=== PATIENT | male | born 1935 | race Caucasian/White ===

== ENCOUNTER 2020-03-28 13:09 | Inpatient (IN) | payer MEDICARE, SELFPAY ==
[2020-03-28] VITALS (14 sets, daily range): BP systolic 98–184; BP diastolic 59–98; PULSE 72–117; RESP 17–94; TEMP 36.3–36.9; O2SAT 93–100; BMI 35.6
--- NOTE | ~2020-03-28 | XR_ITS ---
XR chest 2V DATE: 03/31/2020 10:06 INDICATION: Shortness of breath. Pneumonia. Pleural effusion. Congestive heart failure. Weakness. TECHNIQUE: AP and lateral views COMPARISON: 03/28/2020 CT chest abdomen pelvis 03/28/2020 portable AP chest FINDINGS: Again noted are bilateral pleural effusions, small on the left, particularly large on the r ight. There are bibasilar infiltrates and/or atelectasis. There is aortic arch calcification. Degenerative changes of the thoracic and lumbar spine. IMPRESSION: Bilateral pleural effusions, right larger than left and bilateral lower lung infiltrate a nd/or atelectasis, increased on the left since 03/28/2020 Reviewed, dictated and finalized at location A. IMPRESSION: Bilateral pleural effusions, right larger than left and bilateral l ower lung infiltrate and/or atelectasis, increased on the left since 03/28/2020
--- NOTE | ~2020-03-28 | CT_ITS ---
EXAMINATION: CT chest abdomen pelvis w con DATE: 03/28/2020 15:43 INDICATION: Shortness of breath TECHNIQUE: Computed tomography (CT) of the chest, abdomen, and pelvis was performed with 100 cc Omnip aque 350 intravenous contrast. Automated exposure control and iterative reconstruction technique were employed. Exam dose: 1916.94 mGy-cm total exam DLP. COMPARISON: 03/28/2020 portable AP chest 09/01/2012 CT thorax FINDINGS: CHEST CT: There is a large right pleural effusion and moderate left pleural effusion. There is compressive midd le and lower lobe atelectasis on the right due to the right large pleural effusion. There is mild dep endent compressive left lower lobe atelectasis secondary to the pleural effusion. Heart size is normal. There is no pericardial effusion. There are prominent coronary artery calcifica tions. There is prominent aortic as well as great vessel calcifications. Prominent mitral annulus marian cification. Aortic valve calcifications. No thoracic aortic aneurysm or dissection is evident. There is mild subcarinal lymph node prominence as well as nonspecific mild right hilar and lesser lef t hilar lymph node prominence, possibly reactive. Moderate emphysematous changes. There is mild dependent left upper lobe atelectasis. Mild bilateral gynecomastia. ABDOMEN/PELVIS CT: The liver is unremarkable. Small stones are suggested in the dependent aspect of the gallbladder. No gallbladder wall thickening, distention or pericholecystic fluid or inflammation. No bile duct or linares creatic duct dilatation. No pancreatic mass lesion or calcification is evident. Normal splenic size o ccasional hepatic and splenic granulomas, consistent with old granulomatous disease. No significant abnormality of the adrenal glands is evident. There is atrophy and prominent scarring of the right kidney. Approximately 5.5 x 10 mm nonobstructive calculus of the right kidney. A several millimeter mid right renal calculus is noted. Probable 9 mm lower pole left renal cyst. No ureteral calculus or hydronephrosis is noted on either s tatianna. Mild prostate enlargement. Prostate calcifications. The appendix is not localized. No evidence of appendicitis. There are multiple colonic diverticula of left and to a lesser extent right colon; no evidence of diverticulitis. No bowel obstruction or fr ee air. There are extensive calcifications of the abdominal aorta and iliac and femoral arteries. Diffuse idiopathic skeletal hyperostosis of the thoracic and lumbar spine. There is bilateral hip osteoarthritis. IMPRESSION: Bilateral pleural effusions, larger on the right, with associated middle and right great er than left lower lobe atelectasis Moderate emphysematous changes. Extensive atherosclerosis including coronary arteries, thoracic and abdominal aortic, great vessels, iliac and femoral arteries Scarring and atrophy of the right kidney; nonobstructive right nephrolithiasis Diverticulosis of the colon; no CT evidence of diverticulitis Reviewed, dictated and finalized at Location [facility]. Reviewed, dictated and finalized at location B. IMPRESSION: Bilateral pleural effusions, larger on the right, with associated middle and right greater than left lower lobe atelectasis Moderate emphysematous changes. Extensive atherosclerosis including coronary arteries, thoracic and abdominal a ortic, great vessels, iliac and femoral arteries Scarring and atrophy of the right kidney; nonobstructive right nephrolithiasis Diverticulosis of the colon; no CT evidence of diverticulitis
--- NOTE | ~2020-03-28 | XR_ITS ---
XR chest 1V portable DATE: 03/28/2020 14:06 INDICATION: Shortness of breath, respiratory distress TECHNIQUE: Portable AP chest on 03/28/2020 at 1402 hours COMPARISON: 01/28/2015 AP portable chest FINDINGS: There is opacification of the lower half of the right hemithorax which may be due to any co mbination of elevated diaphragm, right lower lung atelectasis, consolidation and/or right pleural eff usion. There is patchy infiltrate in the perihilar areas and left lower lung. Differential diagnosis include s pulmonary edema, pneumonia, aspiration. Small left pleural effusion. Heart size is enlarged. Thoracic aortic calcification. There is pulmonary vascular congestion or redi stribution. There is interstitial pulmonary prominence including Héctor B-lines, suggesting pulmonary interstitial edema. Diffuse osteopenia. Diffuse idiopathic skeletal hyperostosis of the thoracic spine. IMPRESSION: Opacification right lower half of the hemithorax, which may be due to any combination of elevated diaphragm, pleural effusion and lower right lung atelectasis and/or consolidation Cardiomegaly, congestive changes including evidence of pulmonary interstitial edema. Small left pleur al effusion Patchy perihilar infiltrates and left lower lung infiltrate Reviewed, dictated and finalized at location B. IMPRESSION: Opacification right lower half of the hemithorax, which may be due to any combination of elevated diaphragm, pleural effusion and lower right lung atelectasis and/or consolidation Cardiomegaly, congestive changes including evidence of pulmonary interstitial e rafat. Small left pleural effusion Patchy perihilar infiltrates and left lower lung infiltrate
--- NOTE | 2020-03-28 13:16 | ECG_ITS ---
Measurements Intervals [place] Rate: 122 P: 24 VT: 132 QRS: 14 QRSD: 112 T: 42 QT: 325 QTc: 464 Interpretive Statements SINUS TACHYCARDIA INTRAVENTRICULAR CONDUCTION DELAY DELAYED PRECORDIAL R/S TRANSITION BASELINE ARTIFACT- I, II, III, AVR, AVL, AVF, V3-V6 ABNORMALECG Electronically Signed On 03-28-2020 16:19:07 CDT by Sarwat Tolentino D.O.
--- NOTE | 2020-03-28 13:18 | ED.SOB ---
HPI - SOB/Dyspnea General Chief Complaint: Shortness of Breath/Dyspnea Stated Complaint: resp. distress Time Seen by Provider: 03/28/20 13:16 History of Present Illness HPI Narrative: Patient presents via EMS for shortness of breath. He comes from home and his says that he does not like to call for the ambulance until he really really needs it. The EMS staff says that he was arana and shallow breathing and looked very bad. They said he had improved dramatically by the time they got here. He is large and heavy and they had to drag him out which caused numerous skin tears on his arms. MD elicited complaint: shortness of breath Pertinent past history: COPD Onset (ago): unknown Timing: constant Related Data Allergies Allergy/AdvReac Type Severity Reaction Status Date / Time No Known Allergies Allergy Unverified 01/28/15 17:02 Review of Systems Review of Systems: Narrative: Unable to obtain a review of systems since the patient cannot speak. [facility] Past Medical History Medical History (Updated 03/28/20 @ 17:08 by Annabelle Hunter MD) COPD (chronic obstructive pulmonary disease) Morbid obesity Family History Family History (Updated 12/06/14 @ 09:19 by DOCTOR UNKNOWN) Mother Family history of malignant neoplasm Other Diabetes mellitus Hypertension Social History Social History Smoking status: Former smoker Smoking end date: 09/06/04 Alcohol intake: never Gender identity (if verbalized by the patient): Male Exam Narrative: Exam Narrative: GENERAL: Diaphoretic, pale, overweight elderly man, in significant distress. HEAD: Normocephalic, atraumatic. EYES: PERRLA and EOMI. ENT: Nares clear, no rhinorrhea or epistaxis. Mucous membranes moist. NECK: Supple. CHEST: Clear to auscultation. Poor air movement. HEART: Regular rate and rhythm. No murmur heard. Normal peripheral pulses. ABDOMEN: Soft, nontender, nondistended, normal active bowel sounds. EXTREMITIES: Normal range of motion. No edema. SKIN: Warm, dry, no rash. NEURO: No focal deficits. Alert. PSYCH: Flat affect. Course Consultations Consultation #1: Called Concepcion and she agrees to admit to IMU for . Date: 03/28/20 Time: 17:47 Vital Signs Vital signs: Vital Signs Temperature 97.3 F L 03/28/20 13:13 Pulse Rate 117 H 07/23/20 13:13 Respiratory Rate 94 H 03/28/20 13:13 Blood Pressure 184/98 H 03/28/20 13:13 Pulse Oximetry 94 03/28/20 13:13 Temperature 97.3 F L 03/28/20 13:13 Pulse Rate 89 03/28/20 16:01 Respiratory Rate 18 03/28/20 15:23 Blood Pressure 143/73 H 03/28/20 16:01 Pulse Oximetry 97 03/28/20 16:01 MDM - SOB/Dyspnea Medical Records Attestation: I reviewed the patient's medical records. Lab Data Attestation: I reviewed the patient's lab results. Result diagrams: 03/28/20 13:35 03/28/20 13:34 Labs: Lab Results 03/28/20 03/28/20 03/28/20 Range/Units 13:34 13:35 13:51 WBC 10.5 H (4.5-10.0) K/mm3 RBC 5.03 (4.6-6.20) M/mm3 Hgb 13.4 L (14.0-18.0) g/dL Hct 46.2 (42.0-52.0) % MCV 91.8 (80-100) fl MCH 26.6 (26-34) pg MCHC 29.0 L (32-36) g/dl RDW 15.3 H (11.5-14.5) % Plt Count 296 (150-375) k/mm3 MPV 10.9 H (7.4-10.4) fl Immature Gran % (Auto) 0.5 (0-0.5) % Neut % (Auto) 55.8 (45.5-73.1) % Lymph % (Auto) 33.7 (18.3-44.2) % [place] % (Auto) 7.1 (2.6-8.5) % Eos % (Auto) 2.2 (0-4.4) % Baso % (Auto) 0.7 (0.2-1.2) % Lymph # (Auto) 3.54 H (0.9-3.2) K/mm3 [place] # (Auto) 0.8 H (0.1-0.6) K/mm3 Eos # (Auto) 0.2 (0-0.3) K/mm3 Baso # (Auto) 0.1 (0.0-0.1) K/mm3 Abs Immat Gran (auto) 0.05 H (0.00-0.031) K/mm3 Absolute Neuts (auto) 5.9 (1.3-6.7) K/mm3 Absolute Nucleated RBC 0.0 (0.0-0.012) K/mm3 Nucleated RBC % 0.0 (0.0-0.2) % Platelet Estimate Adequate (Adequate) Anisocytosis 1+ (NORMAL) Ovalocytes 1+ (NORMAL) Stomatocytes
[2020-03-28 13:42] LABS: Basophils Absolute Auto 0.1 K/mm3 (0.0-0.1); Basophils Percent Auto 0.7 % (0.2-1.2); Eosinophils Absolute Auto 0.2 K/mm3 (0-0.3); Eosinophils Percent Auto 2.2 % (0-4.4); Hematocrit 46.2 % (42.0-52.0); Hemoglobin 13.4 g/dL (14.0-18.0); Immature Granulocyte Absolute 0.05 K/mm3 (0.00-0.031); Immature Granulocyte Percent A 0.5 % (0-0.5); Lymphocytes Absolute Auto 3.54 K/mm3 (0.9-3.2); Lymphocytes Percent Auto 33.7 % (18.3-44.2); Mean Corpuscular Hemoglobin 26.6 pg (26-34); Mean Corpuscular Volume 91.8 fl (80-100); Mean Platelet Volume 10.9 fl (7.4-10.4); Monocytes Absolute Auto 0.8 K/mm3 (0.1-0.6); Monocytes Percent Auto 7.1 % (2.6-8.5); Neutrophils Absolute Auto 5.9 K/mm3 (1.3-6.7); Neutrophils Percent Auto 55.8 % (45.5-73.1); Platelet Count Result 296 k/mm3 (150-375); Red Blood Count 5.03 M/mm3 (4.6-6.20); Red Cell Distribution Width 15.3 % (11.5-14.5); White Blood Count 10.5 K/mm3 (4.5-10.0)
[2020-03-28 13:54] LABS: Platelet Estimate Adequate (Adequate)
[2020-03-28 13:55] LABS: Alveolar/Arterial O2 Gradient 181.1 mmHg; Fractional Inspired Oxygen 45 %; HCO3 ABG 26.1 mEq/l (22.0-26.0); Oxygen Content ABG 18.6 %vol (16.0-22.0); Oxygen Saturation ABG 96.9 % (95.0-100.0); Oxyhemoglobin 95.3 % THb (90.0-100.0); PCO2 ABG 43.4 mmHg (35.0-45.0); PO2 ABG 90.4 mmHg (80.0-100.0); PO2 FiO2 Ratio Arterial Blood 2.01 %; Total Hemoglobin 13.8 g/dL (12.0-18.0); pH ABG 7.397 (7.350-7.450)
[2020-03-28 13:55] LABS: Alanine Aminotransferase 27 U/L (4-50); Albumin Level 4.1 g/dL (3.5-5.1); Alkaline Phosphatase 138 U/L (38-126); Anion Gap 11.9 mmol/L (7-16); Aspartate Amino Transferase 50 U/L (17-59); Bilirubin,Total 0.6 mg/dL (0.2-1.3); Blood Urea Nitrogen 19 mg/dL (9-20); Calcium 9.4 mg/dL (8.4-10.2); Carbon Dioxide 32 mmol/L (22-30); Chloride 98 mmol/L (98-107); Estimated CRCL calculation 95 ml/min; Estimated Glomerular Filt Rate > 60; Glucose 222 mg/dL (75-110); Potassium 3.9 mmol/L (3.4-5.0); Sodium 138 mmol/L (137-145)
[2020-03-28 13:57] LABS: Anisocytosis 1+ (NORMAL); Ovalocytes 1+ (NORMAL); Stomatocytes 1+ (NORMAL)
[2020-03-28 13:59] LABS: Device BIPAP; Modified Allen's Test Pass; Site Drawn LEFT RADIAL
[2020-03-28 14:07] LABS: Expiratory Pressure 8 cmH2O; Inspiratory Pressure 18 cmH2O
[2020-03-28 14:07] LABS: NT Pro B Type Natriuretic Pept 929 PG/ML (5-100); Troponin I 0.017 ng/mL (0.000-0.034)
[2020-03-28] MEDS: IPRATROPIUM BR 0.02% INH SOLN 0.5 MG/2.5 ML VIAL INHALATION (14:08)
[2020-03-28] MEDS: ALBUTEROL SULFATE NEB 2.5 MG/0.5 ML INH 5 MG INHALATION (14:08)
[2020-03-28] MEDS: FUROSEMIDE INJ 40 MG/4 ML VIAL IV PUSH (15:04)
[2020-03-28 15:27] LABS: Lactic Acid 2.3 mmol/L (0.7-2.1)
[2020-03-28 18:22] LABS: Lactic Acid Reflex 1.1 mmol/L (0.7-2.1)
--- NOTE | 2020-03-28 20:29 | PC.NURSE ---
Patient is to be boarded in ED-call placed to central supply for condom cath for patient skin integrity due to continued urine incontinence
--- NOTE | 2020-03-28 21:25 | PM.IMHP ---
H&P: HPI History of Present Illness Chief complaint: shortness of breath Narrative: Date and time of patient contact: 03/28/2020 at 10:10 p.m. Jm Wheeler is a 84 year old male with a past medical history of diastolic congestive heart failure, atrial fibrillation, valvular stenosis, and COPD who presented to the ER via EMS due to respiratory distress. the patient reports that he has been more short of breath for the last several weeks. Reports that his shortness of breath became so bad that he told his to call EMS. Just before EMS arriving at his house the patient collapsed onto the couch in his eyes rolled back in his head. He has noticed increased lower extremity swelling, scrotal edema and abdominal distension. He reports that his family member had to go buy him a larger size of depends a few weeks ago due to his abdominal distension. He denies any recent changes in his cardiac medications. He takes Lasix 40 mg daily. He is on chronic home O2 of 2.5 L. he reports that when he takes his oxygen off the ambulate to the bathroom he develops chest pain that starts in the left upper chest travels across his precordium in up into his right chest. It is relieved with rest and placing his oxygen back on. He has been having this pain on and off for the last 6-8 weeks. He has chronic orthopnea and is slept in a reclining sofa for the last several years. Despite sleeping in his upright position he has had more orthopnea. He has chronic urinary frequency and frequent urinary dribbling. he denies any dysuria or hematuria. He has multiple areas of bruising on his hands in arms. He denies any recent falls and states that he bruises easily. He is on Xarelto at home. He reports increased dyspnea with conversation. He states that he forgets to breathe when he starts talking. he reports having normal bowel movements without hematochezia or melena. He does have macular degeneration but states that his vision has been stable. He reports that he gets injections in alternating eyes every 4 weeks. The patient was on 5 L nasal cannula at the time of my evaluation maintaining oxygen saturations between 90 and 92%. Source of information: Past medical records and patient report. Patient is a good historian. Review of Systems Review of Systems: Narrative: 12 systems were reviewed with pertinent positives and negatives per HPI. Except as documented in the HPI, all other systems were reviewed and are negative. [facility] Past Medical History Medical History (Updated 03/28/20 @ 23:21 by Shasha Garrett DO) Atrial fibrillation with history of MYLA cardioversion June 2012 BPH (benign prostatic hyperplasia) C. difficile colitis January 2015 Chronic respiratory failure with hypoxia, on home O2 therapy 2.5 L nasal cannula COPD (chronic obstructive pulmonary disease) PFTs April 2019: Moderate obstructive deficits, severe small airway disease, mild air trapping, moderate diffusion impairment CVA (cerebral vascular accident) Dementia Depression with anxiety GERD (gastroesophageal reflux disease) Grade I diastolic dysfunction echocardiogram May 2015: Moderate concentric left ventricular hypertrophy, grade 1 diastolic dysfunction, increased left heart filling pressures, ejection fraction 70%, moderate mitral stenosis with mean gradient of 5, valve area of 1.3, moderate aortic stenosis with valve area of 1.1 cm, trace aortic valve regurgitation, RVSP of 34, mild tricuspid regurgitation Hyperlipidemia Kidney stones Macular degeneration Morbid obesity Obstructive sleep apnea does not use CPAP Surgical History Surgical History (Updated 03/28/20 @ 20:35 by Shasha Garrett DO) History of left knee replacement 2007 History of prostate surgery Family History Family History Mother Diabetes mellitus CHF (congestive heart failure) Acute myocardial infarction COPD (
--- NOTE | 2020-03-28 22:08 | ADMIMU ---
This patient, Jm Wheeler, was admitted to IMU status, and placed in Intensive Care Unit-4 on 03/28/2020 at 2155. Patient/family oriented to hospital policies and general routines including ID bracelet, bed and alarms, visiting hours, pain management, procedures, bathroom and other care routines, personal items, smoking policy, room service/diet, and visiting hours. Valuables list has been completed. Information on how to activate the Rapid Response Team has been discussed. Patient/Family are encouraged to report perceived risks to care and to ask questions if they do not understand what they are told or what they should do.
[2020-03-28 23:48] LABS: Troponin I 0.157 ng/mL (0.000-0.034)
[2020-03-28 23:51] LABS: Add Urine Microscopic? YES; Appearance Urine Clear (Clear); Bilirubin Urine Negative (Negative); Blood Urine 1+ (Negative); Color Urine Yellow (Yellow); Glucose Urine UA Negative (Negative); Ketones Urine Negative (Negative); Leukocyte Esterase Ur Negative LEU/UL (Negative); Nitrate Urine Negative (Negative); Protein Urine Negative (Negative); RBC Urine 21-50 /hpf (0-2); Squamous Epithelial Cell Urine Rare /hpf (Few); Urobilinogen Urine Negative mg/dL (<2.0)
[2020-03-28 23:52] LABS: Specific Grav Ur 1.044 (1.001-1.035)
[2020-03-29] VITALS (24 sets, daily range): BP systolic 94–124; BP diastolic 43–66; PULSE 64–92; RESP 16–39; TEMP 36.3–36.9; O2SAT 91–98
--- NOTE | 2020-03-29 | ECHO_ITS ---
Patient Info Name: Jm Wheeler Age: 84 years : 1935 Gender: Male Ht: 71 in Wt: 255 lbs BSA: 2.45 m2 HR: 67 bpm BP: 115 / 61 mmHg Technical Quality: Good Exam Date: 03/29/2020 10:13 AM Exam Location: [facility] Patient Status: Inpatient Admit Date: 03/28/2020 Staff Ordering Physician: Shasha Garrett DO Home Office Representative: Mohsen Davies RDCS, RT Attending Provider: Johnathon Martinez MD Referring Physician: Gerry HORNER; Exam Type: CA echo doppler color flow Study Info Indications I50.9 - Heart failure, unspecified Complete two-dimensional, color flow and Doppler transthoracic echocardiogram is performed. Summary 1. Left ventricular chamber dimension is mildly enlarged. 2. Left ventricular systolic function is normal, estimated at 60-65%. 3. There is moderately increased left ventricular wall thickness. 4. The left ventricular diastolic function is grade I diastolic dysfunction. 5. E/e' 29 is significantly elevated. 6. Left atrial chamber dimension is moderately enlarged. 7. There is severe aortic valve sclerosis. 8. There is critical aortic valve stenosis with a peak velocity of 445 cm/s, mean gradient of 48 mmHg, and aortic valve area of 0.6 cm2. 9. The mitral valve is not well visualized and there is severely calcified annulus. 10. There is mild mitral valve regurgitation. 11. There is mild tricuspid valve regurgitation. 12. Mild pulmonary hypertension, estimated pulmonary arterial systolic pressure is 45 mmHg. Left Ventricle E/e' 29 is significantly elevated. Left ventricular chamber dimension is mildly enlarged. Left ventricular systolic function is normal, estimated at 60-65%. There is moderately increased left ventricular wall thickness. The left ventricular diastolic function is grade I diastolic dysfunction. Right Ventricle Right ventricular chamber dimension is normal. Right ventricular systolic function is normal. Left Atria Left atrial chamber dimension is moderately enlarged. Right Atria Right atrial chamber dimension is normal. Aortic Valve There is critical aortic valve stenosis with a peak velocity of 445 cm/s, mean gradient of 48 mmHg, and aortic valve area of 0.6 cm2. The aortic valve is not well visualized. There is severe aortic valve sclerosis. There is no aortic valve regurgitation. Pulmonic Valve There is no pulmonic regurgitation. Mitral Valve The mitral valve is not well visualized and there is severely calcified annulus. There is no mitral valve stenosis. There is mild mitral valve regurgitation. Tricuspid Valve There is mild tricuspid valve regurgitation. Mild pulmonary hypertension, estimated pulmonary arterial systolic pressure is 45 mmHg. Pericardium/Pleural There is no pericardial effusion. Inferior Vena Cava Normal inferior vena cava with >50% collapse upon inspiration consistent with normal right atrial pressure, 5 mmHg. Aorta The aortic root size at the sinus of Valsalva is normal. Left Ventricular Outflow Tract Name Value Normal LVOT 2D LVOT Diameter 2.0 cm LVOT Doppler LVOT Peak Gradient 3 mmHg
[2020-03-29 00:44] LABS: SARS-CoV-2 RNA PCR Negative
[2020-03-29] MEDS: LIDOCAINE 5% PATCH 1 PATCH TRANSDERM ×2 (01:11→21:26)
[2020-03-29] MEDS: traZODone HCL 50 MG TABLET 200 MG PO ×2 (02:26→21:22)
[2020-03-29 05:40] LABS: Hematocrit 39.3 % (42.0-52.0); Mean Corpuscular HGB Conc 30.5 g/dl (32-36); Mean Corpuscular Hemoglobin 27.2 pg (26-34); Mean Corpuscular Volume 89.1 fl (80-100); Platelet Count Result 260 k/mm3 (150-375); Red Blood Count 4.41 M/mm3 (4.6-6.20); Red Cell Distribution Width 15.1 % (11.5-14.5); White Blood Count 6.3 K/mm3 (4.5-10.0)
[2020-03-29 05:54] LABS: Anion Gap 12.9 mmol/L (7-16); Blood Urea Nitrogen 20 mg/dL (9-20); Calcium 9.3 mg/dL (8.4-10.2); Carbon Dioxide 33 mmol/L (22-30); Chloride 96 mmol/L (98-107); Estimated CRCL calculation 79 ml/min; Estimated Glomerular Filt Rate > 60; Glucose 121 mg/dL (75-110); Potassium 3.9 mmol/L (3.4-5.0); Sodium 138 mmol/L (137-145)
[2020-03-29 06:09] LABS: Hemoglobin A1C 5.8 % (<5.7)
[2020-03-29 06:11] LABS: Troponin I 0.126 ng/mL (0.000-0.034)
[2020-03-29] MEDS: ALBUTEROL SULFATE (*SP) AEROSOL 1 PUFF 2 PUFF INHALATION ×4 (08:06→20:27)
[2020-03-29] MEDS: POTASSIUM CHLORIDE 20 MEQ TABLET.ER PO (09:10)
[2020-03-29] MEDS: PRAVASTATIN SODIUM 20 MG TABLET 80 MG PO (09:11)
[2020-03-29] MEDS: FUROSEMIDE INJ 40 MG/4 ML VIAL IV PUSH ×2 (09:11→17:34)
[2020-03-29] MEDS: FLECAINIDE ACETATE 100 MG TABLET PO ×2 (09:11→17:56)
[2020-03-29] MEDS: FINASTERIDE 5 MG TABLET PO (09:11)
--- NOTE | 2020-03-29 14:01 | PC.NURSE ---
This patient, Jm Wheeler, was received from [ICU 4 ] on 03/29/20 at 1402 to room 200. Report received by Ryanne Mar RN. Personal belongings list checked and signed. Patient/family oriented to unit policies and routines
--- NOTE | 2020-03-29 14:08 | PC.NURSE ---
Patient transferred to room 200 at 1400. Medications and Bipap moved with patient. Patient had no personal belongings in room. Patient moved via floor bed with telemetry box in place. Sean given report.
--- NOTE | 2020-03-29 15:44 | PM.IMPN ---
Progress Note: A&P Assessment and Plan (1) Acute exacerbation of CHF (congestive heart failure): Qualifiers: Heart failure type: unspecified Qualified Code(s): I50.9 - Heart failure, unspecified Code(s): I50.9 - Heart failure, unspecified Status: Acute Assessment and Plan: Most recent Echo showing diastolic dysfunction with EF 70% and moderate in May 2015. BNP [address] showing bilateral pleural effusions R>L with associated right middle and bilateal lower lobe atelectasis. Currently on Lasix IV and UOP okay. Repeat Echo pending. COVID negative. Continue to monitor. (2) Acute and chronic respiratory failure with hypoxia: Code(s): J96.21 - Acute and chronic respiratory failure with hypoxia Status: Acute Assessment and Plan: Patient is respiratory distress prompting EMS call. ABG essentially normal on BiPAP. Patient started on BiPAP and did well. He wore this overnight and Able to come off BiPAP this morning. Patient currently on 3 L nasal cannula. Family states the patient uses 2 L at home. Wean oxygen as tolerated. Encourage BiPAP at night. Patient has sleep apnea but is noncompliant with treatment. His could be contributing to his respiratory failure. (3) COPD (chronic obstructive pulmonary disease): Qualifiers: COPD type: COPD with acute exacerbation Qualified Code(s): J44.1 - Chronic obstructive pulmonary disease with (acute) exacerbation Code(s): J44.9 - Chronic obstructive pulmonary disease, unspecified Status: Acute Assessment and Plan: Patient presents with complaints of shortness of breath. Patient was started on BiPAP with improvement. Not on steroids. Continue Albuterol MDI and Spiriva. Wean O2 as toelrated. (4) Pleural effusion: Code(s): J90 - Pleural effusion, not elsewhere classified Status: Acute Assessment and Plan: Imaging showing bilateral pleural effusions right greater than left. May need thoracentesis once more stable. Continue diuresis. (5) Paroxysmal atrial fibrillation: Code(s): I48.0 - Paroxysmal atrial fibrillation Status: Acute Assessment and Plan: Telemetry reviewed. No evidence of recurrent paroxysmal AFib. Continue flecainide. Continue Xarelto. (6) Dementia: Code(s): F03.90 - Unspecified dementia without behavioral disturbance Status: Acute Assessment and Plan: Patient alert and orient x4. He may have mild dementia. Will continue Aricept. (7) Obstructive sleep apnea: Code(s): G47.33 - Obstructive sleep apnea (adult) (pediatric) Status: Acute Assessment and Plan: As above. Encourage compliance. (8) Elevated troponin: Code(s): R79.89 - Other specified abnormal findings of blood chemistry Status: Acute Assessment and Plan: Troponin normal on admission but climbed to 0.16 before trending back downward. EKG showing delayed transition with sinus tachycardia. Most likely related to above. Follow-up on echo report. Subjective Date/time seen: 03/29/20 15:44 Interval history: 84yo male with COPD and chronic resp failure here for increasing SOB. Patient states he feels great . He denies feeling short of breath. No chest pain. He is alert and oriented x4 but states patient downplays symptoms usually. Patient does not have a chronic Méndez at home. He wears 2 L nasal cannula at home. He denies any nausea or vomiting. Eating well. Patient off the BiPAP this morning. in the room and does asist with hx. She does state patient sleeps in recliner at home. Exam Narrative: Exam Narrative: AF 98/43 71 18 95% ra Gen - NARD Chest - Decreased BS in right mid and lower lung field and left lower lung. Nml RR. No conversational dyspnea CV - RRR S1/S2; Tele showing no significant dysrhythmias Abd - soft, NT/ND, +bs - Méndez secured draining clear yellow
[2020-03-29] MEDS: RIVAROXABAN 20 MG TABLET PO (17:56)
[2020-03-29] MEDS: DONEPEZIL HCL 10 MG TABLET PO (21:23)
[2020-03-30] VITALS (19 sets, daily range): BP systolic 99–138; BP diastolic 41–52; PULSE 69–85; RESP 18–22; TEMP 35.9–36.7; O2SAT 91–96
[2020-03-30 04:34] LABS: Basophils Percent Auto 0.3 % (0.2-1.2); Eosinophils Absolute Auto 0.1 K/mm3 (0-0.3); Eosinophils Percent Auto 1.3 % (0-4.4); Hemoglobin 11.7 g/dL (14.0-18.0); Immature Granulocyte Absolute 0.02 K/mm3 (0.00-0.031); Immature Granulocyte Percent A 0.2 % (0-0.5); Lymphocytes Absolute Auto 1.42 K/mm3 (0.9-3.2); Lymphocytes Percent Auto 15.2 % (18.3-44.2); Mean Corpuscular Volume 90.1 fl (80-100); Mean Platelet Volume 11.1 fl (7.4-10.4); Monocytes Absolute Auto 0.8 K/mm3 (0.1-0.6); Monocytes Percent Auto 8.8 % (2.6-8.5); Neutrophils Absolute Auto 6.9 K/mm3 (1.3-6.7); Neutrophils Percent Auto 74.2 % (45.5-73.1); Platelet Count Result 269 k/mm3 (150-375); Red Blood Count 4.33 M/mm3 (4.6-6.20); Red Cell Distribution Width 15.5 % (11.5-14.5); White Blood Count 9.3 K/mm3 (4.5-10.0)
[2020-03-30 04:48] LABS: Alanine Aminotransferase 23 U/L (4-50); Albumin Level 3.7 g/dL (3.5-5.1); Alkaline Phosphatase 91 U/L (38-126); Anion Gap 10.9 mmol/L (7-16); Aspartate Amino Transferase 28 U/L (17-59); Bilirubin,Total 0.5 mg/dL (0.2-1.3); Blood Urea Nitrogen 31 mg/dL (9-20); Calcium 8.9 mg/dL (8.4-10.2); Carbon Dioxide 34 mmol/L (22-30); Chloride 96 mmol/L (98-107); Estimated CRCL calculation 78 ml/min; Estimated Glomerular Filt Rate > 60; Glucose 111 mg/dL (75-110); Magnesium 2.3 mg/dL (1.6-2.3); Potassium 3.9 mmol/L (3.4-5.0); Sodium 137 mmol/L (137-145)
[2020-03-30] MEDS: ALBUTEROL SULFATE (*SP) AEROSOL 1 PUFF 2 PUFF INHALATION ×4 (08:05→20:38)
[2020-03-30] MEDS: POTASSIUM CHLORIDE 20 MEQ TABLET.ER PO (08:17)
[2020-03-30] MEDS: FLECAINIDE ACETATE 100 MG TABLET PO ×2 (08:18→17:06)
[2020-03-30] MEDS: PRAVASTATIN SODIUM 20 MG TABLET 80 MG PO (08:18)
[2020-03-30] MEDS: FUROSEMIDE INJ 40 MG/4 ML VIAL IV PUSH (08:18)
[2020-03-30] MEDS: FINASTERIDE 5 MG TABLET PO (08:19)
--- NOTE | 2020-03-30 12:33 | PM.CNCAR ---
Assessment and Plan Assessment and plan (1) Severe aortic stenosis: Code(s): I35.0 - Nonrheumatic aortic (valve) stenosis Status: Acute Assessment and Plan: severe/ critical aortic stenosis peak velocity 4.5 m/sec and mean gradient 48 mm Hg with HUGO calculated 0.6cm2. 2015 2D echocardiogram aortic valve area 1.1 cm2. Discussed options most directly TAVR as patient would be relatively poor candidate for SAVR given comorbidities. patient is very interested. This will need to be set up as an outpatient. He will follow up in our office post discharge 1-2 weeks and will discuss with Dr. Hicks referral to TAVR team at . counseled risks, benefits, and alternatives in this regard as well as the dangers nature of his aortic stenosis severity and the importance of avoiding significant intravascular volume depletion /hypotension. We also discussed the severe comorbidity and mortality risk associated with untreated aortic stenosis. patient verbalized understanding. All questions answered to his satisfaction. Cautious diuresis. continue statin given history of CVA. (2) Acute and chronic respiratory failure with hypoxia: Code(s): J96.21 - Acute and chronic respiratory failure with hypoxia Status: Acute Assessment and Plan: continue with antibiotics, bronchodilator therapy and oxygen supplementation. Noninvasive positive-pressure ventilation at night. Defer to primary service. (3) Acute exacerbation of CHF (congestive heart failure): Qualifiers: Heart failure type: unspecified Qualified Code(s): I50.9 - Heart failure, unspecified Code(s): I50.9 - Heart failure, unspecified Status: Acute Assessment and Plan: Cautious diuresis. Accurate input and output, daily weight. Avoid hypotension particularly in light of very severe/ critical aortic stenosis. Patient is hemodynamically stable at this time and much improved. Would reduce Lasix to 40 mg daily at this point. (4) Pleural effusion: Code(s): J90 - Pleural effusion, not elsewhere classified Status: Acute Assessment and Plan: Defer to primary service. Thoracentesis is being contemplated. (5) COPD (chronic obstructive pulmonary disease): Qualifiers: COPD type: COPD with acute exacerbation Qualified Code(s): J44.1 - Chronic obstructive pulmonary disease with (acute) exacerbation Code(s): J44.9 - Chronic obstructive pulmonary disease, unspecified Status: Acute Assessment and Plan: Bronchodilator therapy, and IV antibiotics. (6) Paroxysmal atrial fibrillation: Code(s): I48.0 - Paroxysmal atrial fibrillation Status: Acute Assessment and Plan: Maintaining sinus rhythm. Renal function stable as are electrolytes. May continue flecainide for the time being as this appears to be working well for him. However, ideally, an ischemic evaluation would be advised at some point to help ensure safety as underlying heart disease /CAD unacceptably increases risk for adverse events including . Does not appear patient was on concomitant AV ariadne blocking agents with flecainide which generally would be recommended. Monitor renal function electrolytes closely. (7) Chronic anticoagulation: Code(s): Z79.01 - FPC (current) use of anticoagulants Status: Acute Assessment and Plan: continue anticoagulation with Xarelto for the time being. Monitor for bleeding. H&H stable. History of Present Illness History of Present Illness Consult date/time: date of service:03/30/20 12:33 This is a cardiology consultation at the request of Dr. Martinez for our opinion regarding shortness of breath and critical aortic stenosis. Requesting physician: Johnathon Martinez MD Consult reason: aortic stenosis and shortness of breath Reason For Visit: COPD, CHF, Pneumonia, Pleural Effusion Narrative: Patient is a very pleasant 84-year-old male wi
--- NOTE | 2020-03-30 14:12 | PM.IMPN ---
Progress Note: A&P Assessment and Plan (1) Acute and chronic respiratory failure with hypoxia: Code(s): J96.21 - Acute and chronic respiratory failure with hypoxia Status: Acute Assessment and Plan: Patient developed respiratory distress at home prompting EMS call. ABG essentially normal on BiPAP. Patient started on BiPAP and did well. He wore BiPAP overnight but now refusing to wear this. Suspect acute respiratory failure multifactorial with CHF/COPD/untreated SAMMY/severe . Patient currently on 2 L nasal cannula which is his baseline. Encourage BiPAP at night. (2) Acute exacerbation of CHF (congestive heart failure): Qualifiers: Heart failure type: unspecified Qualified Code(s): I50.9 - Heart failure, unspecified Code(s): I50.9 - Heart failure, unspecified Status: Acute Assessment and Plan: BNP [address] showing bilateral pleural effusions R>L with associated right middle and bilateral lower lobe atelectasis. Currently on Lasix IV and UOP better today. Echo showing EF 60-65% with grade I DD and severe (HUGO 0.6cm2). COVID negative. Cardiology consult. Will back off on diuretics. Continue to monitor. (3) Bacteremia: Code(s): R78.81 - Bacteremia Status: Acute Assessment and Plan: BCx collected on admisison growing gram positive cocci in clusters in both aerobic bottles. WBC essentially normal and no fevers. Consider source from the skin or from his heart valve. UA noted and doubt Urinary source. Consider also PNA as well. Will start Rocephin and vancomycin. Follow up final blood culture results. Plan on repeating blood cultures in 1-2 days to see if this clears. Patient may need MYLA. This was discussed with Cardiology. (4) Severe aortic stenosis: Code(s): I35.0 - Nonrheumatic aortic (valve) stenosis Status: Acute Assessment and Plan: Patient with severe aortic stenosis. Cardiology consult. Will back off on diuretics. (5) COPD (chronic obstructive pulmonary disease): Qualifiers: COPD type: COPD with acute exacerbation Qualified Code(s): J44.1 - Chronic obstructive pulmonary disease with (acute) exacerbation Code(s): J44.9 - Chronic obstructive pulmonary disease, unspecified Status: Acute Assessment and Plan: Patient was started on BiPAP with improvement. Not on steroids but no significant wheezing appreciated. Continue Albuterol MDI and Spiriva. Patient at baseline oxygen requirement. (6) Pleural effusion: Code(s): J90 - Pleural effusion, not elsewhere classified Status: Acute Assessment and Plan: Imaging showing bilateral pleural effusions right greater than left. May need thoracentesis once more stable. (7) Elevated troponin: Code(s): R79.89 - Other specified abnormal findings of blood chemistry Status: Acute Assessment and Plan: Troponin normal on admission but climbed to 0.16 before trending back downward. EKG showing delayed transition with sinus tachycardia. Elevated Trop most likely related to above. Echo showing no wall motion abnormalities. (8) Paroxysmal atrial fibrillation: Code(s): I48.0 - Paroxysmal atrial fibrillation Status: Acute Assessment and Plan: Telemetry reviewed. No evidence of recurrent paroxysmal AFib. Continue flecainide. Continue Xarelto. (9) Dementia: Code(s): F03.90 - Unspecified dementia without behavioral disturbance Status: Acute Assessment and Plan: Patient alert and orient x4. He may have mild dementia. Will continue Aricept. (10) Obstructive sleep apnea: Code(s): G47.33 - Obstructive sleep apnea (adult) (pediatric) Status: Acute Assessment and Plan: As above. Encourage compliance. Subjective Date/time seen: 03/30/20 14:12 Interval history: 84yo male with COPD and chronic resp failure here for linda
[2020-03-30] MEDS: RIVAROXABAN 20 MG TABLET PO (17:07)
[2020-03-30] MEDS: DONEPEZIL HCL 10 MG TABLET PO (21:48)
[2020-03-30] MEDS: LIDOCAINE 5% PATCH 1 PATCH TRANSDERM (21:48)
[2020-03-30] MEDS: traZODone HCL 50 MG TABLET 200 MG PO (21:48)
[2020-03-31] VITALS (20 sets, daily range): BP systolic 105–125; BP diastolic 40–72; PULSE 60–79; RESP 18–25; TEMP 35.7–37.1; O2SAT 91–98
[2020-03-31 04:37] LABS: Albumin Level 3.3 g/dL (3.5-5.1); Anion Gap 8.8 mmol/L (7-16); Blood Urea Nitrogen 27 mg/dL (9-20); Calcium 8.6 mg/dL (8.4-10.2); Carbon Dioxide 35 mmol/L (22-30); Chloride 93 mmol/L (98-107); Estimated CRCL calculation 90 ml/min; Estimated Glomerular Filt Rate > 60; Glucose 143 mg/dL (75-110); Magnesium 2.2 mg/dL (1.6-2.3); Potassium 3.8 mmol/L (3.4-5.0); Sodium 133 mmol/L (137-145)
[2020-03-31] MEDS: ALBUTEROL SULFATE (*SP) AEROSOL 1 PUFF 2 PUFF INHALATION ×3 (08:11→17:11)
[2020-03-31] MEDS: POTASSIUM CHLORIDE 20 MEQ TABLET.ER PO (08:34)
[2020-03-31] MEDS: FUROSEMIDE 40 MG TABLET PO (08:35)
[2020-03-31] MEDS: FLECAINIDE ACETATE 100 MG TABLET PO ×2 (08:35→16:16)
[2020-03-31] MEDS: PRAVASTATIN SODIUM 20 MG TABLET 80 MG PO (08:36)
[2020-03-31] MEDS: FINASTERIDE 5 MG TABLET PO (08:36)
--- NOTE | 2020-03-31 13:23 | PM.PNCARD ---
Progress Note: A&P Assessment and Plan (1) Severe aortic stenosis: Code(s): I35.0 - Nonrheumatic aortic (valve) stenosis Status: Acute Assessment and Plan: severe/ critical aortic stenosis peak velocity 4.5 m/sec and mean gradient 48 mm Hg with HUGO calculated 0.6cm2. 2015 2D echocardiogram aortic valve area 1.1 cm2. Outpatient TAVR workup. Cautious diuresis. Change to oral Lasix 40 mg daily. continue statin given history of CVA. (2) Acute and chronic respiratory failure with hypoxia: Code(s): J96.21 - Acute and chronic respiratory failure with hypoxia Status: Acute Assessment and Plan: continue with antibiotics, bronchodilator therapy and oxygen supplementation. Noninvasive positive-pressure ventilation at night. Defer to primary service. (3) Acute exacerbation of CHF (congestive heart failure): Qualifiers: Heart failure type: unspecified Qualified Code(s): I50.9 - Heart failure, unspecified Code(s): I50.9 - Heart failure, unspecified Status: Acute Assessment and Plan: Cautious diuresis. Change to oral Lasix 40 mg p.o. daily. Accurate input and output, daily weight. Avoid hypotension particularly in light of very severe/ critical aortic stenosis. Patient is hemodynamically stable at this time and much improved. troponin elevation secondary to acute respiratory failure, CHF with underlying critical aortic stenosis. Not acute coronary syndrome and/or plaque rupture. Cannot exclude underlying CAD, however, ischemic workup in association with TAVR consideration as outpatient. (4) Pleural effusion: Code(s): J90 - Pleural effusion, not elsewhere classified Status: Acute Assessment and Plan: Defer to primary service. Thoracentesis is being contemplated. (5) COPD (chronic obstructive pulmonary disease): Qualifiers: COPD type: COPD with acute exacerbation Qualified Code(s): J44.1 - Chronic obstructive pulmonary disease with (acute) exacerbation Code(s): J44.9 - Chronic obstructive pulmonary disease, unspecified Status: Acute Assessment and Plan: Bronchodilator therapy, and IV antibiotics. (6) Paroxysmal atrial fibrillation: Code(s): I48.0 - Paroxysmal atrial fibrillation Status: Acute Assessment and Plan: Maintaining sinus rhythm. Renal function stable as are electrolytes. May continue flecainide for the time being as this appears to be working well for him. Monitor renal function electrolytes closely. (7) Chronic anticoagulation: Code(s): Z79.01 - shelter (current) use of anticoagulants Status: Acute Assessment and Plan: continue anticoagulation with Xarelto for the time being. Monitor for bleeding. H&H stable. Subjective Date/time seen: date of service:03/31/20 13:23 Interval history: Follow-up for shortness of breath, aortic stenosis patient feels much better this morning. Denies significant shortness of breath. No chest pain. No new issues overnight. No palpitations. Edema improving as well. Denies dizziness. Review of Systems Review of Systems: All systems reviewed & are unremarkable except as noted in HPI and below Constitutional: Constitutional: Reports as per HPI, Reports no additional constitutional complaints, Denies difficulty sleeping and Reports weakness Eyes: Eyes: Reports as per HPI and Reports no additional eye complaints ENT: Reports system reviewed and no additional complaints, except as documented and Reports as per HPI Cardiovascular: Cardiovascular: Reports as per HPI, Reports no additional cardiovascular complaints, Denies diaphoresis, Reports pedal edema, Reports leg edema, Denies lightheadedness, Denies palpitations, Reports dyspnea and Reports dyspnea on exertion Respiratory: Respiratory: Reports as per HPI, Reports no additional respiratory complaints, Reports cough, Reports dyspnea on exertion and Repo
[2020-03-31] MEDS: RIVAROXABAN 20 MG TABLET PO (16:17)
--- NOTE | 2020-03-31 16:56 | PM.IMPN ---
Progress Note: A&P Assessment and Plan (1) Acute and chronic respiratory failure with hypoxia: Code(s): J96.21 - Acute and chronic respiratory failure with hypoxia Status: Acute Assessment and Plan: Patient developed respiratory distress at home prompting EMS call. ABG essentially normal on BiPAP. Patient started on BiPAP and did well. He wore BiPAP overnight but now refusing to wear this. Suspect acute respiratory failure multifactorial with CHF/COPD/untreated SAMMY/severe . Patient currently on 2 L nasal cannula which is his baseline. Encourage BiPAP at night. (2) Acute exacerbation of CHF (congestive heart failure): Qualifiers: Heart failure type: unspecified Qualified Code(s): I50.9 - Heart failure, unspecified Code(s): I50.9 - Heart failure, unspecified Status: Acute Assessment and Plan: BNP [address] showing bilateral pleural effusions R>L with associated right middle and bilateral lower lobe atelectasis. Currently on Lasix IV and UOP better today. Echo showing EF 60-65% with grade I DD and severe (HUGO 0.6cm2). COVID negative. Cardiology consult. Will back off on diuretics. Continue to monitor. (3) Bacteremia: Code(s): R78.81 - Bacteremia Status: Acute Assessment and Plan: BCx collected on admisison growing gram positive cocci in clusters in both aerobic bottles. WBC essentially normal and no fevers. Consider source from the skin or from his heart valve. UA noted and doubt urinary source. Consider also PNA as well. Rocephin and vancomycin started. BCx have returned Coag Negative Staph in 2of2 bottles. Follow up on sensitivities. Repeat blood cultures. Patient may need MYLA. ID consult. Stop Rocephin (4) Severe aortic stenosis: Code(s): I35.0 - Nonrheumatic aortic (valve) stenosis Status: Acute Assessment and Plan: Patient with severe aortic stenosis. Plan for possible TAVR. Cardiology following and appreciate their input. (5) COPD (chronic obstructive pulmonary disease): Qualifiers: COPD type: COPD with acute exacerbation Qualified Code(s): J44.1 - Chronic obstructive pulmonary disease with (acute) exacerbation Code(s): J44.9 - Chronic obstructive pulmonary disease, unspecified Status: Acute Assessment and Plan: Patient was started on BiPAP with improvement. Not on steroids but no significant wheezing appreciated. Continue Albuterol MDI and Spiriva. Patient at baseline oxygen requirement. (6) Pleural effusion: Code(s): J90 - Pleural effusion, not elsewhere classified Status: Acute Assessment and Plan: Imaging showing bilateral pleural effusions right greater than left. Hold on thoracentesis this admisison since on Xarelto and having ongoing bacteremia. (7) Elevated troponin: Code(s): R79.89 - Other specified abnormal findings of blood chemistry Status: Acute Assessment and Plan: Troponin normal on admission but climbed to 0.16 before trending back downward. EKG showing delayed transition with sinus tachycardia. Elevated Trop most likely related to above. Echo showing no wall motion abnormalities. (8) Paroxysmal atrial fibrillation: Code(s): I48.0 - Paroxysmal atrial fibrillation Status: Acute Assessment and Plan: Telemetry reviewed. No evidence of recurrent paroxysmal AFib. Continue flecainide. Continue Xarelto. (9) Dementia: Code(s): F03.90 - Unspecified dementia without behavioral disturbance Status: Acute Assessment and Plan: Patient alert and orient x4. He may have mild dementia. Will continue Aricept. (10) Obstructive sleep apnea: Code(s): G47.33 - Obstructive sleep apnea (adult) (pediatric) Status: Acute Assessment and Plan: As above. Encourage compliance. Subjective Date/time seen: 03/31/20 16:56 Interval history: 84yo
[2020-03-31] MEDS: LIDOCAINE 5% PATCH 1 PATCH TRANSDERM (21:26)
[2020-03-31] MEDS: DONEPEZIL HCL 10 MG TABLET PO (21:26)
[2020-03-31] MEDS: traZODone HCL 50 MG TABLET 200 MG PO (21:26)
--- NOTE | 2020-03-31 21:52 | PC.NURSE ---
This patient, Jm Wheeler, was transferred to [facility] on 03/31/20 at 2200. Personal belongings sent with patient. Belongings list checked and signed with receiving [ ]. Report given to NIYA MAY [ ]. Appropriate documentation sent with patient. NOTIFIED OF TRANSFER .
[2020-04-01] VITALS (12 sets, daily range): BP systolic 104–134; BP diastolic 50–80; PULSE 69–90; RESP 16–20; TEMP 36.6–37.2; O2SAT 89–97
[2020-04-01 06:32] LABS: Basophils Percent Auto 0.5 % (0.2-1.2); Eosinophils Absolute Auto 0.3 K/mm3 (0-0.3); Eosinophils Percent Auto 4.5 % (0-4.4); Hematocrit 38.4 % (42.0-52.0); Hemoglobin 11.1 g/dL (14.0-18.0); Immature Granulocyte Absolute 0.03 K/mm3 (0.00-0.031); Immature Granulocyte Percent A 0.5 % (0-0.5); Lymphocytes Absolute Auto 0.89 K/mm3 (0.9-3.2); Lymphocytes Percent Auto 14.9 % (18.3-44.2); Mean Corpuscular HGB Conc 28.9 g/dl (32-36); Mean Corpuscular Hemoglobin 26.5 pg (26-34); Mean Corpuscular Volume 91.6 fl (80-100); Mean Platelet Volume 10.7 fl (7.4-10.4); Monocytes Absolute Auto 0.5 K/mm3 (0.1-0.6); Monocytes Percent Auto 8.5 % (2.6-8.5); Neutrophils Absolute Auto 4.3 K/mm3 (1.3-6.7); Neutrophils Percent Auto 71.1 % (45.5-73.1); Platelet Count Result 225 k/mm3 (150-375); Red Blood Count 4.19 M/mm3 (4.6-6.20); Red Cell Distribution Width 14.9 % (11.5-14.5)
[2020-04-01 06:54] LABS: Albumin Level 3.5 g/dL (3.5-5.1); Anion Gap 9.1 mmol/L (7-16); Blood Urea Nitrogen 17 mg/dL (9-20); CRP 0.9 mg/dL (<1.0); Calcium 8.9 mg/dL (8.4-10.2); Carbon Dioxide 35 mmol/L (22-30); Chloride 95 mmol/L (98-107); Estimated CRCL calculation 79 ml/min; Estimated Glomerular Filt Rate > 60; Glucose 122 mg/dL (75-110); Magnesium 2.2 mg/dL (1.6-2.3); Potassium 4.1 mmol/L (3.4-5.0); Sodium 135 mmol/L (137-145)
--- NOTE | 2020-04-01 08:08 | WPDINFPN2 ---
Progress Note: A&P Assessment and Plan (1) Bacteremia: Code(s): R78.81 - Bacteremia Status: Acute Assessment and Plan: 1. CNSS bacteremia, very likely contaminant 2. Severe 3. L TKA 4. CHF 5. COPD REC Further BCs pending. No further Vanc at present. If new + BCs, however, would benefit from TTE or MYLA (Dr. Raphael's choice) to investigate for endocarditis Subjective Date/time seen: 04/01/20 08:08 Objective Data Vital Signs Vital Signs: Vital Signs - 24 hr 03/31/20 08:12 03/31/20 08:35 03/31/20 10:00 Temperature Pulse Rate 66 75 Respiratory Rate Blood Pressure Pulse Oximetry 93 03/31/20 12:00 03/31/20 13:20 03/31/20 14:00 Temperature 36.8 C Pulse Rate 62 73 74 Respiratory Rate 24 H Blood Pressure 109/47 L Pulse Oximetry 94 03/31/20 16:00 03/31/20 16:16 03/31/20 18:00 Temperature 37.1 C Pulse Rate 76 75 75 Respiratory Rate 20 Blood Pressure 115/44 L Pulse Oximetry 93 03/31/20 20:00 03/31/20 21:50 03/31/20 22:03 Temperature 37.1 C 37.1 C Pulse Rate 76 70 72 Respiratory Rate 18 20 Blood Pressure 116/49 L 124/60 Pulse Oximetry 94 94 04/01/20 00:00 04/01/20 04:00 04/01/20 06:00 Temperature 37.2 C Pulse Rate 75 69 69 Respiratory Rate 20 Blood Pressure 126/50 L Pulse Oximetry 91 Intake/Output Intake/Output: Intake & Output 03/29/20 03/30/20 03/31/20 04/01/20 23:59 23:59 23:59 23:59 Intake Total 600 2670 2666 50 Output Total 960 3000 2100 600 Balance -360 -330 566 -550 Meds/Results Medications: Active Medications Generic Name Dose Route Start Last Admin Trade Name Freq PRN Reason Stop Dose Admin Acetaminophen/Codeine Phosphate 1 tab 03/29/20 00:58 Tylenol #3 PO Q6H PRN Pain Rated 7-10 Albuterol 2 puff 03/29/20 08:00 03/31/20 20:00 Proventil Hfa INHALATION Not Given QIDRT YINKA Donepezil HCl 10 mg 03/29/20 21:00 03/31/20 21:26 Aricept PO 10 mg HS [facility] Administration Finasteride 5 mg 03/29/20 09:00 03/31/20 08:36 Proscar PO 5 mg DAILY YINKA Administration Flecainide Acetate 100 mg 03/29/20 09:00 03/31/20 16:16 Tambocor PO 100 mg BID YINKA Administration Furosemide 40 mg 03/31/20 09:00 03/31/20 08:35 Lasix Tablet PO 40 mg DAILY YINKA Administration Lidocaine 1 patch 03/29/20 00:05 03/31/20 21:26 Lidoderm TRANSDERM 1 patch HS [facility] Administration Oxybutynin Chloride 5 mg 03/29/20 09:00 03/31/20 08:36 Ditropan Xl PO 5 mg QAM YINKA Administration Potassium Chloride 20 meq 03/29/20 08:00 03/31/20 08:34 Kcl Tablet PO 20 meq DAILY@0800 YINKA Administration Pravastatin Sodium 80 mg 03/29/20 09:00 03/31/20 08:36 Pravastatin Sodium PO 80 mg DAILY YINKA Administration Rivaroxaban 20 mg 03/29/20 17:00 03/31/20 16:17 Xarelto PO 20 mg DAILY@1700 [facility] Administration Tiotropium [place] 1 cap 03/29/20 09:00 03/31/20 08:11 Spiriva INHALATION 1 cap QAM YINKA Administration Trazodone HCl 200 mg 03/29/20 21:00 03/31/20 21:26 Desyrel PO 200 mg HS YINKA Administration Radiology Results: ITS Impressions Chest/Abdomen/Pelvis CT 03/28/20 15:49 IMPRESSION: Bilateral pleural effusions, larger on the right, with associated middle and right greater than left lower lobe atelectasis Moderate emphysematous changes. Extensive atherosclerosis including coronary arteries, thoracic and abdominal aortic, great vessels, iliac and femoral arteries Scarring and atrophy of the right kidney; nonobstructive right nephrolithiasis Diverticulosis of the colon; no CT evidence of diverticulitis Chest X-Ray 03/31/20 11:20 IMPRESSION: Bilateral pleural effusions, right larger than left and bilateral lower lung infiltrate and/or atelectasis, increased on the left since 03/28/2020 Labs Labs: Laboratory Results - last 24 hr 04/01/20 06:05 Sodium 135 L Potassium 4.1 Chloride
[2020-04-01] MEDS: FINASTERIDE 5 MG TABLET PO (08:25)
[2020-04-01] MEDS: FUROSEMIDE 40 MG TABLET PO (08:26)
[2020-04-01] MEDS: POTASSIUM CHLORIDE 20 MEQ TABLET.ER PO (08:27)
[2020-04-01] MEDS: FLECAINIDE ACETATE 100 MG TABLET PO ×2 (08:27→16:22)
[2020-04-01] MEDS: PRAVASTATIN SODIUM 20 MG TABLET 80 MG PO (08:28)
[2020-04-01] MEDS: ALBUTEROL SULFATE (*SP) AEROSOL 1 PUFF 2 PUFF INHALATION ×4 (09:02→19:33)
--- NOTE | 2020-04-01 11:19 | PM.PNCARD ---
Progress Note: A&P Additional Plan 84-year-old man with a history of atrial fibrillation maintaining sinus rhythm on flecainide. Patient presents with dyspnea which is multifactorial but undoubtedly in part related to his critical aortic valve stenosis. This was discussed in detail with the patient by Dr. Raphael over the weekend. He understands the need for further evaluation with right and left heart catheterization followed by consultation with valve team physicians. The patient would like all of this workup including the catheterization to occur at [facility] which we will be happy to arrange following this discharge. Colby Howe MD [facility] Subjective Date/time seen: 04/01/20 11:19 Interval history: Follow-up for shortness of breath, aortic stenosis The patient is relatively comfortable this morning does not appear to be dyspneic at all and states that his breathing is getting better day by day. Detailed discussion with the patient about his aortic valve disease and the plans to evaluate him as a candidate for aortic valve replacement. It is his preference to have the rest of this valvular heart disease workup done at [facility] since that is where he will have to go to see the says physicians in the valve team Review of Systems Constitutional: Constitutional: Reports fatigue Eyes: Eyes: Reports no additional eye complaints ENT: Reports system reviewed and no additional complaints, except as documented Cardiovascular: Cardiovascular: Reports as per HPI Respiratory: Respiratory: Reports as per HPI Gastrointestinal: Gastrointestinal: Reports no additional gastrointestinal complaints Musculoskeletal: Musculoskeletal: Reports no additional musculoskeletal complaints Integumentary/Breasts: Skin/Breast: Reports system reviewed and no additional complaints, except as docu Neurologic: Reports system reviewed and no additional complaints, except as documented Psychiatric: Psychiatric: Reports no additional psychiatric complaints Exam Const: General: comfortable and no acute distress HENMT: Mouth: Yes moist mucous membranes Eyes: Sclera: sclerae normal Pupils: Equal, round and reactive pupils present Neck: Neck: no JVD Thyroid: thyroid normal Other: transmitted systolic murmur bilaterally. Resp: Effort & Inspection: normal respiratory effort Cardio: Rate: regular rate Rhythm: regular rhythm Other: Grade 3/6 crescendo decrescendo murmur late peaking audible at the base radiating to the carotids. GI: Auscultation: normal bowel sounds Skin: General skin exam: normal color Neuro: Cognition (Neuro): normal cognition Extrem: General: normal to inspection Objective Data Vital Signs Vital Signs: Vital Signs - 24 hr 03/31/20 12:00 03/31/20 13:20 03/31/20 14:00 Temperature 36.8 C Pulse Rate 62 73 74 Respiratory Rate 24 H Blood Pressure 109/47 L Pulse Oximetry 94 03/31/20 16:00 03/31/20 16:16 03/31/20 18:00 Temperature 37.1 C Pulse Rate 76 75 75 Respiratory Rate 20 Blood Pressure 115/44 L Pulse Oximetry 93 03/31/20 20:00 03/31/20 21:50 03/31/20 22:03 Temperature 37.1 C 37.1 C Pulse Rate 76 70 72 Respiratory Rate 18 20 Blood Pressure 116/49 L 124/60 Pulse Oximetry 94 94 04/01/20 00:00 04/01/20 04:00 04/01/20 06:00 Temperature 37.2 C Pulse Rate 75 69 69 Respiratory Rate 20 Blood Pressure 126/50 L Pulse Oximetry 91 04/01/20 08:23 04/01/20 08:27 Temperature Pulse Rate 75 75 Respiratory Rate 16 Blood Pressure 104/56 L Pulse Oximetry 91 Intake/Output Intake/Output: Intake & Output 03/29/20 03/30/20 03/31/20 04/01/20 23:59 23:59 23:59 23:59 Intake Total 600 0400 2666 290 Output Total 960 3833 2977 600 [id number] -434 -347 566 -310 Meds/Results Medications: Active Medications Generic Name Dose Route Start Last Admin Trade Name Freq PRN Reason Stop Dose Admin Acetaminophen/Codeine Phosphate 1 tab
--- NOTE | 2020-04-01 13:23 | CONS_ITS ---
DATE OF CONSULTATION: 04/01/2020 REASON FOR CONSULTATION: Bacteremia. HISTORY OF PRESENT ILLNESS: Mr. Wheeler is an 84-year-old male with COPD and chronic heart failure. He is on home O2 between 2 and 2.5 L. He is on no recent antibiotics for any purpose. He has had no pre-existing fever, chills, or sweats. He has had a left total knee arthroplasty performed some 10 years ago, which has been functioning well and no postoperative infections that he can recall. He never required long-term antibiotics for bloodstream infection and no systemic immunosuppressants. He was admitted through the emergency room on March 28 with several weeks of shortness of breath without cough, sputum production, or chest pain. His also noted lower extremity swelling and distention. He has had a superficial skin injury over the left upper extremity. Otherwise, no ulcerations, no skin trauma, and no operations in the last 3 months. HABITS: Ex-smoker 8 years ago. No alcohol. PRESENT MEDICATIONS: Previously on ceftriaxone and vancomycin, now both discontinued as of yesterday. Other medications are reviewed. No immunosuppressants. ALLERGIES: NONE KNOWN. PAST MEDICAL HISTORY: In addition to the above, prostate surgery, SAMMY, morbid obesity, macular degeneration, kidney stones, hyperlipidemia, diastolic dysfunction, severe 0.6 cm, GERD, depression, anxiety, previous stroke, dementia, prior C diff in November 2014, BPH, and AF. REVIEW OF SYSTEMS: Urinary incontinence, chest pain, orthopnea, easy bruisability. A 14-point review otherwise negative. FAMILY HISTORY: Not pertinent to his present illness. SOCIAL HISTORY: Customarily sees Dr. Oliveira. He lives locally. . 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 PHYSICAL EXAMINATION: GENERAL: This is a chronically ill-appearing male, his actual age, mild respiratory distress on 2 L. VITAL SIGNS: Since arrival, he has been afebrile. 126/50, 69, 20, 91%. SKIN: No generalized rash. Multiple ecchymoses. NODES: There is no cervical adenopathy. EENT: The conjunctivae are pale. No petechiae. Pupils equal, round, minimally reactive. He has poor dentition. NECK: No stridor, thyromegaly, meningismus, mass. LUNGS: Clear to auscultation with diminished breath sounds. Clear to percussion. CARDIAC: Soft S1, S2. No murmurs or gallops. ABDOMEN: Nontender. Soft. No organomegaly. No masses. Protuberant and obese. EXTREMITIES: 2+ distal leg edema. LABORATORY DATA: Blood cultures March 28, 10/08 sets, coagulase-negative staph. Blood cultures repeated last evening, no growth after a very short incubation. White count consistently normal. Hemoglobin 11.1, which is down slightly. Platelets are 225. His blood gases, 7.40, 43, 90, 26 on BiPAP. He has mild hyponatremia and hypochloremia. CO2 is elevated at 35. His CRP is 0.9, albumin 3.5. His urinalysis is not suggestive of infection. RADIOLOGY: Chest x-ray from admission, left lower lobe airspace disease. Cardiomegaly, interstitial edema. Repeat chest x-ray: Slightly worse lung infiltrates and atelectasis. ASSESSMENT: 1. Abnormal chest x-ray due to heart failure and atelectasis. No pneumonia. 2. Staphylococcus bacteremia. I strongly suspect contaminated in nature, despite both sets being positive. 3. Aortic valve stenosis, severe. 4. Left total knee arthroplasty, not infected on exam nor by symptoms. RECOMMENDATIONS: 1. No further antibiotics. 2. Follow up on repeat blood cultures. 3. If these are also positive, thoracic or esophageal echocardiogram would be in order. Thank you very much for asking me see him. JUAN GARCIA M.D. BUMPER OPERATOR D
--- NOTE | 2020-04-01 15:28 | PM.IMPN ---
Progress Note: A&P Assessment and Plan (1) Acute and chronic respiratory failure with hypoxia: Code(s): J96.21 - Acute and chronic respiratory failure with hypoxia Status: Acute Assessment and Plan: Patient developed respiratory distress at home prompting EMS call. ABG essentially normal on BiPAP. Patient started on BiPAP and did well. He wore BiPAP overnight but now refusing to wear this. Suspect acute respiratory failure multifactorial with CHF/COPD/untreated SAMMY/severe . Patient currently on 2 L nasal cannula which is his baseline. Encourage BiPAP at night. TRC consult. COntinue PT/OT. (2) Acute exacerbation of CHF (congestive heart failure): Qualifiers: Heart failure type: unspecified Qualified Code(s): I50.9 - Heart failure, unspecified Code(s): I50.9 - Heart failure, unspecified Status: Acute Assessment and Plan: BNP [address] showing bilateral pleural effusions R>L with associated right middle and bilateral lower lobe atelectasis. Treated with Lasix IV but has transitioned back to oral. Echo showing EF 60-65% with grade I DD and severe (HUGO 0.6cm2). COVID negative. Cardiology following. (3) Bacteremia: Code(s): R78.81 - Bacteremia Status: Acute Assessment and Plan: BCx collected on admission growing gram positive cocci in clusters in both aerobic bottles. WBC essentially normal and no fevers. Consider source from the skin or from his heart valve. UA noted and doubt urinary source. Consider also PNA as well. Rocephin and vancomycin started. BCx have returned Coag Negative Staph in 2of2 bottles. Rocephn stopped 03/31 and blood cultures repeated. ID consulted and Vanco stopped today. Repeat BCx pending. Patient may need MYLA if repeat BCx positive. Appreciate ID input. (4) Severe aortic stenosis: Code(s): I35.0 - Nonrheumatic aortic (valve) stenosis Status: Acute Assessment and Plan: Patient with severe aortic stenosis. Plan for possible TAVR. Cardiology following and appreciate their input. (5) COPD (chronic obstructive pulmonary disease): Qualifiers: COPD type: COPD with acute exacerbation Qualified Code(s): J44.1 - Chronic obstructive pulmonary disease with (acute) exacerbation Code(s): J44.9 - Chronic obstructive pulmonary disease, unspecified Status: Acute Assessment and Plan: Patient was started on BiPAP with improvement. Not on steroids but no significant wheezing appreciated. Continue Albuterol MDI and Spiriva. Patient at baseline oxygen requirement. (6) Pleural effusion: Code(s): J90 - Pleural effusion, not elsewhere classified Status: Acute Assessment and Plan: Imaging showing bilateral pleural effusions right greater than left. Hold on thoracentesis this admission since on Xarelto and having bacteremia. (7) Elevated troponin: Code(s): R79.89 - Other specified abnormal findings of blood chemistry Status: Acute Assessment and Plan: Troponin normal on admission but climbed to 0.16 before trending back downward. EKG showing delayed transition with sinus tachycardia. Elevated Trop most likely related to above. Echo showing no wall motion abnormalities. (8) Paroxysmal atrial fibrillation: Code(s): I48.0 - Paroxysmal atrial fibrillation Status: Acute Assessment and Plan: Telemetry reviewed. No evidence of recurrent paroxysmal AFib. Continue flecainide. Continue Xarelto. Stop tele. (9) Dementia: Code(s): F03.90 - Unspecified dementia without behavioral disturbance Status: Acute Assessment and Plan: Patient alert and orient x4. He may have mild dementia. Will continue Aricept. (10) Obstructive sleep apnea: Code(s): G47.33 - Obstructive sleep apnea (adult) (pediatric) Status: Acute Assessment and Plan: As above. Encourage compl
[2020-04-01] MEDS: RIVAROXABAN 20 MG TABLET PO (16:22)
[2020-04-01] MEDS: traZODone HCL 50 MG TABLET 200 MG PO (21:52)
[2020-04-01] MEDS: DONEPEZIL HCL 10 MG TABLET PO (21:52)
[2020-04-01] MEDS: LIDOCAINE 5% PATCH 1 PATCH TRANSDERM (21:53)
[2020-04-02] VITALS (10 sets, daily range): BP systolic 112–141; BP diastolic 49–64; PULSE 71–93; RESP 16–28; TEMP 36.7–37.2; O2SAT 93–98
--- NOTE | 2020-04-02 04:00 | PC.NURSE ---
respiratory therapy called to bedside to put pt on bipap, per his request. pt refused earlier in the evening.
[2020-04-02] MEDS: FINASTERIDE 5 MG TABLET PO (09:11)
[2020-04-02] MEDS: POTASSIUM CHLORIDE 20 MEQ TABLET.ER PO (09:11)
[2020-04-02] MEDS: FUROSEMIDE 40 MG TABLET PO (09:11)
[2020-04-02] MEDS: FLECAINIDE ACETATE 100 MG TABLET PO ×2 (09:12→16:34)
[2020-04-02] MEDS: PRAVASTATIN SODIUM 20 MG TABLET 80 MG PO (09:12)
[2020-04-02] MEDS: ALBUTEROL SULFATE (*SP) AEROSOL 1 PUFF 2 PUFF INHALATION ×4 (09:43→19:43)
--- NOTE | 2020-04-02 13:26 | WPDINFPN2 ---
Progress Note: A&P Assessment and Plan (1) Bacteremia: Code(s): R78.81 - Bacteremia Status: Acute Assessment and Plan: 1. CNSS bacteremia, very likely contaminant 2. Severe 3. L TKA 4. CHF 5. COPD REC Further BCs ngsf. No further Vanc at present. If new + BCs, however, would benefit from TTE or MYLA (Dr. Raphael's choice) to investigate for endocarditis Subjective Date/time seen: 04/02/20 13:26 Interval history: no complaints Exam Narrative: Exam Narrative: afebrile Const: General: no acute distress Cardio: Rate: regular rate Rhythm: regular rhythm Heart sounds: no gallops and no murmurs Skin: Other: ecchymoses Objective Data Vital Signs Vital Signs: Vital Signs - 24 hr 04/01/20 14:00 04/01/20 16:22 04/01/20 19:33 Temperature 37.2 C Pulse Rate 81 81 90 Respiratory Rate 16 20 Blood Pressure 116/50 L Pulse Oximetry 97 89 L 04/01/20 20:00 04/01/20 22:00 04/02/20 04:21 Temperature 36.6 C Pulse Rate 87 87 93 Respiratory Rate 16 16 28 H Blood Pressure 134/80 Pulse Oximetry 92 92 93 04/02/20 06:00 04/02/20 08:00 04/02/20 09:12 Temperature 37.2 C Pulse Rate 93 93 80 Respiratory Rate 16 16 Blood Pressure 112/64 Pulse Oximetry 93 93 04/02/20 09:48 Temperature Pulse Rate 93 Respiratory Rate Blood Pressure Pulse Oximetry Intake/Output Intake/Output: Intake & Output 03/30/20 03/31/20 04/01/20 04/02/20 23:59 23:59 23:59 23:59 Intake Total 2670 2666 1310 580 Output Total 3000 2100 2200 924 Balance -330 562 -890 -344 Meds/Results Medications: Active Medications Generic Name Dose Route Start Last Admin Trade Name Freq PRN Reason Stop Dose Admin Acetaminophen/Codeine Phosphate 1 tab 03/29/20 00:58 Tylenol #3 PO Q6H PRN Pain Rated 7-10 Albuterol 2 puff 03/29/20 08:00 04/02/20 13:00 Proventil Hfa INHALATION 2 puff QIDRT YINKA Administration Donepezil HCl 10 mg 03/29/20 21:00 04/01/20 21:52 Aricept PO 10 mg HS YINKA Administration Finasteride 5 mg 03/29/20 09:00 04/02/20 09:11 Proscar PO 5 mg DAILY YINKA Administration Flecainide Acetate 100 mg 03/29/20 09:00 04/02/20 09:12 Tambocor PO 100 mg BID YINKA Administration Furosemide 40 mg 03/31/20 09:00 04/02/20 09:11 Lasix Tablet PO 40 mg DAILY YINKA Administration Lidocaine 1 patch 03/29/20 00:05 04/01/20 21:53 Lidoderm TRANSDERM 1 patch HS YINKA Administration Oxybutynin Chloride 5 mg 03/29/20 09:00 04/02/20 09:12 Ditropan Xl PO 5 mg QAM YINKA Administration Potassium Chloride 20 meq 03/29/20 08:00 04/02/20 09:11 Kcl Tablet PO 20 meq DAILY@0800 YINKA Administration Pravastatin Sodium 80 mg 03/29/20 09:00 04/02/20 09:12 Pravastatin Sodium PO 80 mg DAILY YINKA Administration Rivaroxaban 20 mg 03/29/20 17:00 04/01/20 16:22 Xarelto PO 20 mg DAILY@1700 YINKA Administration Tiotropium [place] 1 cap 03/29/20 09:00 04/02/20 09:44 Spiriva INHALATION 1 cap QAM YINKA Administration Trazodone HCl 200 mg 03/29/20 21:00 04/01/20 21:52 Desyrel PO 200 mg HS YINKA Administration Radiology Results: ITS Impressions Chest/Abdomen/Pelvis CT 03/28/20 15:49 IMPRESSION: Bilateral pleural effusions, larger on the right, with associated middle and right greater than left lower lobe atelectasis Moderate emphysematous changes. Extensive atherosclerosis including coronary arteries, thoracic and abdominal aortic, great vessels, iliac and femoral arteries Scarring and atrophy of the right kidney; nonobstructive right nephrolithiasis Diverticulosis of the colon; no CT evidence of diverticulitis Chest X-Ray 03/31/20 11:20 IMPRESSION: Bilateral pleural effusions, right larger than left and bilateral lower lung infiltrate and/or atelectasis, increased on the left since 03/28/2020
--- NOTE | 2020-04-02 14:44 | PM.PNCARD ---
Progress Note: A&P Assessment and Plan (1) Severe aortic stenosis: Code(s): I35.0 - Nonrheumatic aortic (valve) stenosis Status: Acute Assessment and Plan: Severe/ critical aortic stenosis peak velocity 4.5 m/sec and mean gradient 48 mm Hg with HUGO calculated 0.6cm2. 2015 2D echocardiogram aortic valve area 1.1 cm2. Outpatient TAVR workup. Continue statin given history of CVA. (2) Acute and chronic respiratory failure with hypoxia: Code(s): J96.21 - Acute and chronic respiratory failure with hypoxia Status: Acute Assessment and Plan: Defer to primary service. (3) Acute exacerbation of CHF (congestive heart failure): Qualifiers: Heart failure type: unspecified Qualified Code(s): I50.9 - Heart failure, unspecified Code(s): I50.9 - Heart failure, unspecified Status: Acute Assessment and Plan: Improved with diuresis. Continue Lasix 40 mg p.o. daily. Avoid hypotension particularly in light of very severe/ critical aortic stenosis. Hemodynamically stable and much improved. Troponin elevation secondary to acute respiratory failure, CHF with underlying critical aortic stenosis. Not acute coronary syndrome and/or plaque rupture. Cannot exclude underlying CAD. Ischemic workup in association with TAVR consideration scheduled for 04/12/2020 at [facility] (4) Pleural effusion: Code(s): J90 - Pleural effusion, not elsewhere classified Status: Acute Assessment and Plan: Defer to primary service. (5) COPD (chronic obstructive pulmonary disease): Qualifiers: COPD type: COPD with acute exacerbation Qualified Code(s): J44.1 - Chronic obstructive pulmonary disease with (acute) exacerbation Code(s): J44.9 - Chronic obstructive pulmonary disease, unspecified Status: Acute Assessment and Plan: Defer to primary service (6) Paroxysmal atrial fibrillation: Code(s): I48.0 - Paroxysmal atrial fibrillation Status: Acute Assessment and Plan: Maintaining sinus rhythm. Renal function stable as are electrolytes. Continue flecainide for the time being as this appears to be working well for him. Monitor renal function electrolytes closely. 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 Monitor for bleeding. Additional Plan Plan discussed with Dr Raphael 1450 04/02/2020 Subjective Date/time seen: 04/02/20 14:44 Interval history: Follow up for: severe aortic stenosis Date of service: 04/02/2020 Subjective: No chest discomfort, lightheadedness or palpitations. Shortness of breath improved Review of Systems Review of Systems: All systems reviewed & are unremarkable except as noted in HPI and below Constitutional: Constitutional: Reports as per HPI, Reports no additional constitutional complaints, Denies difficulty sleeping, Reports fatigue and Reports weakness Eyes: Eyes: Reports as per HPI and Reports no additional eye complaints ENT: Reports system reviewed and no additional complaints, except as documented and Reports as per HPI Cardiovascular: Cardiovascular: Reports as per HPI, Reports no additional cardiovascular complaints, Denies diaphoresis, Reports pedal edema, Reports leg edema, Denies lightheadedness, Denies palpitations and Reports dyspnea on exertion Respiratory: Respiratory: Reports as per HPI, Reports no additional respiratory complaints, Reports cough, Reports dyspnea on exertion and Reports wheezing Gastrointestinal: Gastrointestinal: Reports as per HPI, Reports no additional gastrointestinal complaints, Denies abdominal pain, Denies melena, Reports bloating, Denies hematochezia, Denies diarr
[2020-04-02] MEDS: RIVAROXABAN 20 MG TABLET PO (16:34)
--- NOTE | 2020-04-02 17:19 | PM.IMPN ---
Progress Note: A&P Assessment and Plan (1) Acute and chronic respiratory failure with hypoxia: Code(s): J96.21 - Acute and chronic respiratory failure with hypoxia Status: Acute Assessment and Plan: Patient developed respiratory distress at home prompting EMS call. ABG essentially normal on BiPAP. Patient started on BiPAP and did well. He wore BiPAP overnight but now refusing to wear this. Suspect acute respiratory failure multifactorial with CHF/COPD/untreated SAMMY/severe . Patient currently on 2 L nasal cannula which is his baseline. Encourage pt refusing rehab so d/c 04/03 (2) Acute exacerbation of CHF (congestive heart failure): Qualifiers: Heart failure type: unspecified Qualified Code(s): I50.9 - Heart failure, unspecified Code(s): I50.9 - Heart failure, unspecified Status: Acute Assessment and Plan: BNP [address] showing bilateral pleural effusions R>L with associated right middle and bilateral lower lobe atelectasis. Treated with Lasix IV but has transitioned back to oral. Echo showing EF 60-65% with grade I DD and severe (HUGO 0.6cm2). COVID negative. Cardiology following. (3) Bacteremia: Code(s): R78.81 - Bacteremia Status: Acute Assessment and Plan: BCx collected on admission growing gram positive cocci in clusters in both aerobic bottles. WBC essentially normal and no fevers. Consider source from the skin or from his heart valve. UA noted and doubt urinary source. Consider also PNA as well. Rocephin and vancomycin started. BCx have returned Coag Negative Staph in 2of2 bottles. Rocephn stopped 03/31 and blood cultures repeated. ID consulted and Vanco stopped today. Repeat BCx repeat neg too . . Appreciate ID input. (4) Severe aortic stenosis: Code(s): I35.0 - Nonrheumatic aortic (valve) stenosis Status: Acute Assessment and Plan: Patient with severe aortic stenosis. Plan for possible TAVR. Cardiology following and with have cath next week (5) COPD (chronic obstructive pulmonary disease): Qualifiers: COPD type: COPD with acute exacerbation Qualified Code(s): J44.1 - Chronic obstructive pulmonary disease with (acute) exacerbation Code(s): J44.9 - Chronic obstructive pulmonary disease, unspecified Status: Acute Assessment and Plan: Patient was started on BiPAP with improvement. Not on steroids but no significant wheezing appreciated. Continue Albuterol MDI and Spiriva. Patient at baseline oxygen requirement. (6) Pleural effusion: Code(s): J90 - Pleural effusion, not elsewhere classified Status: Acute Assessment and Plan: Imaging showing bilateral pleural effusions right greater than left. Hold on thoracentesis this admission since on Xarelto and improved with lasix (7) Elevated troponin: Code(s): R79.89 - Other specified abnormal findings of blood chemistry Status: Acute Assessment and Plan: Troponin normal on admission but climbed to 0.16 before trending back downward. EKG showing delayed transition with sinus tachycardia. Elevated Trop most likely related to above. Echo showing no wall motion abnormalities. (8) Paroxysmal atrial fibrillation: Code(s): I48.0 - Paroxysmal atrial fibrillation Status: Acute Assessment and Plan: Telemetry reviewed. No evidence of recurrent paroxysmal AFib. Continue flecainide. Continue Xarelto. (9) Dementia: Code(s): F03.90 - Unspecified dementia without behavioral disturbance Status: Acute Assessment and Plan: Patient alert and orient x4. He may have mild dementia. Will continue Aricept. (10) Obstructive sleep apnea: Code(s): G47.33 - Obstructive sleep apnea (adult) (pediatric) Status: Acute Assessment and Plan: As above. Encourage compliance. Subjective Date/time seen: 04/02/20 17:19 In
--- NOTE | 2020-04-02 18:55 | PC.NURSE ---
Méndez catheter has been removed about 1300 today. Patient has had 3 unmeasured voids. patient stuggles with using urinal at bedside.
[2020-04-02] MEDS: DONEPEZIL HCL 10 MG TABLET PO (21:51)
[2020-04-02] MEDS: LIDOCAINE 5% PATCH 1 PATCH TRANSDERM (21:51)
[2020-04-02] MEDS: traZODone HCL 50 MG TABLET 200 MG PO (21:51)
[2020-04-03 06:00] VITALS: BP 105/44; PULSE 83; RESP 20; TEMP 36.5; O2SAT 91
[2020-04-03 06:33] LABS: Anion Gap 11.8 mmol/L (7-16); Blood Urea Nitrogen 18 mg/dL (9-20); Calcium 9.1 mg/dL (8.4-10.2); Carbon Dioxide 33 mmol/L (22-30); Chloride 96 mmol/L (98-107); Estimated CRCL calculation 102 ml/min; Estimated Glomerular Filt Rate > 60; Glucose 122 mg/dL (75-110); Potassium 4.8 mmol/L (3.4-5.0); Sodium 136 mmol/L (137-145)
[2020-04-03] MEDS: ALBUTEROL SULFATE (*SP) AEROSOL 1 PUFF 2 PUFF INHALATION ×2 (08:34→12:31)
[2020-04-03 09:11] VITALS: PULSE 72
[2020-04-03] MEDS: FUROSEMIDE 40 MG TABLET PO (09:11)
[2020-04-03] MEDS: FINASTERIDE 5 MG TABLET PO (09:11)
[2020-04-03] MEDS: FLECAINIDE ACETATE 100 MG TABLET PO (09:11)
[2020-04-03] MEDS: PRAVASTATIN SODIUM 20 MG TABLET 80 MG PO (09:11)
[2020-04-03] MEDS: POTASSIUM CHLORIDE 20 MEQ TABLET.ER PO (09:12)
[2020-04-03 14:41] LABS: SARS-CoV-2 RNA PCR Negative
--- NOTE | 2020-04-03 18:14 | PM.DS ---
DS: Admitting Diagnosis Admitting Diagnosis Admitting Diagnosis: Heart failure, unspecified DS: Discharge Diagnosis Discharge Diagnosis (1) Acute and chronic respiratory failure with hypoxia: Code(s): J96.21 - Acute and chronic respiratory failure with hypoxia Status: Acute Assessment and Plan: Patient developed respiratory distress at home prompting EMS call. ABG essentially normal on BiPAP. Patient started on BiPAP and did well. He wore BiPAP overnight but now refusing to wear this. Suspect acute respiratory failure multifactorial with CHF/COPD/untreated SAMMY/severe . Patient currently on 2 L nasal cannula which is his baseline. and doing well. patient family were opposed to rehab and will be discharged with home health care (2) Acute exacerbation of CHF (congestive heart failure): Qualifiers: Heart failure type: unspecified Qualified Code(s): I50.9 - Heart failure, unspecified Code(s): I50.9 - Heart failure, unspecified Status: Acute Assessment and Plan: BNP [address] showing bilateral pleural effusions R>L with associated right middle and bilateral lower lobe atelectasis. Treated with Lasix IV but transitioned back to oral. Echo showing EF 60-65% with grade I DD and severe (HUGO 0.6cm2). COVID negative. Cardiology following and arranging for outpatient cardiac catheterization 04/12 to assess for valve replacement. (3) Bacteremia: Code(s): R78.81 - Bacteremia Status: Acute Assessment and Plan: BCx collected on admission growing gram positive cocci in clusters in both aerobic bottles. WBC essentially normal and no fevers. Consider source from the skin or from his heart valve. UA noted and doubt urinary source. Consider also PNA as well. Rocephin and vancomycin started. BCx returned Coag Negative Staph in 2of2 bottles. Rocephn stopped 03/31 and blood cultures repeated. ID consulted and Vanco stopped today. Repeat BCx repeat were no growth at 72 hours at discharge. ID felt was contaminant and (4) Severe aortic stenosis: Code(s): I35.0 - Nonrheumatic aortic (valve) stenosis Status: Acute Assessment and Plan: Patient with severe aortic stenosis. Plan for possible TAVR. Cardiology following and with have cath next week 04/12 (5) COPD (chronic obstructive pulmonary disease): Qualifiers: COPD type: COPD with acute exacerbation Qualified Code(s): J44.1 - Chronic obstructive pulmonary disease with (acute) exacerbation Code(s): J44.9 - Chronic obstructive pulmonary disease, unspecified Status: Acute Assessment and Plan: Patient was started on BiPAP with improvement. Not on steroids but no significant wheezing appreciated. Continue Albuterol MDI and Spiriva. Patient at baseline oxygen requirement. at the time of discharge (6) Pleural effusion: Code(s): J90 - Pleural effusion, not elsewhere classified Status: Acute Assessment and Plan: Imaging showing bilateral pleural effusions right greater than left. Held on thoracentesis this admission since on Xarelto and improved with lasix (7) Elevated troponin: Code(s): R79.89 - Other specified abnormal findings of blood chemistry Status: Acute Assessment and Plan: Troponin normal on admission but climbed to 0.16 before trending back downward. EKG showing delayed transition with sinus tachycardia. Elevated Trop most likely related to above. Echo showing no wall motion abnormalities. (8) Paroxysmal atrial fibrillation: Code(s): I48.0 - Paroxysmal atrial fibrillation Status: Acute Assessment and Plan: Telemetry reviewed. No evidence of recurrent paroxysmal AFib. Continue flecainide. Continue Xarelto. (9) Dementia: Code(s): F03.90 - Unspecified dementia without behavioral disturbance Status: Acute Assessment and Plan: Patient alert an
== END 2020-04-03 15:20 | disposition home or self-care (01) | DRG 306 ==
LOC: ANHED 17:47 → ANHICU 23:01 → ANHIMU 03-31 20:41 → ANH3MEDSUR 04-03 11:23 → ANHICU 04-04 13:17 → ANHIMU 04-04 13:17
PROVIDERS: Internal Medicine; Admitting Provider Internal Medicine; Emergency Provider Emergency Medicine; PCP Internal Medicine; Visit Provider Internal Medicine
DX: I35.0 Nonrheumatic aortic (valve) stenosis (principal); I50.33 Acute on chronic diastolic (congestive) heart failure; J96.21 Acute and chronic respiratory failure with hypoxia; J44.1 Chronic obstructive pulmonary disease with (acute) exacerbation; I48.20 Chronic atrial fibrillation, unspecified; J90 Pleural effusion, not elsewhere classified; J98.11 Atelectasis; Z11.59 Encounter for screening for other viral diseases; R79.89 Other specified abnormal findings of blood chemistry; I48.0 Paroxysmal atrial fibrillation; F03.90 Unspecified dementia, unspecified severity, without behavioral disturbance, psychotic disturbance, mood disturbance, and anxiety; G47.33 Obstructive sleep apnea (adult) (pediatric); N40.0 Benign prostatic hyperplasia without lower urinary tract symptoms; K21.9 Gastro-esophageal reflux disease without esophagitis; E78.5 Hyperlipidemia, unspecified; F41.8 Other specified anxiety disorders; H35.30 Unspecified macular degeneration; E66.01 Morbid (severe) obesity due to excess calories; Z96.652 Presence of left artificial knee joint; Z68.35 Body mass index [BMI] 35.0-35.9, adult; Z99.81 Dependence on supplemental oxygen; Z87.891 Personal history of nicotine dependence; Z86.73 Personal history of transient ischemic attack (TIA), and cerebral infarction without residual deficits; Z79.01 Long term (current) use of anticoagulants
CPT/HCPCS: 36415; 36600; 71045; 71046; 71260; 74177; 80048; 80053; 80069; 81001; 82805; 83036; 83605; 83735; 83880; 84100; 84484; 85025; 85027; 86140; 87040; 87077; 87186; 87635; 92610; 93005; 93306; 94002; 94003; 94640; 96365; 96375; 97110; 97116; 97161; 97165; 97530; 97535; 99285; A9270; C9803; J0456; J0696; J1940; J3370; Q9967; U0003

== ENCOUNTER 2020-04-16 11:20 | Inpatient (IN) | payer MEDICARE, SELFPAY ==
[2020-04-16] VITALS (13 sets, daily range): BP systolic 99–139; BP diastolic 52–70; PULSE 73–94; RESP 20–28; TEMP 36.4–36.8; O2SAT 89–95; BMI 36.3
--- NOTE | ~2020-04-16 | XR_ITS ---
EXAMINATION: XR chest 1V portable DATE: 04/16/2020 12:13 INDICATION: Cough. TECHNIQUE: A single frontal view of the chest was obtained. COMPARISON: Chest 2 views 03/31/2020, chest CT 03/28/2020 FINDINGS: There are moderate-sized right and small left pleural effusions. There is mild scarring at the lung apices. There are airspace opacities in the perihilar regions and at the lung bases. No pneu mothorax. The heart size is normal. IMPRESSION: 1. Worsened airspace opacities in the perihilar regions and at the lung bases, consistent with atelec tasis versus pulmonary edema versus pneumonia. 2. Stable moderate-sized right and small left pleural effusions. Reviewed, dictated and finalized at location B. IMPRESSION: 1. Worsened airspace opacities in the perihilar regions and at the lung bases, consistent with atelectasis versus pulmonary edema versus pneumonia. 2. Stable moderate-sized right and small left pleural effusions.
--- NOTE | ~2020-04-16 | US_ITS ---
EXAMINATION: US thoracentesis DATE: 04/25/2020 10:41 INDICATION: pleural effusion TECHNIQUE: The procedure and its risks, benefits, and alternatives were discussed with the patient. P otential risks discussed included bleeding, infection, and pneumothorax. The patient understood the r isks and agreed to proceed. The skin was prepped and draped in sterile fashion. 1% lidocaine was used for local anesthesia. Under ultrasound guidance, a 5 Fr catheter with trochar was advanced into the right pleural effusion. Fluid was aspirated. The catheter was removed, and a dressing was applied. Th ere were no immediate complications. FINDINGS: Ultrasound images demonstrate a right pleural effusion and the catheter within the fluid. IMPRESSION: 1. Successful ultrasound-guided thoracentesis yielding 650 mL of clear, saritha-colored fluid. Reviewed, dictated and finalized at location A. IMPRESSION: 1. Successful ultrasound-guided thoracentesis yielding 650 mL of clear, saritha- colored fluid.
--- NOTE | ~2020-04-16 | US_ITS ---
EXAMINATION: US thoracentesis DATE: 04/24/2020 14:36 INDICATION: pleural effusion TECHNIQUE: The procedure and its risks, benefits, and alternatives were discussed with the patient. P otential risks discussed included bleeding, infection, and pneumothorax. The patient understood the r isks and agreed to proceed. The skin was prepped and draped in sterile fashion. 1% lidocaine was used for local anesthesia. Under ultrasound guidance, a 5 Fr catheter with trochar was advanced into the right pleural effusion. Fluid was aspirated. The catheter was removed, and a dressing was applied. Th ere were no immediate complications. FINDINGS: Ultrasound images demonstrate a right pleural effusion and the catheter within the fluid. IMPRESSION: 1. Successful ultrasound-guided thoracentesis yielding 1000 mL of clear, saritha-colored fluid. Reviewed, dictated and finalized at location A. IMPRESSION: 1. Successful ultrasound-guided thoracentesis yielding 1000 mL of clear, saritha -colored fluid.
--- NOTE | ~2020-04-16 | XR_ITS ---
EXAMINATION: XR chest 1V portable DATE: 04/22/2020 04:53 INDICATION: Desaturating. TECHNIQUE: A single frontal view of the chest was obtained. COMPARISON: Chest single view 04/19/2020, chest CT 03/28/2020 FINDINGS: There are moderate-sized right and small left pleural effusions. Calcified right lung nodul es and calcified right hilar lymph nodes are consistent with old granulomatous disease. There is mild scarring at the lung apices. There are airspace opacities at the lung bases. No pneumothorax. The he art size is normal. IMPRESSION: 1. Stable moderate-sized right and small left pleural effusions. 2. Stable airspace opacities at the lung bases, consistent with atelectasis versus pneumonia. Reviewed, dictated and finalized at location A. IMPRESSION: 1. Stable moderate-sized right and small left pleural effusions. 2. Stable airspace opacities at the lung bases, consistent with atelectasis brigid bang pneumonia.
--- NOTE | ~2020-04-16 | XR_ITS ---
EXAMINATION: XR chest 1V portable DATE: 04/19/2020 06:07 INDICATION: Shortness of breath TECHNIQUE: frontal view of the chest was obtained. COMPARISON: Chest radiograph dated 04/16/2020 FINDINGS: Moderate-sized right and small left pleural effusions. Pleural parenchymal scarring at the apices. Di ffuse perihilar predominant interstitial and airspace opacities consistent with pulmonary edema. No p neumothorax. Heart size is normal. Dense mitral annular calcification. IMPRESSION: 1. Perihilar predominant diffuse interstitial and airspace opacities which could represent pulmonary edema and/or pneumonia. 2. Moderate-sized right and small left pleural effusions with basilar atelectasis and/or pneumonia. Reviewed, dictated and finalized at location A. IMPRESSION: 1. Perihilar predominant diffuse interstitial and airspace opacities which coul d represent pulmonary edema and/or pneumonia. 2. Moderate-sized right and small left pleural effusions with basilar atelectas is and/or pneumonia.
--- NOTE | ~2020-04-16 | XR_ITS ---
EXAMINATION: XR chest 1V EXAM DATE: 04/24/2020 14:19 INDICATION: Right pleural effusion. TECHNIQUE: Portable AP frontal chest x-ray was obtained. Comparison is made to prior examination from 04/06/2020. FINDINGS: Again there is moderate-sized right pleural effusion with adjacent right lower lobe and nani gular compressive atelectasis. Appearance is not significantly changed compared to prior study. Small left pleural effusion. Left lung is clear. There is no pneumothorax suspected. Cardiac silhouette is stable in size compared to prior exam. The bones are osteopenic. There are bony degenerative change s. IMPRESSION: 1. Persistent moderate right pleural effusion, adjacent atelectasis. Pneumonia not excludable. 2. Small left pleural effusion. Reviewed, dictated and finalized at location B.
--- NOTE | ~2020-04-16 | XR_ITS ---
EXAMINATION: XR chest 1V DATE: 04/25/2020 10:20 INDICATION: Right pleural effusion status post thoracentesis. TECHNIQUE: A single frontal view of the chest was obtained. COMPARISON: Chest single view 04/24/2020 FINDINGS: There are small pleural effusions. There are airspace opacities at the lung bases. There is mild scarring at left lung apex. A calcified right lung nodule and calcified right hilar lymph nodes are consistent with old granulomatous disease. No pneumothorax. The heart size is normal. IMPRESSION: 1. Small pleural effusions with improvement on the right status post thoracentesis. 2. Airspace opacities at the lung bases, consistent with atelectasis versus pneumonia. Reviewed, dictated and finalized at location A. IMPRESSION: 1. Small pleural effusions with improvement on the right status post thoracente sis. 2. Airspace opacities at the lung bases, consistent with atelectasis versus pne umonia.
--- NOTE | 2020-04-16 11:34 | ECG_ITS ---
Measurements Intervals [place] Rate: 84 P: 12 [place]: 182 QRS: 40 QRSD: 110 T: 39 QT: 354 QTc: 419 Interpretive Statements SINUS RHYTHM INTRAVENTRICULAR CONDUCTION DELAY DELAYED PRECORDIAL R/S TRANSITION BORDERLINE ST-T WAVE ABNORMALITY- INF/LAT LEADS BASELINE ARTIFACT- I, II, III, AVR, AVL, AVF, V1, V3, V5-V6 BORDERLINE ECG Electronically Signed On 04-16-2020 11:42:31 CDT by Sarwat Tolentino D.O.
--- NOTE | 2020-04-16 11:42 | ED.SOB ---
HPI - SOB/Dyspnea General Chief Complaint: Shortness of Breath/Dyspnea Stated Complaint: SOB Time Seen by Provider: 04/16/20 11:42 Source: patient and family Mode of arrival: EMS Limitations: no limitations History of Present Illness HPI Narrative: Patient is an 84-year-old male with a history of atrial fibrillation, COPD, CVA, hypertension who presents for evaluation of shortness of breath. Patient reports shortness of breath worsening over the past 2 days, states he typically has some dyspnea at baseline, requires 2 L of oxygen at home, but recently had oxygen turned up to 2-1/2 L yesterday by home health, had felt short of breath despite trilogy treatments and increased oxygen requirement at home. Patient denies fever, chills or congestion. No myalgias. He reports feeling diffusely weak. Denies any diarrhea. Patient arrived via EMS, oxygen saturations 90% on 4 L. Patient denied any chest pain. He does have worsening bilateral lower extremity leg swelling. Related Data Home Medications Medication Instructions Recorded Confirmed Trelegy Ellipta 1 inh INHALATION DAILY 03/29/20 03/29/20 Xarelto 20 mg PO DAILY 03/29/20 03/29/20 donepezil [Aricept] 10 mg PO DAILY 03/29/20 03/29/20 finasteride 5 mg PO DAILY 03/29/20 03/29/20 flecainide 100 mg PO BID 03/29/20 03/29/20 furosemide [Lasix] 40 mg PO DAILY 03/29/20 03/29/20 oxybutynin chloride [Ditropan XL] 5 mg PO QID 03/29/20 03/29/20 potassium chloride 20 meq PO DAILY 03/29/20 03/29/20 pravastatin 80 mg PO DAILY 03/29/20 03/29/20 trazodone 200 mg PO HS 03/29/20 03/29/20 Allergies Allergy/AdvReac Type Severity Reaction Status Date / Time No Known Drug Allergies Allergy Unknown Other Unverified 04/16/20 11:41 Review of Systems Review of Systems: Narrative: CONSTITUTIONAL: Denies fever, chills, or sweats. CARDIOVASCULAR: Denies chest pain, palpitations, reports bilateral lower leg swelling RESPIRATORY: Reports cough and shortness of breath GASTROINTESTINAL: Denies abdominal pain, nausea, vomiting, or diarrhea. GENITOURINARY: Denies dysuria or hematuria. SKIN: Denies rash or itching. MUSCULOSKELETAL: Denies back pain, joint pain, or myalgia. NEUROLOGIC: Denies headache, numbness, or weakness. PENDING SALE TO [facility] Past Medical History Medical History Atrial fibrillation with history of MYLA cardioversion June 2012 BPH (benign prostatic hyperplasia) C. difficile colitis January 2015 Chronic respiratory failure with hypoxia, on home O2 therapy 2.5 L nasal cannula COPD (chronic obstructive pulmonary disease) PFTs April 2019: Moderate obstructive deficits, severe small airway disease, mild air trapping, moderate diffusion impairment CVA (cerebral vascular accident) Dementia Depression with anxiety GERD (gastroesophageal reflux disease) Grade I diastolic dysfunction echocardiogram May 2015: Moderate concentric left ventricular hypertrophy, grade 1 diastolic dysfunction, increased left heart filling pressures, ejection fraction 70%, moderate mitral stenosis with mean gradient of 5, valve area of 1.3, moderate aortic stenosis with valve area of 1.1 cm, trace aortic valve regurgitation, RVSP of 34, mild tricuspid regurgitation Hyperlipidemia Kidney stones Macular degeneration Morbid obesity Obstructive sleep apnea does not use CPAP Surgical History Surgical History History of left knee replacement 2007 History of prostate surgery Family History Family History Mother Diabetes mellitus CHF (congestive heart failure) Acute myocardial infarction COPD (chronic obstructive pulmonary disease) Sibling Pancreatic cancer sister Diabetes mellitus multiple siblings Other Hypertension Social History Social History Social History: He drank
[2020-04-16] MEDS: methylPREDNISolone SOD SUCC 125 MG VIAL IV PUSH (12:05)
[2020-04-16] MEDS: MAGNESIUM SULF 2 GM/WATER 50ML 2 GM/50 ML BAG IVPB (12:05)
[2020-04-16 12:20] LABS: Basophils Percent Auto 0.4 % (0.2-1.2); Eosinophils Percent Auto 0.1 % (0-4.4); Hematocrit 42.4 % (42.0-52.0); Hemoglobin 12.2 g/dL (14.0-18.0); Immature Granulocyte Absolute 0.04 K/mm3 (0.00-0.031); Immature Granulocyte Percent A 0.5 % (0-0.5); Lymphocytes Percent Auto 6.3 % (18.3-44.2); Mean Corpuscular HGB Conc 28.8 g/dl (32-36); Mean Corpuscular Hemoglobin 27.4 pg (26-34); Mean Corpuscular Volume 95.1 fl (80-100); Mean Platelet Volume 11.3 fl (7.4-10.4); Monocytes Absolute Auto 0.6 K/mm3 (0.1-0.6); Monocytes Percent Auto 7.6 % (2.6-8.5); Neutrophils Absolute Auto 6.7 K/mm3 (1.3-6.7); Neutrophils Percent Auto 85.1 % (45.5-73.1); Platelet Count Result 262 k/mm3 (150-375); Red Blood Count 4.46 M/mm3 (4.6-6.20); Red Cell Distribution Width 15.5 % (11.5-14.5); White Blood Count 7.9 K/mm3 (4.5-10.0)
[2020-04-16] MEDS: ALBUTEROL SULFATE NEB 2.5 MG/0.5 ML INH 20 MG INHALATION (12:24)
[2020-04-16] MEDS: IPRATROPIUM BR 0.02% INH SOLN 0.5 MG/2.5 ML VIAL 2 MG INHALATION (12:24)
[2020-04-16 12:30] LABS: Lactic Acid Reflex 1.2 mmol/L (0.7-2.1)
[2020-04-16 12:31] LABS: Alveolar/Arterial O2 Gradient 77.1 mmHg; Base Excess ABG 10.2 mEq/l (+/-2.0); Carboxyhemoglobin 1.2 % THb (0-2.0); Fractional Inspired Oxygen 32 %; HCO3 ABG 38.6 mEq/l (22.0-26.0); Methemoglobin ABG 0.2 %THb (0-1.5); Oxygen Content ABG 15.7 %vol (16.0-22.0); Oxygen Saturation ABG 90.7 % (95.0-100.0); Oxyhemoglobin 90.8 % THb (90.0-100.0); PO2 ABG 65.2 mmHg (80.0-100.0); PO2 FiO2 Ratio Arterial Blood 2.04 %; Reduced Hemoglobin 7.8 %THb (0-5.0); Total Hemoglobin 12.3 g/dL (12.0-18.0); pH ABG 7.339 (7.350-7.450)
[2020-04-16 12:31] LABS: Anion Gap 4.99999 mmol/L (8-16); Blood Urea Nitrogen 19 mg/dL (9-20); Calcium 8.9 mg/dL (8.4-10.2); Carbon Dioxide > 40 mmol/L (22-30); Chloride 94 mmol/L (98-107); Estimated CRCL calculation 90 ml/min; Estimated Glomerular Filt Rate > 60; Glucose 132 mg/dL (75-110); Potassium 4.9 mmol/L (3.4-5.0); Sodium 139 mmol/L (137-145)
[2020-04-16 12:32] LABS: Device NASAL CANNULA; Modified Allen's Test Pass; PCO2 ABG 73.4 mmHg (35.0-45.0); Site Drawn LEFT RADIAL
[2020-04-16 12:39] LABS: Anisocytosis 1+ (NORMAL); Hypochromasia 1+ (NORMAL); Platelet Estimate Adequate (Adequate)
[2020-04-16 14:08] LABS: INR 1.5; Lactate Dehydrogenase 413 U/L (313-618); Prothrombin Time 17.3 Seconds (11.1-14.7)
[2020-04-16 14:09] LABS: Partial Thromboplastin Time 35.1 SECONDS (22.3-36.8)
[2020-04-16] MEDS: SODIUM CHLORIDE 0.9% IV 500 ML 999 ML IV CONT (14:11)
[2020-04-16 14:22] LABS: NT Pro B Type Natriuretic Pept 1340 PG/ML (5-100); Troponin I 0.033 ng/mL (0.000-0.034)
[2020-04-16 18:00] LABS: Add Urine Microscopic? YES; Appearance Urine Clear (Clear); Bacteria Urine Trace /hpf; Bilirubin Urine Negative (Negative); Blood Urine Negative (Negative); Color Urine Yellow (Yellow); Glucose Urine UA 1+ mg/dL (Negative); Ketones Urine Negative (Negative); Leukocyte Esterase Ur Trace LEU/UL (Negative); Mucus Urine Rare /lpf; Nitrate Urine Negative (Negative); Protein Urine Negative (Negative); Specific Grav Ur 1.016 (1.001-1.035); Urobilinogen Urine Negative mg/dL (<2.0)
[2020-04-16] MEDS: methylPREDNISolone SOD SUCC 125 MG VIAL 60 MG IV PUSH (19:47)
--- NOTE | 2020-04-16 21:02 | ADMGEN ---
This patient, Jm Wheeler, was admitted to Intensive Care Unit-1. Patient/family oriented to hospital policies and general routines including ID bracelet, bed and alarms, visiting hours, pain management, procedures, bathroom and other care routines, personal items, smoking policy, room service/diet, and visiting hours. Valuables list has been completed. Information on how to activate the Rapid Response Team has been discussed. Patient/Family are encouraged to report perceived risks to care and to ask questions if they do not understand what they are told or what they should do.
[2020-04-16 23:07] LABS: SARS-CoV-2 RNA PCR Negative
[2020-04-17] VITALS (28 sets, daily range): BP systolic 105–152; BP diastolic 47–100; PULSE 69–93; RESP 18–42; TEMP 35.7–37.5; O2SAT 9–97
--- NOTE | 2020-04-17 01:53 | PM.IMHP ---
H&P: HPI History of Present Illness Date/Time: 04/17/20 01:53 Chief complaint: shortness of breath Narrative: Jm Wheeler is a 84 year old male with a past medical history of critical aortic stenosis, atrial fibrillation, diastolic congestive heart failure, COPD and dementia who presented to the ER with shortness of breath That is been worse for the last 2 days. The patient is on 2 L of oxygen at home but had to turned up to 2.5 L on Wednesday. He has also been using his trelogy inhaler and still feels short of breath. He has had increased weakness. Source of information at this time is past medical records as the patient is alert and oriented times 1-2 at the time of my evaluation. I initially asked the patient his name and he answered correctly. However every question I asked hemorrhage regarding orientation after that point he continued to answer his 1st and last name. The patient and told me that he needed to urinate and then proceeded to have urinary incontinence in the bed. He denies any dysuria. He is unable to provide me information regarding his worsening shortness of breath or Whether not he has been having a cough. He was evidently upset with nursing staff earlier in the evening and stated that he wish he had gone to [facility]. The patient had COVID-19 testing performed in the ER which has already returned as negative. He received IV Solu-Medrol , magnesium sulfate, albuterol and Atrovent in the ER. The patient was on 4 L nasal cannula at the time my evaluation satting 90%. Review of Systems Review of Systems: Narrative: 12 systems were reviewed with pertinent positives and negatives per HPI. Except as documented in the HPI, all other systems were reviewed and are negative. [facility] Past Medical History Medical History (Updated 04/17/20 @ 02:50 by Shasha aGrrett DO) Atrial fibrillation with history of MYLA cardioversion June 2012 BPH (benign prostatic hyperplasia) C. difficile colitis January 2015 Chronic respiratory failure with hypoxia, on home O2 therapy 2.5 L nasal cannula COPD (chronic obstructive pulmonary disease) PFTs April 2019: Moderate obstructive deficits, severe small airway disease, mild air trapping, moderate diffusion impairment Critical aortic valve stenosis noted on echocardiogram from March 2020 the patient was referred for an outpatient TAVR with anticipated cardiac catheterization on 04/12/2020 however it is unclear if the patient underwent cardiac catheterization or not CVA (cerebral vascular accident) Dementia Depression with anxiety GERD (gastroesophageal reflux disease) Grade I diastolic dysfunction echocardiogram March 2020: Moderate concentric left ventricular hypertrophy, grade 1 diastolic dysfunction, increased left heart filling pressures, ejection fraction 60-65%, mitral valve not well visualized but prior echocardiogram had demonstrated moderate mitral valve stenosis, valve area of 1.3, critical aortic valve stenosis with peak velocity of 445 and mean gradient of 48 valve area of 0.6, mild pulmonary hypertension with RVSP of 45 Hyperlipidemia Kidney stones Macular degeneration Morbid obesity Obstructive sleep apnea does not use CPAP Surgical History Surgical History (Updated 04/17/20 @ 02:14 by Shasha Garrett DO) History of left knee replacement 2007 History of prostate surgery Status post cataract extraction of both eyes with insertion of intraocular lens Family History Family History Mother Diabetes mellitus CHF (congestive heart failure) Acute myocardial infarction COPD (chronic obstructive pulmonary disease) Sibling Pancreatic cancer sister Diabetes mellitus multiple siblings Other Hypertension Social History Social History Social History: He drank beer quite heavily until the late 1960s. Primary ca
[2020-04-17 02:06] LABS: pH ABG 7.224 (7.350-7.450)
[2020-04-17 02:07] LABS: Base Excess ABG 8.2 mEq/l (+/-2.0); HCO3 ABG 39.2 mEq/l (22.0-26.0); PCO2 ABG 97.2 mmHg (35.0-45.0); PO2 ABG 69.3 mmHg (80.0-100.0); Total Hemoglobin 12.4 g/dL (12.0-18.0)
[2020-04-17 02:08] LABS: Alveolar/Arterial O2 Gradient 67.3 mmHg; Methemoglobin ABG 0.4 %THb (0-1.5); Oxyhemoglobin 89.8 % THb (90.0-100.0); Reduced Hemoglobin 8.8 %THb (0-5.0)
[2020-04-17 02:09] LABS: Device NASAL CANNULA; Fractional Inspired Oxygen 35 %; Modified Allen's Test Pass; PO2 FiO2 Ratio Arterial Blood 1.98 %; Site Drawn RIGHT RADIAL
[2020-04-17 02:11] LABS: Liters per Minute 3.5 LPM; Oxygen Content ABG 15.7 %vol (16.0-22.0)
[2020-04-17] MEDS: methylPREDNISolone SOD SUCC 125 MG VIAL 60 MG IV PUSH ×5 (02:26→23:29)
[2020-04-17 04:55] LABS: Hematocrit 38.5 % (42.0-52.0); Mean Corpuscular HGB Conc 28.6 g/dl (32-36); Mean Corpuscular Hemoglobin 26.8 pg (26-34); Mean Corpuscular Volume 93.7 fl (80-100); Mean Platelet Volume 10.5 fl (7.4-10.4); Platelet Count Result 243 k/mm3 (150-375); Red Blood Count 4.11 M/mm3 (4.6-6.20); Red Cell Distribution Width 15.1 % (11.5-14.5); White Blood Count 5.8 K/mm3 (4.5-10.0)
[2020-04-17 04:57] LABS: pH ABG 7.328 (7.350-7.450)
[2020-04-17 04:58] LABS: PCO2 ABG 71.1 mmHg (35.0-45.0)
[2020-04-17 04:59] LABS: Base Excess ABG 8.2 mEq/l (+/-2.0); HCO3 ABG 36.5 mEq/l (22.0-26.0); Oxygen Saturation ABG 90.4 % (95.0-100.0); PO2 ABG 64.8 mmHg (80.0-100.0); Total Hemoglobin 11.9 g/dL (12.0-18.0)
[2020-04-17 05:00] LABS: Alveolar/Arterial O2 Gradient 211.7 mmHg; Oxygen Content ABG 15.3 %vol (16.0-22.0)
[2020-04-17 05:01] LABS: Carboxyhemoglobin 0.4 % THb (0-2.0); Methemoglobin ABG 0.4 %THb (0-1.5); Reduced Hemoglobin 7.8 %THb (0-5.0)
[2020-04-17 05:02] LABS: Device BIPAP; Fractional Inspired Oxygen 50 %; Modified Allen's Test Pass; Oxyhemoglobin 91.4 % THb (90.0-100.0); Site Drawn RIGHT RADIAL
[2020-04-17 05:03] LABS: Expiratory Pressure 5 cmH2O; Inspiratory Pressure 15 cmH2O
[2020-04-17 05:07] LABS: Anion Gap 4 mmol/L (8-16); Blood Urea Nitrogen 16 mg/dL (9-20); Calcium 8.8 mg/dL (8.4-10.2); Carbon Dioxide 38 mmol/L (22-30); Chloride 97 mmol/L (98-107); Estimated CRCL calculation 90 ml/min; Estimated Glomerular Filt Rate > 60; Glucose 144 mg/dL (75-110); Potassium 4.6 mmol/L (3.4-5.0); Sodium 139 mmol/L (137-145)
--- NOTE | 2020-04-17 05:42 | PC.NURSE ---
This patient, Jm Wheeler, was transferred to [ [facility]] on 04/17/20 at 0542. Personal belongings sent with patient. Belongings list checked and signed with receiving [RN ]. Report given to [Clarice ]. Appropriate documentation sent with patient.
--- NOTE | 2020-04-17 05:57 | PC.NURSE ---
This patient, Jm Wheeler, was received from [ ICU 1] on 04/17/20 at 0530. Personal belongings list checked and signed. Patient/family oriented to unit policies and routines
--- NOTE | 2020-04-17 06:01 | PCRCNOTE ---
Window of time for administration has passed. See next scheduled administration.
[2020-04-17] MEDS: ALBUTEROL SULFATE NEB 2.5 MG/0.5 ML INH 5 MG INHALATION ×3 (08:33→20:46)
[2020-04-17] MEDS: IPRATROPIUM BR 0.02% INH SOLN 0.5 MG/2.5 ML VIAL INHALATION ×3 (08:34→20:46)
[2020-04-17] MEDS: FLECAINIDE ACETATE 100 MG TABLET PO ×2 (08:56→16:51)
[2020-04-17] MEDS: POTASSIUM CHLORIDE 20 MEQ TABLET.ER PO (08:57)
[2020-04-17] MEDS: FINASTERIDE 5 MG TABLET PO (08:57)
[2020-04-17] MEDS: PRAVASTATIN SODIUM 20 MG TABLET 80 MG PO (08:57)
[2020-04-17] MEDS: DONEPEZIL HCL 10 MG TABLET PO (08:58)
[2020-04-17] MEDS: FUROSEMIDE INJ 40 MG/4 ML VIAL IV PUSH (08:58)
--- NOTE | 2020-04-17 12:20 | PM.IMPN ---
Progress Note: A&P Assessment and Plan (1) Respiratory failure, [id number]: Qualifiers: Respiratory failure complication: hypoxia and hypercapnia Qualified Code(s): J96.21 - Acute and chronic respiratory failure with hypoxia; J96.22 - Acute and chronic respiratory failure with hypercapnia Code(s): J96.20 - Acute and chronic respiratory failure, unspecified whether with hypoxia or hypercapnia Status: Acute Assessment and Plan: -----likely due to COPD exacerbation but cannot rule out a small component of CHF. Will continue with ceftriaxone and doxycycline. Azithromycin will be avoided due to his medications. Continue Lasix 40 mg but be very cautious not to lower the preload too much. I will ask pulmonology to see him since he is a current patient with them and was recently hospitalized. I am going to get another ABG later this afternoon. His last ABG shows an improved CO2 and pH but back in March his CO2 was only 43 so this is a pretty significant change. Continue steroids. (2) Acute exacerbation of chronic obstructive airways disease: Code(s): J44.1 - Chronic obstructive pulmonary disease with (acute) exacerbation Status: Acute Assessment and Plan: -----Continue IV Solu-Medrol and nebulizer treatments. (3) Acute on chronic diastolic CHF (congestive heart failure): Code(s): I50.33 - Acute on chronic diastolic (congestive) heart failure Status: Acute Assessment and Plan: -----continue Lasix 40 mg IV daily at this time as the patient does look fluid overloaded. Watch blood pressure closely, we want to avoid lowering the Prieb low too much with his critical aortic stenosis. If the patient worsens, consider cardiology consult (4) Severe aortic stenosis: Code(s): I35.0 - Nonrheumatic aortic (valve) stenosis Status: Acute Assessment and Plan: -----patient has critical aortic stenosis that he is planning to get repair later this month at [facility] (5) Dementia: Code(s): F03.90 - Unspecified dementia without behavioral disturbance Status: Acute Assessment and Plan: -----continue home medications. It sounds like the patient's memory can wax and wane. Time Spent With Patient Time with patient: 25 - 35 minutes Subjective Date/time seen: 04/17/20 12:20 Interval history: Pt is a 84 year old male here for COPD exacerbation. He usually sees Dr. Harris for his lung diease. He does not have a cpap or bipap at home. he also has that is going to be fixed sometime this month at [facility]. Breakfast hand was sitting up in the chair and stated he was feeling better. He said he is not back to baseline but is feeling some relief with the BiPAP. He was short of breath getting from the bed to the chair and this is worse than his baseline. He usually is on 2 L of oxygen at home but is requiring 3 here. He denies chest pain, fevers, chills, abdominal pain, nausea, vomiting, diarrhea or constipation. When asked about his leg swelling, he replies I do not know, I do not look at them Review of Systems Review of Systems: All systems reviewed & are unremarkable except as noted in HPI and below Exam Narrative: Exam Narrative: General: Overweight patient resting comfortably in the chair in no acute distress wearing 3 L of oxygen HEENT: normocephalic Neck: supple Neuro: Alert and oriented CV:RRR with significant murmur heard best at the right intercostal space. Telemetry without any acute arrhythmias Resp: So crackles at the bases, no rhonchi or wheezing. Decreased breath sounds Abd: Soft, non distended. No pain to palpation. Positive bowel sounds Extremities: 2+ pitting edema up to the mid shins Objective Data Vital Signs Vital Signs: Vital Signs - 24 hr 04/16/20 12:33 04/16/20 12:35 04/16/20 13:30 Temperature Pulse Rate 73 94 89 Respiratory Rate
[2020-04-17] MEDS: DOXYCYCLINE HYCLATE 100 MG TABLET PO ×2 (14:04→20:10)
[2020-04-17 15:28] LABS: Alveolar/Arterial O2 Gradient 222.6 mmHg; Base Excess ABG 11.9 mEq/l (+/-2.0); Carboxyhemoglobin 0.1 % THb (0-2.0); Fractional Inspired Oxygen 50 %; HCO3 ABG 37.8 mEq/l (22.0-26.0); Methemoglobin ABG 0.2 %THb (0-1.5); Oxygen Content ABG 15.3 %vol (16.0-22.0); Oxygen Saturation ABG 94.6 % (95.0-100.0); Oxyhemoglobin 94.4 % THb (90.0-100.0); PCO2 ABG 55.8 mmHg (35.0-45.0); PO2 ABG 71.1 mmHg (80.0-100.0); PO2 FiO2 Ratio Arterial Blood 1.42 %; Reduced Hemoglobin 5.3 %THb (0-5.0); Total Hemoglobin 11.5 g/dL (12.0-18.0); pH ABG 7.449 (7.350-7.450)
[2020-04-17 15:29] LABS: Device NON-INVASIVE VENT; Site Drawn LEFT BRACHIAL
[2020-04-17 15:30] LABS: Non-Invasive Expiratory Pressure 5 CMH2O; Non-Invasive Inspiratory Pressure 18 CMH2O; Non-Invasive Vent Rate 20 /MIN
--- NOTE | 2020-04-17 15:34 | PM.CNPUL ---
Assessment and Plan Assessment and plan (1) Acute on chronic diastolic CHF (congestive heart failure): Code(s): I50.33 - Acute on chronic diastolic (congestive) heart failure Status: Acute (2) Respiratory failure, [id number]: Qualifiers: Respiratory failure complication: hypoxia and hypercapnia Qualified Code(s): J96.21 - Acute and chronic respiratory failure with hypoxia; J96.22 - Acute and chronic respiratory failure with hypercapnia Code(s): J96.20 - Acute and chronic respiratory failure, unspecified whether with hypoxia or hypercapnia Status: Acute (3) Obstructive sleep apnea: Code(s): G47.33 - Obstructive sleep apnea (adult) (pediatric) Status: Acute (4) Dementia: Code(s): F03.90 - Unspecified dementia without behavioral disturbance Status: Acute (5) Severe aortic stenosis: Code(s): I35.0 - Nonrheumatic aortic (valve) stenosis Status: Acute Assessment and Plan: HUGO 0.6 cm2 with work up for TAVR next month (6) COPD (chronic obstructive pulmonary disease): Qualifiers: COPD type: COPD with acute exacerbation Qualified Code(s): J44.1 - Chronic obstructive pulmonary disease with (acute) exacerbation Code(s): J44.9 - Chronic obstructive pulmonary disease, unspecified Status: Acute Assessment and Plan: for years, stopped smoking years ago, smoked up to 3 ppd for decades, 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 This 84 yo man is admitted with increasing COPD symptoms, had increase in pCO2 to 97, now improved. * 05/06/2019 : mod obstructive ventilatory defect, severe in the small airways, mild air trapping,mod diffusion defect, no change with BD. * 04/19/2019 CXR 1. Perihilar predominant diffuse interstitial and airspace opacities which could represent pulmonary edema and/or pneumonia. 2. Moderate-sized right and small left pleural effusions with basilar atelectasis and/or pneumonia. [facility] Past Medical History Medical History (Updated 04/17/20 @ 02:50 by Shasha Garrett DO) Atrial fibrillation with history of MYLA cardioversion June 2012 BPH (benign prostatic hyperplasia) C. difficile colitis January 2015 Chronic respiratory failure with hypoxia, on home O2 therapy 2.5 L nasal cannula COPD (chronic obstructive pulmonary disease) PFTs April 2019: Moderate obstructive deficits, severe small airway disease, mild air trapping, moderate diffusion impairment Critical aortic valve stenosis noted on echocardiogram from March 2020 the patient was referred for an outpatient TAVR with anticipated cardiac catheterization on 04/12/2020 however it is unclear if the patient underwent cardiac catheterization or not CVA (cerebral vascular accident) Dementia Depression with anxiety GERD (gastroesophageal reflux disease) Grade I diastolic dysfunction echocardiogram March 2020: Moderate concentric left ventricular hypertrophy, grade 1 diastolic dysfunction, increased left heart filling pressures, ejection fraction 60-65%, mitral valve not well visualized but prior echocardiogram had demonstrated moderate mitral valve stenosis, valve area of 1.3, critical aortic valve stenosis with peak velocity of 445 and mean gradient of 48 valve area of 0.6, mild pulmonary hypertension with RVSP of 45 Hyperlipidemia Kidney stones Macular degeneration Morbid obesity Obstructive sleep apnea does not use CPAP Surgical History Surgical History (Updated 04/17/20 @ 02:14 by Shasha Garrett DO) History of left knee replacement 2007 History of prostate surgery Status post cataract extraction of both eyes with insertion of intraocular lens Family History Family History Mother Diabetes mellitus CHF (congestive he
[2020-04-17] MEDS: RIVAROXABAN 20 MG TABLET PO (16:51)
[2020-04-17] MEDS: traZODone HCL 50 MG TABLET 200 MG PO (20:10)
[2020-04-18] VITALS (27 sets, daily range): BP systolic 103–129; BP diastolic 51–70; PULSE 69–92; RESP 18–26; TEMP 36.1–36.6; O2SAT 92–97
[2020-04-18] MEDS: IPRATROPIUM BR 0.02% INH SOLN 0.5 MG/2.5 ML VIAL INHALATION ×4 (02:22→20:06)
[2020-04-18] MEDS: ALBUTEROL SULFATE NEB 2.5 MG/0.5 ML INH 5 MG INHALATION ×4 (02:22→20:06)
[2020-04-18] MEDS: methylPREDNISolone SOD SUCC 125 MG VIAL 60 MG IV PUSH ×4 (05:16→23:44)
[2020-04-18 09:56] LABS: Hematocrit 37.7 % (42.0-52.0); Hemoglobin 11.1 g/dL (14.0-18.0); Mean Corpuscular HGB Conc 29.4 g/dl (32-36); Mean Corpuscular Hemoglobin 27.1 pg (26-34); Mean Corpuscular Volume 92.2 fl (80-100); Mean Platelet Volume 11.4 fl (7.4-10.4); Platelet Count Result 256 k/mm3 (150-375); Red Blood Count 4.09 M/mm3 (4.6-6.20); Red Cell Distribution Width 15.9 % (11.5-14.5); White Blood Count 9.8 K/mm3 (4.5-10.0)
[2020-04-18] MEDS: FLECAINIDE ACETATE 100 MG TABLET PO ×2 (10:09→17:58)
[2020-04-18] MEDS: DONEPEZIL HCL 10 MG TABLET PO (10:09)
[2020-04-18] MEDS: FINASTERIDE 5 MG TABLET PO (10:09)
[2020-04-18] MEDS: POTASSIUM CHLORIDE 20 MEQ TABLET.ER PO (10:10)
[2020-04-18] MEDS: PRAVASTATIN SODIUM 20 MG TABLET 80 MG PO (10:10)
[2020-04-18] MEDS: FUROSEMIDE INJ 40 MG/4 ML VIAL IV PUSH (10:10)
[2020-04-18] MEDS: DOXYCYCLINE HYCLATE 100 MG TABLET PO ×2 (10:10→23:44)
[2020-04-18 10:13] LABS: Anion Gap 8 mmol/L (8-16); Blood Urea Nitrogen 32 mg/dL (9-20); Carbon Dioxide 34 mmol/L (22-30); Chloride 93 mmol/L (98-107); Estimated CRCL calculation 90 ml/min; Estimated Glomerular Filt Rate > 60; Glucose 201 mg/dL (75-110); Magnesium 2.4 mg/dL (1.6-2.3); Potassium 4.5 mmol/L (3.4-5.0); Sodium 135 mmol/L (137-145)
[2020-04-18 14:33] LABS: Procalcitonin <0.10 ng/mL (<0.10)
--- NOTE | 2020-04-18 16:59 | PM.IMPN ---
Progress Note: A&P Assessment and Plan (1) Respiratory failure, [id number]: Qualifiers: Respiratory failure complication: hypoxia and hypercapnia Qualified Code(s): J96.21 - Acute and chronic respiratory failure with hypoxia; J96.22 - Acute and chronic respiratory failure with hypercapnia Code(s): J96.20 - Acute and chronic respiratory failure, unspecified whether with hypoxia or hypercapnia Status: Acute Assessment and Plan: -----likely due to COPD exacerbation but cannot rule out a small component of CHF. (2) Acute exacerbation of chronic obstructive airways disease: Code(s): J44.1 - Chronic obstructive pulmonary disease with (acute) exacerbation Status: Acute Assessment and Plan: -----Continue IV Solu-Medrol and nebulizer treatments. (3) Acute on chronic diastolic CHF (congestive heart failure): Code(s): I50.33 - Acute on chronic diastolic (congestive) heart failure Status: Acute Assessment and Plan: -----continue Lasix 40 mg IV daily (4) Severe aortic stenosis: Code(s): I35.0 - Nonrheumatic aortic (valve) stenosis Status: Acute Assessment and Plan: -----patient has critical aortic stenosis that he is planning to get repair later this month at [facility] (5) Dementia: Code(s): F03.90 - Unspecified dementia without behavioral disturbance Status: Acute Assessment and Plan: -----continue home medications. It sounds like the patient's memory can wax and wane. Additional Plan 5 Subjective Date/time seen: 04/18/20 16:59 Interval history: Pt is a 84 year old male here for COPD exacerbation. He usually sees Dr. Harris for his lung diease. He does not have a cpap or bipap at home. he also has that is going to be fixed sometime this month at [facility], [place]. Pt has another surgery in [facility], [place] 05/02 under cardiology. Discussed with she would like him better before then Review of Systems Respiratory: Respiratory: Reports chest congestion, Reports cough, Reports dyspnea and Reports wheezing Exam Narrative: Exam Narrative: General: Overweight 2 liters via nasal canulae. obese man Neck: supple Neuro: Alert and oriented CV:RRR Resp: rhonchi and wheeze at the bases. Decreased breath sounds Abd: Soft, non distended. No pain to palpation. Positive bowel sounds Extremities: 2+ pitting edema up to the mid shins Objective Data Vital Signs Vital Signs: Vital Signs - 24 hr 04/17/20 18:00 04/17/20 20:00 04/17/20 20:46 Temperature 37.1 C Pulse Rate 80 85 87 Respiratory Rate 18 22 H Blood Pressure 112/53 L Pulse Oximetry 94 93 04/17/20 20:58 04/17/20 21:53 04/17/20 22:00 Temperature Pulse Rate 85 82 69 Respiratory Rate 22 H 20 Blood Pressure Pulse Oximetry 97 04/17/20 23:34 04/18/20 00:00 04/18/20 02:00 Temperature 35.7 C L Pulse Rate 69 80 77 Respiratory Rate 22 H Blood Pressure 122/62 Pulse Oximetry 94 04/18/20 02:22 04/18/20 02:31 04/18/20 04:00 Temperature Pulse Rate 76 78 75 Respiratory Rate 22 H 22 H Blood Pressure Pulse Oximetry 04/18/20 04:43 04/18/20 06:00 04/18/20 07:54 Temperature 36.2 C L 36.5 C Pulse Rate 91 74 90 Respiratory Rate 20 18 Blood Pressure 122/59 L 129/70 Pulse Oximetry 93 94 04/18/20 08:00 04/18/20 09:36 04/18/20 09:40 Temperature Pulse Rate 92 87 82 Respiratory Rate 20 20 20 Blood Pressure Pulse Oximetry 97 97 04/18/20 10:00 04/18/20 10:09 04/18/20 10:27 Temperature Pulse Rate 82 84 Respiratory Rate Blood Pressure Pulse Oximetry 92 04/18/20 11:58 04/18/20 12:00 04/18/20 14:00 Temperature 36.2 C L Pulse Rate 86 78 73 Respiratory Rate 26 H Blood Pressure 120/63 Pulse Oximetry 94 04/18/20 15:13 04/18/20 15:21 Temperature Pulse Rate 76 74 Respiratory Rate 20 20 Blood Pressure P
[2020-04-18] MEDS: RIVAROXABAN 20 MG TABLET PO (17:58)
--- NOTE | 2020-04-18 18:50 | PC.NURSE ---
This patient, Jm Wheeler, was transferred to [ [id number]] on 04/18/20 at 1851. Personal belongings sent with patient. Belongings list checked and signed with receiving [ ]. Report given to [ LALO Pearl]. Appropriate documentation sent with patient.
[2020-04-18] MEDS: traZODone HCL 50 MG TABLET 200 MG PO (23:44)
[2020-04-19] VITALS (23 sets, daily range): BP systolic 112–146; BP diastolic 56–77; PULSE 64–97; RESP 18–22; TEMP 36.1–36.8; O2SAT 86–96
[2020-04-19] MEDS: ALBUTEROL SULFATE NEB 2.5 MG/0.5 ML INH 5 MG INHALATION ×3 (03:40→21:17)
[2020-04-19] MEDS: IPRATROPIUM BR 0.02% INH SOLN 0.5 MG/2.5 ML VIAL INHALATION ×3 (03:40→21:18)
[2020-04-19] MEDS: methylPREDNISolone SOD SUCC 125 MG VIAL 60 MG IV PUSH ×2 (05:09→11:14)
[2020-04-19 05:32] LABS: Hematocrit 37.4 % (42.0-52.0); Hemoglobin 11.2 g/dL (14.0-18.0); Mean Corpuscular HGB Conc 29.9 g/dl (32-36); Mean Corpuscular Hemoglobin 27.6 pg (26-34); Mean Corpuscular Volume 92.1 fl (80-100); Mean Platelet Volume 11.3 fl (7.4-10.4); Platelet Count Result 249 k/mm3 (150-375); Red Blood Count 4.06 M/mm3 (4.6-6.20); Red Cell Distribution Width 15.9 % (11.5-14.5); White Blood Count 7.7 K/mm3 (4.5-10.0)
[2020-04-19 05:46] LABS: Anion Gap 6 mmol/L (8-16); Blood Urea Nitrogen 40 mg/dL (9-20); Calcium 8.7 mg/dL (8.4-10.2); Carbon Dioxide 35 mmol/L (22-30); Chloride 93 mmol/L (98-107); Estimated CRCL calculation 80 ml/min; Estimated Glomerular Filt Rate > 60; Glucose 189 mg/dL (75-110); Potassium 4.4 mmol/L (3.4-5.0); Sodium 134 mmol/L (137-145)
[2020-04-19] MEDS: FUROSEMIDE INJ 40 MG/4 ML VIAL IV PUSH (09:18)
[2020-04-19] MEDS: PRAVASTATIN SODIUM 20 MG TABLET 80 MG PO (09:18)
[2020-04-19] MEDS: POTASSIUM CHLORIDE 20 MEQ TABLET.ER PO (09:18)
[2020-04-19] MEDS: DONEPEZIL HCL 10 MG TABLET PO (09:18)
[2020-04-19] MEDS: FINASTERIDE 5 MG TABLET PO (09:18)
[2020-04-19] MEDS: DOXYCYCLINE HYCLATE 100 MG TABLET PO ×2 (09:18→20:28)
[2020-04-19] MEDS: FLECAINIDE ACETATE 100 MG TABLET PO ×2 (09:18→16:05)
--- NOTE | 2020-04-19 12:10 | PM.IMPN ---
Progress Note: A&P Assessment and Plan (1) Respiratory failure, [id number]: Qualifiers: Respiratory failure complication: hypoxia and hypercapnia Qualified Code(s): J96.21 - Acute and chronic respiratory failure with hypoxia; J96.22 - Acute and chronic respiratory failure with hypercapnia Code(s): J96.20 - Acute and chronic respiratory failure, unspecified whether with hypoxia or hypercapnia Status: Acute Assessment and Plan: -----likely due to COPD exacerbation but cannot rule out a small component of CHF. hopegul discharge over the weekend. cxr still shows pleural effusion and pneumonia (2) Acute exacerbation of chronic obstructive airways disease: Code(s): J44.1 - Chronic obstructive pulmonary disease with (acute) exacerbation Status: Acute Assessment and Plan: -----Continue IV Solu-Medrol and nebulizer treatments.iv rocephin and iv doxycycline (3) Acute on chronic diastolic CHF (congestive heart failure): Code(s): I50.33 - Acute on chronic diastolic (congestive) heart failure Status: Acute Assessment and Plan: -----continue Lasix 40 mg IV daily (4) Severe aortic stenosis: Code(s): I35.0 - Nonrheumatic aortic (valve) stenosis Status: Acute Assessment and Plan: -----patient has critical aortic stenosis that he is planning to get repair later this month at [facility] (5) Dementia: Code(s): F03.90 - Unspecified dementia without behavioral disturbance Status: Acute Assessment and Plan: -----continue home medications. It sounds like the patient's memory can wax and wane. Additional Plan Subjective Date/time seen: 04/19/20 12:10 Interval history: Pt is a 84 year old male here for COPD exacerbation. He usually sees Dr. Harris for his lung diease. He does not have a cpap or bipap at home. he also has that is going to be fixed sometime this month at [facility] this surgery is in [place] 8/27 under cardiology. Discussed with she would like him better before then. pt feels better currently on 2 liters of oxygen Review of Systems Review of Systems: All systems reviewed & are unremarkable except as noted in HPI and below Respiratory: Respiratory: Reports chest congestion, Reports cough and Reports dyspnea Exam Narrative: Exam Narrative: General: Overweight 2 liters via nasal canulae. obese man Neck: supple Neuro: Alert and oriented CV:RRR Resp: no rhonchi and wheeze at the bases today. Decreased breath sounds Abd: Soft, non distended. No pain to palpation. Positive bowel sounds Extremities: 2+ pitting edema up to the mid shins Objective Data Vital Signs Vital Signs: Vital Signs - 24 hr 04/18/20 14:00 04/18/20 15:13 04/18/20 15:21 Temperature Pulse Rate 73 76 74 Respiratory Rate 20 20 Blood Pressure Pulse Oximetry 04/18/20 16:00 04/18/20 17:58 04/18/20 18:00 Temperature 36.6 C Pulse Rate 72 86 82 Respiratory Rate 20 Blood Pressure 103/51 L Pulse Oximetry 92 04/18/20 19:35 04/18/20 20:00 04/18/20 20:10 Temperature 36.1 C L Pulse Rate 69 71 69 Respiratory Rate 20 22 H 20 Blood Pressure 117/62 Pulse Oximetry 96 93 04/18/20 20:20 04/18/20 23:45 04/19/20 00:00 Temperature 36.4 C Pulse Rate 72 70 66 Respiratory Rate 20 20 20 Blood Pressure 146/77 H Pulse Oximetry 93 93 04/19/20 03:38 04/19/20 03:41 04/19/20 03:51 Temperature Pulse Rate 67 67 69 Respiratory Rate 20 20 20 Blood Pressure Pulse Oximetry 92 04/19/20 04:00 04/19/20 08:00 04/19/20 08:12 Temperature 36.1 C L Pulse Rate 67 88 87 Respiratory Rate 22 H 22 H Blood Pressure 127/60 Pulse Oximetry 93 92 04/19/20 08:22 04/19/20 09:18 04/19/20 10:00 Temperature 36.4 C Pulse Rate 82 84 77 Respiratory Rate 22 H 18 Blood Pressure 112/58 L Pulse Oximetry 95 Intake/Outp
--- NOTE | 2020-04-19 15:45 | PCRCNOTE ---
Window of time for administration has passed. See next scheduled administration.
[2020-04-19] MEDS: RIVAROXABAN 20 MG TABLET PO (16:05)
[2020-04-19] MEDS: ALPRAZolam 0.25 MG TABLET PO (16:05)
[2020-04-19] MEDS: methylPREDNISolone SOD SUCC 40 MG VIAL IV PUSH ×2 (17:00→23:36)
[2020-04-19] MEDS: traZODone HCL 50 MG TABLET 200 MG PO (20:28)
[2020-04-20] VITALS (25 sets, daily range): BP systolic 107–143; BP diastolic 57–81; PULSE 61–90; RESP 20–28; TEMP 35.8–36.6; O2SAT 93–99
[2020-04-20] MEDS: ALBUTEROL SULFATE NEB 2.5 MG/0.5 ML INH 5 MG INHALATION ×4 (02:34→20:15)
[2020-04-20] MEDS: IPRATROPIUM BR 0.02% INH SOLN 0.5 MG/2.5 ML VIAL INHALATION ×4 (02:34→20:15)
[2020-04-20] MEDS: ALPRAZolam 0.25 MG TABLET PO (04:39)
[2020-04-20] MEDS: methylPREDNISolone SOD SUCC 40 MG VIAL IV PUSH ×3 (05:33→21:34)
[2020-04-20] MEDS: PRAVASTATIN SODIUM 20 MG TABLET 80 MG PO (08:05)
[2020-04-20] MEDS: FLECAINIDE ACETATE 100 MG TABLET PO ×2 (08:06→16:19)
[2020-04-20] MEDS: DONEPEZIL HCL 10 MG TABLET PO (08:06)
[2020-04-20] MEDS: DOXYCYCLINE HYCLATE 100 MG TABLET PO ×2 (08:07→21:33)
[2020-04-20] MEDS: POTASSIUM CHLORIDE 20 MEQ TABLET.ER PO (08:07)
[2020-04-20] MEDS: FINASTERIDE 5 MG TABLET PO (08:07)
[2020-04-20] MEDS: FUROSEMIDE INJ 40 MG/4 ML VIAL IV PUSH (08:07)
--- NOTE | 2020-04-20 13:58 | PM.IMPN ---
Progress Note: A&P Assessment and Plan (1) Respiratory failure, [id number]: Qualifiers: Respiratory failure complication: hypoxia and hypercapnia Qualified Code(s): J96.21 - Acute and chronic respiratory failure with hypoxia; J96.22 - Acute and chronic respiratory failure with hypercapnia Code(s): J96.20 - Acute and chronic respiratory failure, unspecified whether with hypoxia or hypercapnia Status: Acute Assessment and Plan: -----likely due to COPD exacerbation but cannot rule out a small component of CHF. hopeful discharge on wednesday cxr still shows pleural effusion and pneumonia (2) Acute exacerbation of chronic obstructive airways disease: Code(s): J44.1 - Chronic obstructive pulmonary disease with (acute) exacerbation Status: Acute Assessment and Plan: -----Continue IV Solu-Medrol and nebulizer treatments.iv rocephin and iv doxycycline (3) Acute on chronic diastolic CHF (congestive heart failure): Code(s): I50.33 - Acute on chronic diastolic (congestive) heart failure Status: Acute Assessment and Plan: -----continue Lasix 40 mg IV daily (4) Severe aortic stenosis: Code(s): I35.0 - Nonrheumatic aortic (valve) stenosis Status: Acute Assessment and Plan: -----patient has critical aortic stenosis that he is planning to get repair later this month at [facility]. needs to get stable for surgery (5) Dementia: Code(s): F03.90 - Unspecified dementia without behavioral disturbance Status: Acute Assessment and Plan: -----continue home medications. It sounds like the patient's memory can wax and wane. Additional Plan Subjective Date/time seen: 04/20/20 13:58 Interval history: 84 year old male with a past medical history of critical aortic stenosis, atrial fibrillation, diastolic congestive heart failure, COPD and dementia who presented to the ER with shortness of breath That is been worse for the last 2 days. The patient is on 2 L of oxygen at home but had to turned up to 2.5 L on Wednesday. Pt is doing better hopeful discharge on wednesday. Review of Systems Review of Systems: All systems reviewed & are unremarkable except as noted in HPI and below Cardiovascular: Cardiovascular: Reports dyspnea Respiratory: Respiratory: Reports chest congestion, Reports cough, Reports dyspnea and Reports wheezing Allergic/Immunologic: Allergic/Immunologic: Reports wheezing Exam Narrative: Exam Narrative: General: Overweight 2 liters via nasal canulae. obese man Neck: supple Neuro: Alert and oriented CV:RRR Resp: no rhonchi and wheeze at the bases today. Decreased breath sounds Abd: Soft, non distended. No pain to palpation. Positive bowel sounds Extremities: 2+ pitting edema up to the mid shins Objective Data Vital Signs Vital Signs: Vital Signs - 24 hr 04/19/20 14:00 04/19/20 16:00 04/19/20 16:05 Temperature 36.8 C Pulse Rate 85 91 89 Respiratory Rate 21 H Blood Pressure 133/58 L Pulse Oximetry 92 04/19/20 18:00 04/19/20 18:08 04/19/20 18:09 Temperature 36.3 C L Pulse Rate 94 Respiratory Rate 20 Blood Pressure 120/56 L Pulse Oximetry 92 86 L 91 04/19/20 20:00 04/19/20 21:20 04/19/20 21:22 Temperature Pulse Rate 68 92 Respiratory Rate 22 H Blood Pressure Pulse Oximetry 96 04/19/20 21:23 04/19/20 21:32 04/19/20 22:00 Temperature 36.3 C L Pulse Rate 92 97 68 Respiratory Rate 22 H 22 H 20 Blood Pressure 131/57 L Pulse Oximetry 96 96 04/20/20 00:00 04/20/20 02:01 04/20/20 02:36 Temperature 36.4 C Pulse Rate 63 62 61 Respiratory Rate 20 20 Blood Pressure 143/60 H Pulse Oximetry 99 04/20/20 02:40 04/20/20 02:46 04/20/20 04:00 Temperature Pulse Rate 61 63 85 Respiratory Rate 20 20 Blood Pressure Pulse Oximetry 93 04/20/20 05:00 04/20/20 06:00 04/20/20 08:00 Temperature
[2020-04-20] MEDS: RIVAROXABAN 20 MG TABLET PO (16:19)
[2020-04-20] MEDS: traZODone HCL 50 MG TABLET 200 MG PO (21:33)
[2020-04-21] VITALS (21 sets, daily range): BP systolic 111–147; BP diastolic 48–73; PULSE 62–85; RESP 20–26; TEMP 35.7–36.3; O2SAT 93–98
[2020-04-21] MEDS: ALBUTEROL SULFATE NEB 2.5 MG/0.5 ML INH 5 MG INHALATION ×4 (01:32→20:06)
[2020-04-21] MEDS: IPRATROPIUM BR 0.02% INH SOLN 0.5 MG/2.5 ML VIAL INHALATION ×4 (01:33→20:06)
[2020-04-21] MEDS: methylPREDNISolone SOD SUCC 40 MG VIAL IV PUSH (05:12)
[2020-04-21] MEDS: FINASTERIDE 5 MG TABLET PO (08:01)
[2020-04-21] MEDS: DOXYCYCLINE HYCLATE 100 MG TABLET PO ×2 (08:01→21:06)
[2020-04-21] MEDS: DONEPEZIL HCL 10 MG TABLET PO (08:01)
[2020-04-21] MEDS: POTASSIUM CHLORIDE 20 MEQ TABLET.ER PO (08:01)
[2020-04-21] MEDS: FLECAINIDE ACETATE 100 MG TABLET PO ×2 (08:01→15:59)
[2020-04-21] MEDS: PRAVASTATIN SODIUM 20 MG TABLET 80 MG PO (08:01)
[2020-04-21] MEDS: FUROSEMIDE INJ 40 MG/4 ML VIAL IV PUSH (08:01)
--- NOTE | 2020-04-21 10:55 | PCOTNOTE ---
Patient sleeping soundly, unable to wake to participate in OT. Will attempt later if time permits, or continue plan of care tomorrow 04/22/2020.
--- NOTE | 2020-04-21 12:49 | PM.IMPN ---
Progress Note: A&P Assessment and Plan (1) Respiratory failure, [id number]: Qualifiers: Respiratory failure complication: hypoxia and hypercapnia Qualified Code(s): J96.21 - Acute and chronic respiratory failure with hypoxia; J96.22 - Acute and chronic respiratory failure with hypercapnia Code(s): J96.20 - Acute and chronic respiratory failure, unspecified whether with hypoxia or hypercapnia Status: Acute Assessment and Plan: -----likely due to COPD exacerbation but cannot rule out a small component of CHF. hopeful discharge on wednesday cxr still shows pleural effusion and pneumonia (2) Acute exacerbation of chronic obstructive airways disease: Code(s): J44.1 - Chronic obstructive pulmonary disease with (acute) exacerbation Status: Acute Assessment and Plan: -----Continue IV Solu-Medrol and nebulizer treatments.iv rocephin and oral doxycycline (3) Acute on chronic diastolic CHF (congestive heart failure): Code(s): I50.33 - Acute on chronic diastolic (congestive) heart failure Status: Acute Assessment and Plan: -----continue Lasix 40 mg IV daily (4) Severe aortic stenosis: Code(s): I35.0 - Nonrheumatic aortic (valve) stenosis Status: Acute Assessment and Plan: -----patient has critical aortic stenosis that he is planning to get repair later this month at [facility]. needs to get stable for surgery (5) Dementia: Code(s): F03.90 - Unspecified dementia without behavioral disturbance Status: Acute Assessment and Plan: -----continue home medications. It sounds like the patient's memory varies. Additional Plan Subjective Date/time seen: 04/21/20 12:49 Interval history: 84 year old male with a past medical history of critical aortic stenosis, atrial fibrillation, diastolic congestive heart failure, COPD and dementia who presented to the ER with shortness of breath That is been worse for the last 2 days. The patient is on 2 L of oxygen at home but had to turned up to 2.5 L on Wednesday. Pt is doing better hopeful discharge on wednesday. Gradually improving. Review of Systems Review of Systems: All systems reviewed & are unremarkable except as noted in HPI and below Respiratory: Respiratory: Reports chest congestion, Reports cough, Reports dyspnea and Reports wheezing Exam Narrative: Exam Narrative: General: Overweight 4 liters via nasal canulae. obese man Neck: supple Neuro: Alert and oriented CV:RRR Resp: wheezy lungs. Decreased breath sounds Abd: Soft, non distended. No pain to palpation. Positive bowel sounds Extremities: 2+ pitting edema up to the mid shins Objective Data Vital Signs Vital Signs: Vital Signs - 24 hr 04/20/20 14:00 04/20/20 15:23 04/20/20 15:31 Temperature 36.6 C Pulse Rate 79 72 68 Respiratory Rate 24 H 20 20 Blood Pressure 128/61 Pulse Oximetry 97 04/20/20 16:00 04/20/20 16:19 04/20/20 18:00 Temperature 36.4 C L Pulse Rate 86 86 90 Respiratory Rate 28 H Blood Pressure 111/58 L Pulse Oximetry 97 04/20/20 20:00 04/20/20 20:15 04/20/20 20:28 Temperature Pulse Rate 90 81 88 Respiratory Rate 22 H 25 H Blood Pressure Pulse Oximetry 95 96 04/20/20 22:00 04/20/20 23:19 04/21/20 00:00 Temperature 36.4 C L Pulse Rate 83 81 62 Respiratory Rate 20 28 H Blood Pressure 122/60 Pulse Oximetry 96 95 04/21/20 01:32 04/21/20 01:40 04/21/20 02:05 Temperature 36.1 C L Pulse Rate 65 67 68 Respiratory Rate 22 H 22 H 20 Blood Pressure 147/73 H Pulse Oximetry 97 97 04/21/20 04:00 04/21/20 06:00 04/21/20 07:42 Temperature 35.7 C L Pulse Rate 85 82 72 Respiratory Rate 20 20 Blood Pressure 132/62 Pulse Oximetry 96 94 04/21/20 07:52 04/21/20 08:00 04/21/20 08:01 Temperature Pulse Rate 72 71 72 Respiratory Rate 20 Blood Pressure Pulse Oximetry 04/21/20 1
[2020-04-21] MEDS: ALPRAZolam 0.25 MG TABLET PO (13:32)
[2020-04-21] MEDS: methylPREDNISolone SOD SUCC 40 MG VIAL 20 MG IV PUSH ×2 (13:33→21:07)
[2020-04-21] MEDS: RIVAROXABAN 20 MG TABLET PO (15:59)
[2020-04-21] MEDS: traZODone HCL 50 MG TABLET 200 MG PO (21:06)
[2020-04-22] VITALS (24 sets, daily range): BP systolic 113–120; BP diastolic 42–61; PULSE 64–90; RESP 20–36; TEMP 36.2–36.7; O2SAT 94–98
[2020-04-22] MEDS: IPRATROPIUM BR 0.02% INH SOLN 0.5 MG/2.5 ML VIAL INHALATION ×4 (02:15→20:40)
[2020-04-22] MEDS: ALBUTEROL SULFATE NEB 2.5 MG/0.5 ML INH 5 MG INHALATION ×5 (02:15→20:40)
[2020-04-22] MEDS: methylPREDNISolone SOD SUCC 40 MG VIAL 20 MG IV PUSH ×3 (05:29→20:23)
--- NOTE | 2020-04-22 05:58 | PC.NURSE ---
Pt asked us to remove Bipap. He stated, My mouth is dry and I want to eat ice for awhile! I explained to him that Dr. Yañez wanted him to wear the Bipap for a little longer and patient stated, I dont care what the doctor said! He doesn't know how I feel or what I am going through! Applied o2 at 4l per nc per pt request. O2 sat was at 86-87% with o2 4l per nc. Had patient take deep breaths and o2 sats were 89-91%Will monitor closely. Will reattempt to apply Bipap in a few minutes.
--- NOTE | 2020-04-22 06:11 | PC.NURSE ---
Checked on pt and his o2 sat's are at 76% on 4l per nc. I advised him that Doctor wanted him to wear the bipap. He agreed to wear bipap at this time. I applied Bipap. O2 sats with bipap on are at 94-95%. Will monitor closely.
[2020-04-22] MEDS: PRAVASTATIN SODIUM 20 MG TABLET 80 MG PO (08:57)
[2020-04-22] MEDS: FUROSEMIDE INJ 40 MG/4 ML VIAL IV PUSH ×2 (08:57→16:51)
[2020-04-22] MEDS: POTASSIUM CHLORIDE 20 MEQ TABLET.ER PO (08:58)
[2020-04-22] MEDS: DONEPEZIL HCL 10 MG TABLET PO (08:58)
[2020-04-22] MEDS: DOXYCYCLINE HYCLATE 100 MG TABLET PO ×2 (08:58→20:23)
[2020-04-22] MEDS: FLECAINIDE ACETATE 100 MG TABLET PO ×2 (08:58→16:50)
[2020-04-22] MEDS: FINASTERIDE 5 MG TABLET PO (08:59)
--- NOTE | 2020-04-22 15:13 | PM.IMPN ---
Progress Note: A&P Assessment and Plan (1) Respiratory failure, [id number]: Qualifiers: Respiratory failure complication: hypoxia and hypercapnia Qualified Code(s): J96.21 - Acute and chronic respiratory failure with hypoxia; J96.22 - Acute and chronic respiratory failure with hypercapnia Code(s): J96.20 - Acute and chronic respiratory failure, unspecified whether with hypoxia or hypercapnia Status: Acute Assessment and Plan: -----likely due to COPD exacerbation but cannot rule out a small component of CHF. hopeful discharge on wednesday cxr still shows pleural effusion and pneumonia 84 year old male with a past medical history of critical aortic stenosis, atrial fibrillation, diastolic congestive heart failure, COPD and dementia who presented to the ER with shortness of breath That is been worse for the last 2 days. The patient is on 2 L of oxygen at home but had to turned up to 2.5 L on Wednesday. Gradually improving, today patient is required constant BiPAP, however repeat chest x-ray shows persistent pleural effusion and pneumonia, will increase patient Lasix 40 mg IV b.i.d. and fluid restriction to 1500 cc per day, will continue to monitor (2) Acute exacerbation of chronic obstructive airways disease: Code(s): J44.1 - Chronic obstructive pulmonary disease with (acute) exacerbation Status: Acute Assessment and Plan: -----Continue IV Solu-Medrol and nebulizer treatments.iv rocephin and oral doxycycline, will taper Solu-Medrol as patient's symptom improve. (3) Acute on chronic diastolic CHF (congestive heart failure): Code(s): I50.33 - Acute on chronic diastolic (congestive) heart failure Status: Acute Assessment and Plan: -----continue Lasix 40 mg IV daily (4) Severe aortic stenosis: Code(s): I35.0 - Nonrheumatic aortic (valve) stenosis Status: Acute Assessment and Plan: -----patient has critical aortic stenosis that he is planning to get repair later this month at [facility]. needs to get stable for surgery (5) Dementia: Code(s): F03.90 - Unspecified dementia without behavioral disturbance Status: Acute Assessment and Plan: -----continue home medications. It sounds like the patient's memory varies. Subjective Date/time seen: 08/17/20 15:13 Interval history: 84 year old male with a past medical history of critical aortic stenosis, atrial fibrillation, diastolic congestive heart failure, COPD and dementia who presented to the ER with shortness of breath That is been worse for the last 2 days. The patient is on 2 L of oxygen at home but had to turned up to 2.5 L on Wednesday. Gradually improving, today patient is required constant BiPAP, however repeat chest x-ray shows persistent pleural effusion and pneumonia, will increase patient Lasix 40 mg IV b.i.d. and fluid restriction to 1500 cc per day, will continue to monitor Review of Systems Review of Systems: All systems reviewed & are unremarkable except as noted in HPI and below Exam Narrative: Exam Narrative: moderately obese Const: General: comfortable and no acute distress HENMT: General nose exam: Normal nares present Mouth: Yes moist mucous membranes Eyes: General: appearance normal, both eyes and all related structures Sclera: sclerae normal Neck: Neck: supple Resp: Other: bilateral fair air entry with rales and rhonchi Cardio: Rate: regular rate Rhythm: regular rhythm GI: Auscultation: normal bowel sounds Skin: General skin exam: normal color Neuro: Speech: normal speech Sensory Exam: normal sensation Extrem: General: normal to inspection Psych: Affect: Anxious affect present Objective Data Vital Signs Vital Signs: Vital Signs - 24 hr 04/21/20 15:59 04/21/20 20:09 04/21/20 20:10 Temperature Pulse Rate 75 78 78 Respiratory Rate 20 26 H Blood Pressure Pulse Oximetry
[2020-04-22] MEDS: RIVAROXABAN 20 MG TABLET PO (16:51)
--- NOTE | 2020-04-22 19:45 | PM.PNPUL ---
Progress Note: A&P Assessment and Plan (1) Acute on chronic diastolic CHF (congestive heart failure): Code(s): I50.33 - Acute on chronic diastolic (congestive) heart failure Status: Acute (2) Respiratory failure, [id number]: Qualifiers: Respiratory failure complication: hypoxia and hypercapnia Qualified Code(s): J96.21 - Acute and chronic respiratory failure with hypoxia; J96.22 - Acute and chronic respiratory failure with hypercapnia Code(s): J96.20 - Acute and chronic respiratory failure, unspecified whether with hypoxia or hypercapnia Status: Acute (3) Obstructive sleep apnea: Code(s): G47.33 - Obstructive sleep apnea (adult) (pediatric) Status: Acute (4) Dementia: Code(s): F03.90 - Unspecified dementia without behavioral disturbance Status: Acute (5) Severe aortic stenosis: Code(s): I35.0 - Nonrheumatic aortic (valve) stenosis Status: Acute Assessment and Plan: HUGO 0.6 cm2 with work up for TAVR next month (6) COPD (chronic obstructive pulmonary disease): Qualifiers: COPD type: COPD with acute exacerbation Qualified Code(s): J44.1 - Chronic obstructive pulmonary disease with (acute) exacerbation Code(s): J44.9 - Chronic obstructive pulmonary disease, unspecified Status: Acute Assessment and Plan: for years, stopped smoking years ago, smoked up to 3 ppd for decades, started age 13 and worked as a [employer] Subjective Date/time seen: 04/22/20 19:45 Exam Const: General: no acute distress (sitting in chair, with help can pivot to bed with walker) HENMT: Ears: hearing grossly impaired General nose exam: Normal external nose present and Normal nares present Face and sinus: normal facial exam Mouth: Yes other (dry membranes) Teeth and gingiva: poor dentition (many missing teeth) Neck: Neck: no JVD Lymphatic: lymphadenopathy not noted Resp: Auscultation: diminished lung sounds Cardio: Rate: regular rate Rhythm: regular rhythm Heart sounds: Murmur heart sound present systolic crescendo and IV/ : Other: wearing adult diaper Skin: General skin exam: normal color Lesions: lesion noted vesicle left dorsal hand other (and scattered ecchymoses both arms/hands) Neuro: Speech: normal speech Psych: Affect: normal affect (pleasant, poor memory, I wish my were here ) Objective Data Vital Signs Vital Signs: Vital Signs - 24 hr 04/21/20 20:09 04/21/20 20:10 04/21/20 20:11 Temperature Pulse Rate 78 78 Respiratory Rate 20 26 H Blood Pressure Pulse Oximetry 96 96 04/21/20 20:20 04/21/20 22:00 04/22/20 02:15 Temperature 36.1 C L Pulse Rate 81 65 74 Respiratory Rate 20 21 H 20 Blood Pressure 111/48 L Pulse Oximetry 97 04/22/20 02:16 04/22/20 04:41 04/22/20 05:00 Temperature Pulse Rate 74 75 Respiratory Rate 20 36 H 25 H Blood Pressure Pulse Oximetry 96 94 04/22/20 05:12 04/22/20 05:18 04/22/20 05:31 Temperature 36.2 C L Pulse Rate 78 72 90 Respiratory Rate 25 H 30 H 24 H Blood Pressure 120/61 Pulse Oximetry 97 04/22/20 07:56 04/22/20 07:57 04/22/20 07:58 Temperature Pulse Rate 75 75 Respiratory Rate 25 H 28 H Blood Pressure Pulse Oximetry 95 95 04/22/20 08:10 04/22/20 08:58 04/22/20 09:14 Temperature Pulse Rate 78 64 Respiratory Rate 22 H Blood Pressure Pulse Oximetry 96 04/22/20 12:59 04/22/20 13:00 04/22/20 13:18 Temperature Pulse Rate 73 72 72 Respiratory Rate 26 H 25 H 25 H Blood Pressure Pulse Oximetry 95 04/22/20 14:00 04/22/20 16:50 Temperature 36.3 C L Pulse Rate 75 80 Respiratory Rate 21 H Blood Pressure 113/57 L Pulse Oximetry 98 Intake/Output Intake/Output: Intake & Output 04/19/20 04/20/20 04/21/20 04/22/20 23:59 23:59 23:59 23:59 Intake Total 2440 2390 2470 1496 Output Total 950 1650 1675 1525 Balance 1490 740 795 -29 Meds/Results Medications:
[2020-04-22] MEDS: traZODone HCL 50 MG TABLET 200 MG PO (20:23)
[2020-04-22] MEDS: ALPRAZolam 0.25 MG TABLET PO (20:23)
[2020-04-23] VITALS (21 sets, daily range): BP systolic 106–117; BP diastolic 49–54; PULSE 69–87; RESP 20–34; TEMP 36–36.9; O2SAT 93–98
[2020-04-23] MEDS: IPRATROPIUM BR 0.02% INH SOLN 0.5 MG/2.5 ML VIAL INHALATION ×4 (02:15→20:03)
[2020-04-23] MEDS: ALBUTEROL SULFATE NEB 2.5 MG/0.5 ML INH 5 MG INHALATION ×4 (02:15→20:02)
[2020-04-23] MEDS: methylPREDNISolone SOD SUCC 40 MG VIAL 20 MG IV PUSH (06:20)
[2020-04-23 09:03] LABS: Anion Gap 8.99999 mmol/L (8-16); Blood Urea Nitrogen 46 mg/dL (9-20); Calcium 9.1 mg/dL (8.4-10.2); Carbon Dioxide > 40 mmol/L (22-30); Chloride 88 mmol/L (98-107); Estimated CRCL calculation 72 ml/min; Estimated Glomerular Filt Rate > 60; Glucose 129 mg/dL (75-110); Sodium 137 mmol/L (137-145)
[2020-04-23] MEDS: DONEPEZIL HCL 10 MG TABLET PO (09:21)
[2020-04-23] MEDS: FLECAINIDE ACETATE 100 MG TABLET PO ×2 (09:21→18:13)
[2020-04-23] MEDS: FINASTERIDE 5 MG TABLET PO (09:21)
[2020-04-23] MEDS: DOXYCYCLINE HYCLATE 100 MG TABLET PO ×2 (09:21→19:50)
[2020-04-23] MEDS: PRAVASTATIN SODIUM 20 MG TABLET 80 MG PO (09:22)
[2020-04-23] MEDS: FUROSEMIDE INJ 40 MG/4 ML VIAL IV PUSH (09:22)
--- NOTE | 2020-04-23 11:22 | PCDIET ---
Weekly nutritional screen. Patient is tolerating current diet, which is appropriate, with adequate intake (100% all meals). No weight loss reported. No nutritional needs at this time.
--- NOTE | 2020-04-23 12:28 | PM.PNPUL ---
Progress Note: A&P Assessment and Plan (1) Acute on chronic diastolic CHF (congestive heart failure): Code(s): I50.33 - Acute on chronic diastolic (congestive) heart failure Status: Acute (2) Pleural effusion: Code(s): J90 - Pleural effusion, not elsewhere classified Status: Acute Assessment and Plan: Likely due to CHF. - Will hold Rivaroxaban and order U/S guided thoracentesis - pleural fluid to be sent for chemistry studies, cytology and culture - will add Diamox 250 mg IV daily (3) Acute exacerbation of chronic obstructive airways disease: Code(s): J44.1 - Chronic obstructive pulmonary disease with (acute) exacerbation Status: Acute Subjective Date/time seen: 04/23/20 12:28 Interval history: Still feeling weak and short of breath. He has diffuse edema in bilateral upper and LE along with unresolving right pleural effusion likely all due to CHF from aortic stenosis. He denies significant productive cough or infectious symptoms. He's not febrile. Review of Systems Review of Systems: All systems reviewed & are unremarkable except as noted in HPI and below Exam Const: General: no acute distress Eyes: General: appearance normal, both eyes and all related structures Neck: Neck: supple Resp: Auscultation: diminished lung sounds Other: R>L Cardio: Rate: regular rate Rhythm: regular rhythm Heart sounds: Murmur heart sound present Other: 2/6 systolic murmur in aortic area with almost absent S2 Skin: General skin exam: normal color and no rashes or lesions noted Neuro: Cognition (Neuro): normal cognition Speech: normal speech Extrem: General: pedal edema bilaterally Psych: Mental Status: mental status grossly normal Affect: normal affect Objective Data Vital Signs Vital Signs: Vital Signs - 24 hr 04/22/20 12:59 04/22/20 13:00 04/22/20 13:18 Temperature Pulse Rate 73 72 72 Respiratory Rate 26 H 25 H 25 H Blood Pressure Pulse Oximetry 95 04/22/20 14:00 04/22/20 16:50 04/22/20 20:00 Temperature 36.3 C L Pulse Rate 75 80 86 Respiratory Rate 21 H 24 H Blood Pressure 113/57 L Pulse Oximetry 98 97 04/22/20 20:41 04/22/20 20:42 04/22/20 20:43 Temperature Pulse Rate 84 84 Respiratory Rate 28 H 27 H Blood Pressure Pulse Oximetry 95 96 04/22/20 20:48 04/22/20 22:00 04/23/20 00:10 Temperature 36.7 C Pulse Rate 83 86 80 Respiratory Rate 26 H 24 H 33 H Blood Pressure 117/42 L Pulse Oximetry 97 94 04/23/20 02:16 04/23/20 02:21 04/23/20 05:30 Temperature 36.3 C L Pulse Rate 69 71 83 Respiratory Rate 23 H 20 20 Blood Pressure 117/49 L Pulse Oximetry 94 95 04/23/20 07:27 04/23/20 07:33 04/23/20 07:47 Temperature Pulse Rate 83 84 74 Respiratory Rate 24 H 24 H 25 H Blood Pressure Pulse Oximetry 95 04/23/20 09:21 04/23/20 09:35 Temperature Pulse Rate 87 Respiratory Rate Blood Pressure Pulse Oximetry 94 Intake/Output Intake/Output: Intake & Output 04/20/20 04/21/20 04/22/20 04/23/20 23:59 23:59 23:59 23:59 Intake Total 2390 2470 1496 630 Output Total 1650 1675 1525 Balance 740 795 -29 630 Meds/Results Medications: Active Medications Generic Name Dose Route Start Last Admin Trade Name Freq PRN Reason Stop Dose Admin Acetaminophen 650 mg 04/16/20 15:06 Tylenol Tablet PO Q4H PRN Mild Pain (1-3) or Fever Acetaminophen/Codeine Phosphate 1 tab 04/17/20 02:43 04/22/20 17:42 Tylenol #3 PO 1 tab Q6H PRN Administration Back Pain Albuterol 5 mg 04/16/20 20:00 04/23/20 07:32 Albuterol Sulf Neb 2.5mg/0.5ml INHALATION 5 mg Q6HRT YINKA Administration Alprazolam 0.25 mg 04/19/20 15:55 04/22/20 20:23 Xanax PO 0.25 mg TID PRN Administration Anxiety Donepezil HCl 10 mg 04/17/20 09:00 04/23/20 09:21 Aricept PO 10 mg DAILY YINKA Administration Doxycycline Hyclate 100 mg 04/17/20 12:30 04/23/20 09:21
--- NOTE | 2020-04-23 12:47 | PM.IMPN ---
Progress Note: A&P Assessment and Plan (1) Respiratory failure, [id number]: Qualifiers: Respiratory failure complication: hypoxia and hypercapnia Qualified Code(s): J96.21 - Acute and chronic respiratory failure with hypoxia; J96.22 - Acute and chronic respiratory failure with hypercapnia Code(s): J96.20 - Acute and chronic respiratory failure, unspecified whether with hypoxia or hypercapnia Status: Acute Assessment and Plan: -----likely due to COPD exacerbation but cannot rule out a small component of CHF. hopeful discharge on wednesday cxr still shows pleural effusion and pneumonia 84 year old male with a past medical history of critical aortic stenosis, atrial fibrillation, diastolic congestive heart failure, COPD and dementia who presented to the ER with shortness of breath That is been worse for the last 2 days. The patient is on 2 L of oxygen at home but had to turned up to 2.5 L on Wednesday. Gradually improving, today patient is required constant BiPAP, however repeat chest x-ray shows persistent pleural effusion and pneumonia, increased patient Lasix 40 mg IV b.i.d. for two dose and fluid restriction to 1500 cc per day, which did improve his clinicall symptoms however patient has significant aortic stenosis will reduce significant diuresing, seen by ladle repairman recommending thoracentesis to reduce pleural effusion, will hold Xarelto and paracentesis scheduled 04/25, will continue PT OT, will continue to monitor (2) Acute exacerbation of chronic obstructive airways disease: Code(s): J44.1 - Chronic obstructive pulmonary disease with (acute) exacerbation Status: Acute Assessment and Plan: -----Continue IV Solu-Medrol and nebulizer treatments.iv rocephin and oral doxycycline, will taper Solu-Medrol as patient's symptom improve. (3) Acute on chronic diastolic CHF (congestive heart failure): Code(s): I50.33 - Acute on chronic diastolic (congestive) heart failure Status: Acute Assessment and Plan: -----continue Lasix 40 mg IV daily (4) Severe aortic stenosis: Code(s): I35.0 - Nonrheumatic aortic (valve) stenosis Status: Acute Assessment and Plan: -----patient has critical aortic stenosis that he is planning to get repair later this month at [facility]. needs to get stable for surgery (5) Dementia: Code(s): F03.90 - Unspecified dementia without behavioral disturbance Status: Acute Assessment and Plan: -----continue home medications. It sounds like the patient's memory varies. Subjective Date/time seen: 04/23/2020 12:47 Interval history: 04/23/2020 12:55 84 year old male with a past medical history of critical aortic stenosis, atrial fibrillation, diastolic congestive heart failure, COPD and dementia who presented to the ER with shortness of breath That is been worse for the last 2 days. The patient is on 2 L of oxygen at home but had to turned up to 2.5 L on Wednesday. Gradually improving, today patient is required constant BiPAP, however repeat chest x-ray shows persistent pleural effusion and pneumonia, increased patient Lasix 40 mg IV b.i.d. for two dose and fluid restriction to 1500 cc per day, which did improve his clinicall symptoms however patient has significant aortic stenosis will reduce significant diuresing, seen by ladle repairman recommending thoracentesis to reduce pleural effusion, will hold Xarelto and paracentesis scheduled 04/25, will continue PT OT, will continue to monitor Review of Systems Review of Systems: All systems reviewed & are unremarkable except as noted in HPI and below Exam Narrative: Exam Narrative: moderately obese Const: General: comfortable and no acute distress HENMT: General nose exam: Normal nares present Mouth: Yes moist mucous membranes Eyes: General: appearance normal, both eyes and all related struct
[2020-04-23] MEDS: acetaZOLAMIDE SODIUM FOR INJ 500 MG VIAL 250 MG IV PUSH (14:00)
[2020-04-23] MEDS: ALPRAZolam 0.25 MG TABLET PO (19:50)
[2020-04-23] MEDS: traZODone HCL 50 MG TABLET 200 MG PO (19:50)
[2020-04-24] VITALS (20 sets, daily range): BP systolic 100–112; BP diastolic 50–60; PULSE 65–98; RESP 18–33; TEMP 36.1–36.6; O2SAT 92–100
[2020-04-24] MEDS: ALBUTEROL SULFATE NEB 2.5 MG/0.5 ML INH 5 MG INHALATION ×4 (01:58→20:16)
[2020-04-24] MEDS: IPRATROPIUM BR 0.02% INH SOLN 0.5 MG/2.5 ML VIAL INHALATION ×4 (01:58→20:19)
[2020-04-24 05:33] LABS: Anion Gap 5 mmol/L (8-16); Blood Urea Nitrogen 49 mg/dL (9-20); Calcium 8.8 mg/dL (8.4-10.2); Carbon Dioxide 37 mmol/L (22-30); Chloride 92 mmol/L (98-107); Estimated CRCL calculation 59 ml/min; Estimated Glomerular Filt Rate > 60; Glucose 116 mg/dL (75-110); Potassium 3.9 mmol/L (3.4-5.0); Sodium 134 mmol/L (137-145)
[2020-04-24] MEDS: DOXYCYCLINE HYCLATE 100 MG TABLET PO ×2 (08:38→22:00)
[2020-04-24] MEDS: POTASSIUM CHLORIDE 20 MEQ TABLET.ER PO (08:38)
[2020-04-24] MEDS: DONEPEZIL HCL 10 MG TABLET PO (08:38)
[2020-04-24] MEDS: FLECAINIDE ACETATE 100 MG TABLET PO ×2 (08:38→18:03)
[2020-04-24] MEDS: PRAVASTATIN SODIUM 20 MG TABLET 80 MG PO (08:38)
[2020-04-24] MEDS: FINASTERIDE 5 MG TABLET PO (08:39)
[2020-04-24] MEDS: acetaZOLAMIDE SODIUM FOR INJ 500 MG VIAL 250 MG IV PUSH (08:39)
[2020-04-24] MEDS: FUROSEMIDE INJ 40 MG/4 ML VIAL IV PUSH (08:40)
[2020-04-24] MEDS: ALPRAZolam 0.25 MG TABLET PO (08:43)
--- NOTE | 2020-04-24 13:47 | PCPTNOTE ---
The PT treatment was unable to be completed today. Patient out of room for procedure. Will continue per Plan of Care frequency and duration.
--- NOTE | 2020-04-24 13:48 | PM.IMPN ---
Progress Note: A&P Assessment and Plan (1) Respiratory failure, [id number]: Qualifiers: Respiratory failure complication: hypoxia and hypercapnia Qualified Code(s): J96.21 - Acute and chronic respiratory failure with hypoxia; J96.22 - Acute and chronic respiratory failure with hypercapnia Code(s): J96.20 - Acute and chronic respiratory failure, unspecified whether with hypoxia or hypercapnia Status: Acute Assessment and Plan: -----likely due to COPD exacerbation but cannot rule out a small component of CHF. hopeful discharge on wednesday cxr still shows pleural effusion and pneumonia 04/24/20 13:48 84 year old male with a past medical history of critical aortic stenosis, atrial fibrillation, diastolic congestive heart failure, COPD and dementia who presented to the ER with shortness of breath That is been worse for the last 2 days. The patient is on 2 L of oxygen at home but had to turned up to 2.5 L on Wednesday. Gradually improving, today patient is required constant BiPAP, however repeat chest x-ray shows persistent pleural effusion and pneumonia, increased patient Lasix 40 mg IV b.i.d. for two dose and fluid restriction to 1500 cc per day, which did improve his clinicall symptoms however patient has significant aortic stenosis will reduce significant diuresing, seen by statement processor recommending thoracentesis to reduce pleural effusion, will hold Xarelto and paracentesis scheduled for today and will follow up and further recommendation to follow, Patient is present in the room, will continue PT OT, will continue to monitor (2) Acute exacerbation of chronic obstructive airways disease: Code(s): J44.1 - Chronic obstructive pulmonary disease with (acute) exacerbation Status: Acute Assessment and Plan: -----Continue IV Solu-Medrol and nebulizer treatments.iv rocephin and oral doxycycline, patient is a completed course of IV Solu-Medrol is being DC. (3) Acute on chronic diastolic CHF (congestive heart failure): Code(s): I50.33 - Acute on chronic diastolic (congestive) heart failure Status: Acute Assessment and Plan: -----continue Lasix 40 mg IV daily (4) Severe aortic stenosis: Code(s): I35.0 - Nonrheumatic aortic (valve) stenosis Status: Acute Assessment and Plan: -----patient has critical aortic stenosis that he is planning to get repair later this month at [facility]. needs to get stable for surgery (5) Dementia: Code(s): F03.90 - Unspecified dementia without behavioral disturbance Status: Acute Assessment and Plan: -----continue home medications. It sounds like the patient's memory varies. Additional Plan Subjective Date/time seen: 04/24/20 13:48 84 year old male with a past medical history of critical aortic stenosis, atrial fibrillation, diastolic congestive heart failure, COPD and dementia who presented to the ER with shortness of breath That is been worse for the last 2 days. The patient is on 2 L of oxygen at home but had to turned up to 2.5 L on Wednesday. Gradually improving, today patient is required constant BiPAP, however repeat chest x-ray shows persistent pleural effusion and pneumonia, increased patient Lasix 40 mg IV b.i.d. for two dose and fluid restriction to 1500 cc per day, which did improve his clinicall symptoms however patient has significant aortic stenosis will reduce significant diuresing, seen by statement processor recommending thoracentesis to reduce pleural effusion, will hold Xarelto and paracentesis scheduled for today and will follow up and further recommendation to follow, Patient is present in the room, will continue PT OT, will continue to monitor Review of Systems Review of Systems: All systems reviewed & are unremarkable except as noted in HPI and below Exam Narrative: Exam Narrative: moderately obese Const: General: comfor
[2020-04-24 14:29] LABS: pH Pleural Fluid 7.417 (7.210-7.500)
[2020-04-24 14:44] LABS: Pleural fluid source Pleural fluid
[2020-04-24 15:51] LABS: Appearance Pleural Fluid Hazy (Clear); Color Pleural Fluid Yellow (Colorless); Nucleated Cell Pleural Fluid 34 /uL (0-1000)
[2020-04-24 15:52] LABS: Lymphocytes Pleural Fluid 40 %; Macrophages Pleural Fluid 29 %; Mesothelial Cells Pleural Flui 1 %; Monocytes Pleural Fluid 9 %; Neutrophils Pleural Fluid 21 % (0-25); RBC Pleural Fluid 949 /uL (0-0)
--- NOTE | 2020-04-24 16:44 | PM.PNPUL ---
Progress Note: A&P Assessment and Plan (1) Acute on chronic diastolic CHF (congestive heart failure): Code(s): I50.33 - Acute on chronic diastolic (congestive) heart failure Status: Acute (2) Pleural effusion: Code(s): J90 - Pleural effusion, not elsewhere classified Status: Acute Assessment and Plan: Likely due to CHF. - will order second U/S guided thoracenteis. He continues to have moderate right pleural effusion with atelectesis. Needs another 2604-6766 cc removal. - continue lasix + diamox - (3) Acute exacerbation of chronic obstructive airways disease: Code(s): J44.1 - Chronic obstructive pulmonary disease with (acute) exacerbation Status: Acute Assessment and Plan: Needs Trilogy Ventilator. I will order this for him today. Nocturnal ventilation is needed. Home BIPAP is due to severity of condition. Primary cause of hypercapnea is COPD causing chronic respiratory failure Subjective Date/time seen: 04/24/20 16:44 Interval history: Had thoracenteiss with 1000 cc removal. CXR still showing moderate right pleural effusion with atelectasis. He is still feeling short of breath and requiring oxygen. Fluid consistent with transudate likely from CHF but aggressive diuresis alone is not removing the fluid. Review of Systems Review of Systems: All systems reviewed & are unremarkable except as noted in HPI and below Exam Const: General: no acute distress Eyes: General: appearance normal, both eyes and all related structures Neck: Neck: supple Resp: Auscultation: diminished lung sounds Other: R>L Cardio: Rate: regular rate Rhythm: regular rhythm Heart sounds: Murmur heart sound present Other: 2/6 systolic murmur in aortic area with almost absent S2 Skin: General skin exam: normal color and no rashes or lesions noted Neuro: Cognition (Neuro): normal cognition Speech: normal speech Extrem: General: pedal edema bilaterally Psych: Mental Status: mental status grossly normal Affect: normal affect Objective Data Vital Signs Vital Signs: Vital Signs - 24 hr 04/23/20 18:13 04/23/20 20:04 04/23/20 20:06 Temperature Pulse Rate 79 78 78 Respiratory Rate 34 H Blood Pressure Pulse Oximetry 97 04/23/20 20:11 04/23/20 21:03 04/23/20 22:00 Temperature 36.0 C L Pulse Rate 73 74 77 Respiratory Rate 28 H 30 H 20 Blood Pressure 115/50 L Pulse Oximetry 93 97 04/24/20 01:58 04/24/20 02:00 04/24/20 02:04 Temperature Pulse Rate 67 68 67 Respiratory Rate 26 H 24 H 33 H Blood Pressure Pulse Oximetry 95 04/24/20 06:00 04/24/20 07:39 04/24/20 07:40 Temperature 36.2 C L Pulse Rate 73 80 78 Respiratory Rate 18 22 H Blood Pressure 112/50 L Pulse Oximetry 99 97 04/24/20 07:50 04/24/20 08:38 04/24/20 13:20 Temperature Pulse Rate 78 75 75 Respiratory Rate 22 H 22 H Blood Pressure Pulse Oximetry 04/24/20 13:21 04/24/20 13:30 04/24/20 14:33 Temperature Pulse Rate 68 76 79 Respiratory Rate 22 H 21 H 24 H Blood Pressure 100/50 L Pulse Oximetry 95 95 04/24/20 14:34 Temperature Pulse Rate 70 Respiratory Rate 22 H Blood Pressure 110/60 Pulse Oximetry 100 Intake/Output Intake/Output: Intake & Output 04/21/20 04/22/20 04/23/20 04/24/20 23:59 23:59 23:59 23:59 Intake Total 2470 1496 1550 630 Output Total 1675 5585 572 3109 Balance 795 -29 1275 -670 Meds/Results Medications: Active Medications Generic Name Dose Route Start Last Admin Trade Name Freq PRN Reason Stop Dose Admin Acetaminophen 650 mg 04/16/20 15:06 Tylenol Tablet PO Q4H PRN Mild Pain (1-3) or Fever Acetaminophen/Codeine Phosphate 1 tab 04/17/20 02:43 04/24/20 00:11 Tylenol #3 PO 1 tab Q6H PRN Administration Back Pain Acetazolamide Sodium 250 mg 04/23/20 12:30 04/24/20 08:39 Diamox Inj IV PUSH 250 mg QAM YINKA Administration Albuterol 5 mg 04/16/20 20:00 04/24/20 13:2
[2020-04-24 21:37] LABS: Albumin Level 3.1 g/dL (3.5-5.1); Cholesterol 116 mg/dL (0-200); Glucose 110 mg/dL (75-110); Lactate Dehydrogenase 407 U/L (313-618); Triglycerides 139 mg/dL (<150)
[2020-04-24] MEDS: traZODone HCL 50 MG TABLET 200 MG PO (22:00)
[2020-04-25] VITALS (15 sets, daily range): BP systolic 99–120; BP diastolic 52–65; PULSE 64–88; RESP 12–30; TEMP 36.4–36.7; O2SAT 96–100
[2020-04-25] MEDS: ALBUTEROL SULFATE NEB 2.5 MG/0.5 ML INH 5 MG INHALATION ×4 (03:04→19:46)
[2020-04-25] MEDS: IPRATROPIUM BR 0.02% INH SOLN 0.5 MG/2.5 ML VIAL INHALATION ×4 (03:04→19:47)
[2020-04-25 06:10] LABS: Anion Gap 7 mmol/L (8-16); Blood Urea Nitrogen 48 mg/dL (9-20); Calcium 8.9 mg/dL (8.4-10.2); Carbon Dioxide 33 mmol/L (22-30); Chloride 96 mmol/L (98-107); Estimated CRCL calculation 63 ml/min; Estimated Glomerular Filt Rate > 60; Glucose 119 mg/dL (75-110); Sodium 136 mmol/L (137-145)
[2020-04-25] MEDS: PRAVASTATIN SODIUM 20 MG TABLET 80 MG PO (08:23)
[2020-04-25] MEDS: FLECAINIDE ACETATE 100 MG TABLET PO ×2 (08:24→17:43)
[2020-04-25] MEDS: FUROSEMIDE INJ 40 MG/4 ML VIAL IV PUSH (08:24)
[2020-04-25] MEDS: POTASSIUM CHLORIDE 20 MEQ TABLET.ER PO (08:24)
[2020-04-25] MEDS: DOXYCYCLINE HYCLATE 100 MG TABLET PO ×2 (08:24→20:19)
[2020-04-25] MEDS: FINASTERIDE 5 MG TABLET PO (08:24)
[2020-04-25] MEDS: DONEPEZIL HCL 10 MG TABLET PO (08:24)
[2020-04-25] MEDS: acetaZOLAMIDE SODIUM FOR INJ 500 MG VIAL 250 MG IV PUSH (08:41)
--- NOTE | 2020-04-25 13:36 | PM.IMPN ---
Progress Note: A&P Assessment and Plan (1) Respiratory failure, [id number]: Qualifiers: Respiratory failure complication: hypoxia and hypercapnia Qualified Code(s): J96.21 - Acute and chronic respiratory failure with hypoxia; J96.22 - Acute and chronic respiratory failure with hypercapnia Code(s): J96.20 - Acute and chronic respiratory failure, unspecified whether with hypoxia or hypercapnia Status: Acute Assessment and Plan: -----likely due to COPD exacerbation but cannot rule out a small component of CHF. hopeful discharge on wednesday cxr still shows pleural effusion and pneumonia 04/25/20 13:36 84 year old male with a past medical history of critical aortic stenosis, atrial fibrillation, diastolic congestive heart failure, COPD and dementia who presented to the ER with shortness of breath That is been worse for the last 2 days. The patient is on 2 L of oxygen at home but had to turned up to 2.5 L on Wednesday. Gradually improving, today patient is required constant BiPAP, however repeat chest x-ray shows persistent pleural effusion and pneumonia, increased patient Lasix 40 mg IV b.i.d. for two dose and fluid restriction to 1500 cc per day, which did improve his clinicall symptoms however patient has significant aortic stenosis reduced significant diuresing, seen by shelter supervisor recommending thoracentesis to reduce pleural effusion, and held Xarelto and patient had thoracentesis on 04/24 and 1000 cc was removed suspected transudate most likely secondary to CHF, patient was seen by shelter supervisor again and ordered under the thoracentesis and 600 cc was removed, shelter supervisor also recommended trilogy for nighttime ventilation, to improve his oxygenation, was removed, patient states is feeling much better able to breathe little better, the chest pain shortness of breath palpitation fever or chills (2) Acute exacerbation of chronic obstructive airways disease: Code(s): J44.1 - Chronic obstructive pulmonary disease with (acute) exacerbation Status: Acute Assessment and Plan: -----Continue IV Solu-Medrol and nebulizer treatments.iv rocephin and oral doxycycline, patient is a completed course of IV Solu-Medrol is being DC. (3) Acute on chronic diastolic CHF (congestive heart failure): Code(s): I50.33 - Acute on chronic diastolic (congestive) heart failure Status: Acute Assessment and Plan: -----continue Lasix 40 mg IV daily (4) Severe aortic stenosis: Code(s): I35.0 - Nonrheumatic aortic (valve) stenosis Status: Acute Assessment and Plan: -----patient has critical aortic stenosis that he is planning to get repair later this month at [facility]. needs to get stable for surgery (5) Dementia: Code(s): F03.90 - Unspecified dementia without behavioral disturbance Status: Acute Assessment and Plan: -----continue home medications. It sounds like the patient's memory varies. Subjective Date/time seen: 04/25/20 13:36 84 year old male with a past medical history of critical aortic stenosis, atrial fibrillation, diastolic congestive heart failure, COPD and dementia who presented to the ER with shortness of breath That is been worse for the last 2 days. The patient is on 2 L of oxygen at home but had to turned up to 2.5 L on Wednesday. Gradually improving, today patient is required constant BiPAP, however repeat chest x-ray shows persistent pleural effusion and pneumonia, increased patient Lasix 40 mg IV b.i.d. for two dose and fluid restriction to 1500 cc per day, which did improve his clinicall symptoms however patient has significant aortic stenosis reduced significant diuresing, seen by shelter supervisor recommending thoracentesis to reduce pleural effusion, and held Xarelto and patient had thoracentesis on 04/24 and 1000 cc was removed suspected transudate most likely secondary to CHF, patient was seen
--- NOTE | 2020-04-25 16:32 | PCOTNOTE ---
The patient treatment was not able to be completed on 04/25/2020. Will plan to continue treatment per plan of care.
[2020-04-25] MEDS: traZODone HCL 50 MG TABLET 200 MG PO (20:19)
[2020-04-26] VITALS (16 sets, daily range): BP systolic 104–106; BP diastolic 50–58; PULSE 67–110; RESP 16–20; TEMP 36.8–37.2; O2SAT 92–99
[2020-04-26] MEDS: IPRATROPIUM BR 0.02% INH SOLN 0.5 MG/2.5 ML VIAL INHALATION ×4 (02:22→20:28)
[2020-04-26] MEDS: ALBUTEROL SULFATE NEB 2.5 MG/0.5 ML INH 5 MG INHALATION ×4 (02:22→20:28)
[2020-04-26 05:31] LABS: Anion Gap 6 mmol/L (8-16); Blood Urea Nitrogen 40 mg/dL (9-20); Calcium 8.5 mg/dL (8.4-10.2); Carbon Dioxide 33 mmol/L (22-30); Chloride 96 mmol/L (98-107); Estimated CRCL calculation 63 ml/min; Estimated Glomerular Filt Rate > 60; Glucose 187 mg/dL (75-110); Potassium 3.7 mmol/L (3.4-5.0); Sodium 135 mmol/L (137-145)
[2020-04-26] MEDS: DOXYCYCLINE HYCLATE 100 MG TABLET PO ×2 (08:49→20:15)
[2020-04-26] MEDS: FLECAINIDE ACETATE 100 MG TABLET PO ×2 (08:49→17:13)
[2020-04-26] MEDS: PRAVASTATIN SODIUM 20 MG TABLET 80 MG PO (08:49)
[2020-04-26] MEDS: DONEPEZIL HCL 10 MG TABLET PO (08:49)
[2020-04-26] MEDS: POTASSIUM CHLORIDE 20 MEQ TABLET.ER PO (08:49)
[2020-04-26] MEDS: FUROSEMIDE INJ 40 MG/4 ML VIAL IV PUSH (08:49)
[2020-04-26] MEDS: FINASTERIDE 5 MG TABLET PO (08:49)
[2020-04-26] MEDS: acetaZOLAMIDE SODIUM FOR INJ 500 MG VIAL 250 MG IV PUSH (08:50)
[2020-04-26] MEDS: WATER, STERILE FOR INJECTION 10 ML VIAL XX (08:55)
--- NOTE | 2020-04-26 11:04 | PM.PNPUL ---
Progress Note: A&P Assessment and Plan (1) Acute on chronic diastolic CHF (congestive heart failure): Code(s): I50.33 - Acute on chronic diastolic (congestive) heart failure Status: Acute (2) Pleural effusion: Code(s): J90 - Pleural effusion, not elsewhere classified Status: Acute Assessment and Plan: Likely due to CHF. - mostly resolved with second thoracenteisis - continue lasix 40 mg IV bid along with diamox 250 mg IV daily for few more days - still has excess edema and fluid on board (3) Acute exacerbation of chronic obstructive airways disease: Code(s): J44.1 - Chronic obstructive pulmonary disease with (acute) exacerbation Status: Acute Assessment and Plan: Trilogy order with settings - I highly recommend that he go to rehab facility as best chance for possible recovery or consider [facility] placement Subjective Date/time seen: 04/26/20 11:04 Interval history: Feeling better. Had second thoracenteis removed an additional 650 cc with improved CXR and only minimal RLL atelectesis/effusion post op. His overall edema in upper and lower extremities are improving and daily weight continues to go down which is good. He's about 10 kg night clerk than kaylee weights. He's still very weak though Review of Systems Review of Systems: All systems reviewed & are unremarkable except as noted in HPI and below Exam Const: General: no acute distress Eyes: General: appearance normal, both eyes and all related structures Neck: Neck: supple and no JVD Resp: Effort & Inspection: normal respiratory effort Auscultation: clear to auscultation bilaterally Cardio: Rate: regular rate Rhythm: regular rhythm Heart sounds: Murmur heart sound present systolic Other: aortic area with absent S2 Skin: General skin exam: normal color and no rashes or lesions noted Neuro: Cognition (Neuro): normal cognition Speech: normal speech Extrem: General: edema and pedal edema Psych: Mental Status: mental status grossly normal Affect: normal affect Objective Data Vital Signs Vital Signs: Vital Signs - 24 hr 04/25/20 13:36 04/25/20 13:45 04/25/20 14:00 Temperature 36.4 C L Pulse Rate 80 79 82 Respiratory Rate 18 18 16 Blood Pressure 110/60 Pulse Oximetry 96 04/25/20 17:43 04/25/20 19:47 04/25/20 19:56 Temperature Pulse Rate 79 77 79 Respiratory Rate 18 18 Blood Pressure Pulse Oximetry 04/25/20 20:25 04/25/20 21:54 04/26/20 02:22 Temperature 36.7 C Pulse Rate 80 66 77 Respiratory Rate 12 22 H 20 Blood Pressure 104/52 L Pulse Oximetry 99 96 96 04/26/20 02:30 04/26/20 06:00 04/26/20 08:20 Temperature 36.8 C Pulse Rate 75 81 85 Respiratory Rate 20 16 20 Blood Pressure 105/52 L Pulse Oximetry 99 04/26/20 08:30 04/26/20 08:49 Temperature Pulse Rate 83 81 Respiratory Rate 20 Blood Pressure Pulse Oximetry 95 Intake/Output Intake/Output: Intake & Output 04/23/20 04/24/20 04/25/20 04/26/20 23:59 23:59 23:59 23:59 Intake Total 1550 1245 1310 345 Output Total 275 1300 1275 860 Balance 1275 55 35 -515 Meds/Results Medications: Active Medications Generic Name Dose Route Start Last Admin Trade Name Freq PRN Reason Stop Dose Admin Acetaminophen 650 mg 04/16/20 15:06 Tylenol Tablet PO Q4H PRN Mild Pain (1-3) or Fever Acetaminophen/Codeine Phosphate 1 tab 04/17/20 02:43 04/25/20 21:55 Tylenol #3 PO 1 tab Q6H PRN Administration Back Pain Acetazolamide Sodium 250 mg 04/23/20 12:30 04/26/20 08:50 Diamox Inj IV PUSH 250 mg QAM YINKA Administration Albuterol 5 mg 04/16/20 20:00 04/26/20 08:28 Albuterol Sulf Neb 2.5mg/0.5ml INHALATION 5 mg Q6HRT YINKA Administration Alprazolam 0.25 mg 04/19/20 15:55 04/24/20 08:43 Xanax PO 0.25 mg TID PRN Administration Anxiety Donepezil HCl 10 mg 04/17/20 09:00 04/26/20 08:49 Aricept PO 10 mg DAILY [facility] Ad
--- NOTE | 2020-04-26 14:08 | PM.IMPN ---
Progress Note: A&P Assessment and Plan (1) Respiratory failure, [id number]: Qualifiers: Respiratory failure complication: hypoxia and hypercapnia Qualified Code(s): J96.21 - Acute and chronic respiratory failure with hypoxia; J96.22 - Acute and chronic respiratory failure with hypercapnia Code(s): J96.20 - Acute and chronic respiratory failure, unspecified whether with hypoxia or hypercapnia Status: Acute Assessment and Plan: -----likely due to COPD exacerbation but cannot rule out a small component of CHF. hopeful discharge on wednesday cxr still shows pleural effusion and pneumonia 04/26/20 14:08 84 year old male with a past medical history of critical aortic stenosis, atrial fibrillation, diastolic congestive heart failure, COPD and dementia who presented to the ER with shortness of breath That is been worse for the last 2 days. The patient is on 2 L of oxygen at home but had to turned up to 2.5 L on Wednesday. Gradually improving, today patient is required constant BiPAP, however repeat chest x-ray shows persistent pleural effusion and pneumonia, increased patient Lasix 40 mg IV b.i.d. for two dose and fluid restriction to 1500 cc per day, which did improve his clinicall symptoms however patient has significant aortic stenosis reduced significant diuresing, seen by recreation officer recommending thoracentesis to reduce pleural effusion, and held Xarelto and patient had thoracentesis on 04/24 and 1000 cc was removed suspected transudate most likely secondary to CHF, patient was seen by recreation officer again on 04/25 and ordered under the thoracentesis and 600 cc was removed, recreation officer also recommended trilogy for BIPAP ventilation, to improve his oxygenation, today again patient was seen by recreation officer patient is much improved and recommended to continue IV Lasix 40 mg b.i.d. to help reduce CHF, recreation officer also recommending the patient will benefit going into detention or SNF to continue use improvement, will have a PT OT evaluate the patient and encouraged the patient to participate. (2) Acute exacerbation of chronic obstructive airways disease: Code(s): J44.1 - Chronic obstructive pulmonary disease with (acute) exacerbation Status: Acute Assessment and Plan: -----Continue IV Solu-Medrol and nebulizer treatments.iv rocephin and oral doxycycline, patient is a completed course of IV Solu-Medrol is being DC. (3) Acute on chronic diastolic CHF (congestive heart failure): Code(s): I50.33 - Acute on chronic diastolic (congestive) heart failure Status: Acute Assessment and Plan: -----continue Lasix 40 mg IV daily (4) Severe aortic stenosis: Code(s): I35.0 - Nonrheumatic aortic (valve) stenosis Status: Acute Assessment and Plan: -----patient has critical aortic stenosis that he is planning to get repair later this month at [facility]. needs to get stable for surgery (5) Dementia: Code(s): F03.90 - Unspecified dementia without behavioral disturbance Status: Acute Assessment and Plan: -----continue home medications. It sounds like the patient's memory varies. Subjective Date/time seen: 04/26/20 14:08 84 year old male with a past medical history of critical aortic stenosis, atrial fibrillation, diastolic congestive heart failure, COPD and dementia who presented to the ER with shortness of breath That is been worse for the last 2 days. The patient is on 2 L of oxygen at home but had to turned up to 2.5 L on Wednesday. Gradually improving, today patient is required constant BiPAP, however repeat chest x-ray shows persistent pleural effusion and pneumonia, increased patient Lasix 40 mg IV b.i.d. for two dose and fluid restriction to 1500 cc per day, which did improve his clinicall symptoms however patient has significant aortic stenosis reduced significant diuresing, seen by recreation officer julian
[2020-04-26] MEDS: traZODone HCL 50 MG TABLET 200 MG PO (20:14)
[2020-04-26] MEDS: ALPRAZolam 0.25 MG TABLET PO (20:15)
[2020-04-27] VITALS (17 sets, daily range): BP systolic 102–108; BP diastolic 40–58; PULSE 63–105; RESP 18–30; TEMP 36.5–36.7; O2SAT 93–97
[2020-04-27] MEDS: ALBUTEROL SULFATE NEB 2.5 MG/0.5 ML INH 5 MG INHALATION ×4 (01:11→20:53)
[2020-04-27] MEDS: IPRATROPIUM BR 0.02% INH SOLN 0.5 MG/2.5 ML VIAL INHALATION ×4 (01:12→20:53)
[2020-04-27 07:20] LABS: Glucose Pleural Fluid 121 mg/dL; LDH Pleural Fluid 74 U/L; Total Protein Pleural Fluid 3.3 g/dL
[2020-04-27] MEDS: FUROSEMIDE INJ 40 MG/4 ML VIAL IV PUSH (08:25)
[2020-04-27] MEDS: FINASTERIDE 5 MG TABLET PO (08:26)
[2020-04-27] MEDS: DOXYCYCLINE HYCLATE 100 MG TABLET PO (08:26)
[2020-04-27] MEDS: POTASSIUM CHLORIDE 20 MEQ TABLET.ER PO (08:26)
[2020-04-27] MEDS: DONEPEZIL HCL 10 MG TABLET PO (08:26)
[2020-04-27] MEDS: PRAVASTATIN SODIUM 20 MG TABLET 80 MG PO (08:26)
[2020-04-27] MEDS: FLECAINIDE ACETATE 100 MG TABLET PO ×2 (08:26→16:06)
[2020-04-27] MEDS: acetaZOLAMIDE SODIUM FOR INJ 500 MG VIAL 250 MG IV PUSH (08:27)
[2020-04-27 08:41] LABS: Anion Gap 5 mmol/L (8-16); Blood Urea Nitrogen 32 mg/dL (9-20); Calcium 8.4 mg/dL (8.4-10.2); Carbon Dioxide 31 mmol/L (22-30); Chloride 101 mmol/L (98-107); Estimated CRCL calculation 69 ml/min; Estimated Glomerular Filt Rate > 60; Glucose 118 mg/dL (75-110); Potassium 3.5 mmol/L (3.4-5.0); Sodium 137 mmol/L (137-145)
[2020-04-27] MEDS: WATER, STERILE FOR INJECTION 10 ML VIAL XX (13:02)
--- NOTE | 2020-04-27 13:36 | PM.IMPN ---
Progress Note: A&P Assessment and Plan (1) Respiratory failure, [id number]: Qualifiers: Respiratory failure complication: hypoxia and hypercapnia Qualified Code(s): J96.21 - Acute and chronic respiratory failure with hypoxia; J96.22 - Acute and chronic respiratory failure with hypercapnia Code(s): J96.20 - Acute and chronic respiratory failure, unspecified whether with hypoxia or hypercapnia Status: Acute Assessment and Plan: -----likely due to COPD exacerbation but cannot rule out a small component of CHF. hopeful discharge on wednesday cxr still shows pleural effusion and pneumonia 04/27/20 13:36 84 year old male with a past medical history of critical aortic stenosis, atrial fibrillation, diastolic congestive heart failure, COPD and dementia who presented to the ER with shortness of breath That is been worse for the last 2 days. The patient is on 2 L of oxygen at home but had to turned up to 2.5 L on Wednesday. Gradually improving, today patient is required constant BiPAP, however repeat chest x-ray shows persistent pleural effusion and pneumonia, increased patient Lasix 40 mg IV b.i.d. for two dose and fluid restriction to 1500 cc per day, which did improve his clinicall symptoms however patient has significant aortic stenosis reduced significant diuresing, seen by circular knife machine cutter recommending thoracentesis to reduce pleural effusion, and held Xarelto and patient had thoracentesis on 04/24 and 1000 cc was removed suspected transudate most likely secondary to CHF, patient was seen by circular knife machine cutter again on 04/25 and ordered under the thoracentesis and 600 cc was removed, circular knife machine cutter also recommended trilogy for BIPAP ventilation, to improve his oxygenation, on 04/26 again patient was seen by circular knife machine cutter patient is much improved and recommended to continue IV Lasix 40 mg b.i.d. to help reduce CHF, circular knife machine cutter also recommending the patient will benefit going into correction or SNF to continue use improvement, will have a PT OT evaluate the patient and encouraged the patient to participate. will plan for discharge possibly on Wednesday to correction however patient is scheduled surgical repair of aortic stenosis (2) Acute exacerbation of chronic obstructive airways disease: Code(s): J44.1 - Chronic obstructive pulmonary disease with (acute) exacerbation Status: Acute Assessment and Plan: -----Continue IV Solu-Medrol and nebulizer treatments.iv rocephin and oral doxycycline, patient is a completed course of IV Solu-Medrol is being DC. (3) Acute on chronic diastolic CHF (congestive heart failure): Code(s): I50.33 - Acute on chronic diastolic (congestive) heart failure Status: Acute Assessment and Plan: -----continue Lasix 40 mg IV daily (4) Severe aortic stenosis: Code(s): I35.0 - Nonrheumatic aortic (valve) stenosis Status: Acute Assessment and Plan: -----patient has critical aortic stenosis that he is planning to get repair later this month at [facility]. needs to get stable for surgery (5) Dementia: Code(s): F03.90 - Unspecified dementia without behavioral disturbance Status: Acute Assessment and Plan: -----continue home medications. It sounds like the patient's memory varies. Subjective Date/time seen: 04/27/20 13:36 84 year old male with a past medical history of critical aortic stenosis, atrial fibrillation, diastolic congestive heart failure, COPD and dementia who presented to the ER with shortness of breath That is been worse for the last 2 days. The patient is on 2 L of oxygen at home but had to turned up to 2.5 L on Wednesday. Gradually improving, today patient is required constant BiPAP, however repeat chest x-ray shows persistent pleural effusion and pneumonia, increased patient Lasix 40 mg IV b.i.d. for two dose and fluid restriction to 1500 cc per day, which did improve h
[2020-04-27] MEDS: ACETAMINOPHEN 325 MG TABLET 650 MG PO (18:15)
[2020-04-27] MEDS: ALPRAZolam 0.25 MG TABLET PO (18:15)
--- NOTE | 2020-04-27 18:52 | PM.PNPUL ---
Progress Note: A&P Assessment and Plan (1) Acute on chronic diastolic CHF (congestive heart failure): Code(s): I50.33 - Acute on chronic diastolic (congestive) heart failure Status: Acute (2) Pleural effusion: Code(s): J90 - Pleural effusion, not elsewhere classified Status: Acute Assessment and Plan: Likely due to CHF. - mostly resolved with second thoracenteisis - continue lasix 40 mg IV bid along with diamox 250 mg IV daily for few more days - still has excess edema and fluid on board (3) Acute exacerbation of chronic obstructive airways disease: Code(s): J44.1 - Chronic obstructive pulmonary disease with (acute) exacerbation Status: Acute Assessment and Plan: Trilogy ordered with settings. Would prefer he get started on it while still in hospital. - I highly recommend that he go to rehab facility as best chance for possible recovery or consider longterm placement (4) Severe aortic stenosis: Code(s): I35.0 - Nonrheumatic aortic (valve) stenosis Status: Acute Subjective Date/time seen: 04/27/20 18:52 Interval history: Continues to improve daily. Sitting up into chair comfortably Review of Systems Review of Systems: All systems reviewed & are unremarkable except as noted in HPI and below Exam Const: General: no acute distress Eyes: General: appearance normal, both eyes and all related structures Neck: Neck: supple and no JVD Resp: Effort & Inspection: normal respiratory effort Auscultation: clear to auscultation bilaterally Cardio: Rate: regular rate Rhythm: regular rhythm Heart sounds: Murmur heart sound present systolic Other: aortic area with absent S2 Skin: General skin exam: normal color and no rashes or lesions noted Neuro: Cognition (Neuro): normal cognition Speech: normal speech Extrem: General: edema and pedal edema Psych: Mental Status: mental status grossly normal Affect: normal affect Objective Data Vital Signs Vital Signs: Vital Signs - 24 hr 04/26/20 20:00 04/26/20 20:25 04/26/20 20:31 Temperature Pulse Rate 110 H 71 71 Respiratory Rate 20 20 Blood Pressure Pulse Oximetry 92 97 04/26/20 20:33 04/26/20 21:29 04/26/20 22:28 Temperature 37.2 C Pulse Rate 71 110 H 67 Respiratory Rate 20 20 20 Blood Pressure 104/58 L Pulse Oximetry 92 95 04/27/20 01:10 04/27/20 01:14 04/27/20 01:18 Temperature Pulse Rate 73 71 73 Respiratory Rate 20 20 20 Blood Pressure Pulse Oximetry 97 04/27/20 06:00 04/27/20 08:26 04/27/20 08:34 Temperature 36.5 C Pulse Rate 105 H 68 Respiratory Rate 18 Blood Pressure 108/52 L Pulse Oximetry 97 93 04/27/20 08:35 04/27/20 08:42 04/27/20 14:00 Temperature 36.7 C Pulse Rate 71 76 71 Respiratory Rate 20 20 18 Blood Pressure 102/40 L Pulse Oximetry 95 04/27/20 15:13 04/27/20 15:15 04/27/20 15:25 Temperature Pulse Rate 72 70 Respiratory Rate 20 20 Blood Pressure Pulse Oximetry 94 04/27/20 16:06 Temperature Pulse Rate 76 Respiratory Rate Blood Pressure Pulse Oximetry Intake/Output Intake/Output: Intake & Output 04/24/20 04/25/20 04/26/20 04/27/20 23:59 23:59 23:59 23:59 Intake Total 1245 1310 1085 1550 Output Total 1300 1275 860 625 Balance -55 35 225 925 Meds/Results Medications: Active Medications Generic Name Dose Route Start Last Admin Trade Name Freq PRN Reason Stop Dose Admin Acetaminophen 650 mg 04/16/20 15:06 04/27/20 18:15 Tylenol Tablet PO 650 mg Q4H PRN Administration Mild Pain (1-3) or Fever Acetazolamide Sodium 250 mg 04/23/20 12:30 04/27/20 08:27 Diamox Inj IV PUSH 250 mg QAM YINKA Administration Albuterol 5 mg 04/16/20 20:00 04/27/20 08:33 Albuterol Sulf Neb 2.5mg/0.5ml INHALATION 5 mg Q6HRT YINKA Administration Alprazolam 0.25 mg 04/19/20 15:55 04/27/20 18:15 Xanax PO 0.25 mg TID PRN Administration Anxiety Don
[2020-04-27] MEDS: traZODone HCL 50 MG TABLET 200 MG PO (20:50)
[2020-04-27 21:35] LABS: Glucose Point of Care 155 (65-105)
[2020-04-28] VITALS (18 sets, daily range): BP systolic 100–109; BP diastolic 44–60; PULSE 62–82; RESP 18–96; TEMP 36.2–36.4; O2SAT 94–99
[2020-04-28] MEDS: ACETAMINOPHEN 325 MG TABLET 650 MG PO ×3 (00:35→22:19)
[2020-04-28] MEDS: ALBUTEROL SULFATE NEB 2.5 MG/0.5 ML INH 5 MG INHALATION ×4 (02:34→20:34)
[2020-04-28] MEDS: IPRATROPIUM BR 0.02% INH SOLN 0.5 MG/2.5 ML VIAL INHALATION ×4 (02:34→20:34)
[2020-04-28 06:19] LABS: Anion Gap 5 mmol/L (8-16); Blood Urea Nitrogen 32 mg/dL (9-20); Calcium 8.5 mg/dL (8.4-10.2); Carbon Dioxide 27 mmol/L (22-30); Chloride 101 mmol/L (98-107); Estimated CRCL calculation 69 ml/min; Estimated Glomerular Filt Rate > 60; Glucose 123 mg/dL (75-110); Potassium 3.6 mmol/L (3.4-5.0); Sodium 133 mmol/L (137-145)
[2020-04-28] MEDS: PRAVASTATIN SODIUM 20 MG TABLET 80 MG PO (08:29)
[2020-04-28] MEDS: FLECAINIDE ACETATE 100 MG TABLET PO (08:29)
[2020-04-28] MEDS: DONEPEZIL HCL 10 MG TABLET PO (08:30)
[2020-04-28] MEDS: acetaZOLAMIDE SODIUM FOR INJ 500 MG VIAL 250 MG IV PUSH (08:30)
[2020-04-28] MEDS: FINASTERIDE 5 MG TABLET PO (08:30)
[2020-04-28] MEDS: FUROSEMIDE INJ 40 MG/4 ML VIAL IV PUSH (08:30)
[2020-04-28] MEDS: POTASSIUM CHLORIDE 20 MEQ TABLET 40 MEQ PO (08:30)
[2020-04-28] MEDS: POTASSIUM CHLORIDE 20 MEQ TABLET.ER PO (08:31)
[2020-04-28] MEDS: WATER, STERILE FOR INJECTION 10 ML VIAL XX (08:34)
--- NOTE | 2020-04-28 10:57 | PM.CNCAR ---
Assessment and Plan Assessment and plan (1) Respiratory failure, [id number]: Qualifiers: Respiratory failure complication: hypoxia and hypercapnia Qualified Code(s): J96.21 - Acute and chronic respiratory failure with hypoxia; J96.22 - Acute and chronic respiratory failure with hypercapnia Code(s): J96.20 - Acute and chronic respiratory failure, unspecified whether with hypoxia or hypercapnia Status: Acute Assessment and Plan: Respiratory status has improved. Patient is status post thoracentesis. Management as per primary team and pulmonology. (2) Paroxysmal atrial fibrillation: Code(s): I48.0 - Paroxysmal atrial fibrillation Status: Acute Assessment and Plan: Continue chronic anticoagulation with rivaroxaban. Would discontinue flecainide as patient has coronary artery disease. (3) Severe aortic stenosis: Code(s): I35.0 - Nonrheumatic aortic (valve) stenosis Status: Acute Assessment and Plan: Patient will undergo TAVR at [facility] after to the RCA. (4) CAD (coronary artery disease): Code(s): I25.10 - Atherosclerotic heart disease of [place] coronary artery without angina pectoris Status: Acute Assessment and Plan: Plan PCI to the RCA with adjunct atherectomy at [facility] in next few days Prior to TAVR. Add low-dose aspirin, continue statin. History of Present Illness History of Present Illness Consult date/time: 04/28/20 10:57 Date of service: 04/28/2020 reason for consult: CHF requesting physician Dr. Thomas chief complaint: Shortness of breath HPI: 84-year-old male with CAD, severe aortic stenosis, atrial fibrillation on chronic anticoagulation with rivaroxaban , COPD on home oxygen, history of CVA. patient admitted to [facility] on 04/16/2020 with complaints of worsening shortness of breath. He was found to have O2 sats at 90% on 4 L of oxygen. EKG on admission which I personally evaluated shows sinus rhythm, intraventricular conduction delay. Patient was found to have right pleural effusion, and had ultrasound-guided thoracentesis yielding 1000 mL of clear, saritha-colored fluid on 04/24/2020. Patient recently had right and left heart catheterization at [facility] prior to transcatheter aortic valve replacement. He was found to have calcific stenosis in the proximal RCA. The stent could not be advanced to the target lesion due to the heavy calcification. Patient was anticipated to return for PCI with adjunctive atherectomy. However, prior to that, patient came to [facility] with worsening shortness of breath. On evaluation today, patient states that his shortness breath has improved. He denies any ongoing chest pain. He is receiving PT OT. Reason For Visit: shortness of breath Review of Systems Constitutional: Constitutional: Denies chills, Denies fatigue, Denies fever(s) and Denies headache(s) Eyes: Eyes: Reports as per HPI, Denies change in vision, Denies loss of vision and Denies eye pain ENT: Reports as per HPI, Reports Normal hearing present, Denies headache(s), Denies lip swelling, Denies epistaxis and Denies sore throat Cardiovascular: Cardiovascular: Reports as per HPI, Denies chest pain, Denies syncope, Denies irregular heart rhythm, Denies lightheadedness and Reports dyspnea Respiratory: Respiratory: Reports as per HPI, Denies cough, Reports dyspnea and Denies wheezing Gastrointestinal: Gastrointestinal: Reports as per HPI, Denies abdominal pain, Denies melena, Denies nausea and Denies vomiting Genitourinary: Genitourinary: Reports as per HPI Musculoskeletal: Musculoskeletal: Reports as per HPI, Denies myalgias, Denies muscle cramps and Denies muscle weakness Integumentary/Breasts: Skin/Breast: Reports as per HPI, Denies pruritus and Denies rash Neurologic: Reports as per HPI, Reports Normal hearing present, Denies behavioral changes, Denies syncope, De
[2020-04-28] MEDS: ASPIRIN 81 MG ENTERIC TABLET PO (11:43)
--- NOTE | 2020-04-28 13:26 | PCOTNOTE ---
Attempted to see patient this date for therapy. Patient refused 04/28/2020.
--- NOTE | 2020-04-28 15:06 | PM.IMPN ---
Progress Note: A&P Assessment and Plan (1) Respiratory failure, [id number]: Qualifiers: Respiratory failure complication: hypoxia and hypercapnia Qualified Code(s): J96.21 - Acute and chronic respiratory failure with hypoxia; J96.22 - Acute and chronic respiratory failure with hypercapnia Code(s): J96.20 - Acute and chronic respiratory failure, unspecified whether with hypoxia or hypercapnia Status: Acute Assessment and Plan: -----likely due to COPD exacerbation but cannot rule out a small component of CHF. hopeful discharge on wednesday cxr still shows pleural effusion and pneumonia 04/28/20 15:06 84 year old male with a past medical history of critical aortic stenosis, atrial fibrillation, diastolic congestive heart failure, COPD and dementia who presented to the ER with shortness of breath That is been worse for the last 2 days. The patient is on 2 L of oxygen at home but had to turned up to 2.5 L on Wednesday. Gradually improving, today patient is required constant BiPAP, however repeat chest x-ray shows persistent pleural effusion and pneumonia, increased patient Lasix 40 mg IV b.i.d. for two dose and fluid restriction to 1500 cc per day, which did improve his clinicall symptoms however patient has significant aortic stenosis reduced significant diuresing, seen by industrial chemicals supervisor recommending thoracentesis to reduce pleural effusion, and held Xarelto and patient had thoracentesis on 04/24 and 1000 cc was removed suspected transudate most likely secondary to CHF, patient was seen by industrial chemicals supervisor again on 04/25 and ordered under the thoracentesis and 600 cc was removed, industrial chemicals supervisor also recommended trilogy for BIPAP ventilation, to improve his oxygenation, on 04/26 again patient was seen by industrial chemicals supervisor patient is much improved and recommended to continue IV Lasix 40 mg b.i.d. to help reduce pleural effusion and CHF, industrial chemicals supervisor also recommending the patient will benefit going into snf or SNF to continue use improvement, today patient was seen by Cardiology as patient has history severe aortic stenosis and coronary artery disease patient is scheduled for TEVAR on May 02 at [facility], if remains clinically stable will discharge the patient to have his procedure Wednesday or , patient is feeling much better denies any shortness of breath fever or chills (2) Acute exacerbation of chronic obstructive airways disease: Code(s): J44.1 - Chronic obstructive pulmonary disease with (acute) exacerbation Status: Acute Assessment and Plan: -----Continue IV Solu-Medrol and nebulizer treatments.iv rocephin and oral doxycycline, patient is a completed course of IV Solu-Medrol is being DC. (3) Acute on chronic diastolic CHF (congestive heart failure): Code(s): I50.33 - Acute on chronic diastolic (congestive) heart failure Status: Acute Assessment and Plan: -----continue Lasix 40 mg IV daily (4) Severe aortic stenosis: Code(s): I35.0 - Nonrheumatic aortic (valve) stenosis Status: Acute Assessment and Plan: -----patient has critical aortic stenosis that he is planning to get repair later this month at [facility]. needs to get stable for surgery (5) Dementia: Code(s): F03.90 - Unspecified dementia without behavioral disturbance Status: Acute Assessment and Plan: -----continue home medications. It sounds like the patient's memory varies. Subjective Date/time seen: 04/28/20 15:06 84 year old male with a past medical history of critical aortic stenosis, atrial fibrillation, diastolic congestive heart failure, COPD and dementia who presented to the ER with shortness of breath That is been worse for the last 2 days. The patient is on 2 L of oxygen at home but had to turned up to 2.5 L on Wednesday. Gradually improving, today patient is required constant BiPAP, howeve
[2020-04-28] MEDS: RIVAROXABAN 20 MG TABLET PO (16:19)
--- NOTE | 2020-04-28 16:28 | PC.NURSE ---
Patient encouraged to sit in the chair for all meals. However, he has been reluctant to do so most of the time. Patient agreeable to sit in chair for dinner at this time. Although, it did take alot of encouraging to get him to agree. Myself and REFRIGERATING TECHNICIAN attempted to get patient to chair for dinner. Using gait belt and the both of us, patient unable to cooperate with getting into chair for dinner. Patient seemed to be pushing against staff and not attempting to try. Instructed patient that it was necessary that in order for him to be discharged he must be able to get himself out of bed. Patient agitated and still not willing to sit in the chair.
--- NOTE | 2020-04-28 18:01 | PC.NURSE ---
Addendum entered by Tatum Larsen RN 04/28/20 18:03: I have discussed with patient the negative effects of staying in bed, not turning, and refusing to sit in the chair/ambulate today. Patient agitated and still refusing at this time. Original Note: Patient refusing to turn off of back side. He is requesting to be pulled up in bed to get off of my butt very frequent. I have discussed with patient multiple times about turning to get off of bottom, turning with pillows, etc. However, he is refusing to turn off of back side.
[2020-04-28 18:50] LABS: Albumin Pleural Fluid 1.9 g/dL
[2020-04-28] MEDS: traZODone HCL 50 MG TABLET 200 MG PO (19:48)
[2020-04-29 01:52] VITALS: PULSE 70; RESP 18
[2020-04-29] MEDS: ALBUTEROL SULFATE NEB 2.5 MG/0.5 ML INH 5 MG INHALATION ×2 (01:52→09:03)
[2020-04-29] MEDS: IPRATROPIUM BR 0.02% INH SOLN 0.5 MG/2.5 ML VIAL INHALATION ×2 (01:52→09:03)
[2020-04-29 01:57] VITALS: PULSE 68; RESP 18
[2020-04-29] MEDS: ACETAMINOPHEN 325 MG TABLET 650 MG PO ×2 (02:03→07:00)
[2020-04-29] MEDS: ALPRAZolam 0.25 MG TABLET PO ×2 (02:03→11:39)
[2020-04-29 06:00] VITALS: BP 109/68; PULSE 71; RESP 18; TEMP 37.2; O2SAT 95
[2020-04-29 07:51] LABS: Anion Gap 5 mmol/L (8-16); Blood Urea Nitrogen 24 mg/dL (9-20); Calcium 8.4 mg/dL (8.4-10.2); Carbon Dioxide 26 mmol/L (22-30); Chloride 104 mmol/L (98-107); Estimated CRCL calculation 77 ml/min; Estimated Glomerular Filt Rate > 60; Glucose 115 mg/dL (75-110); Sodium 135 mmol/L (137-145)
[2020-04-29] MEDS: acetaZOLAMIDE SODIUM FOR INJ 500 MG VIAL 250 MG IV PUSH (08:29)
[2020-04-29] MEDS: POTASSIUM CHLORIDE 20 MEQ TABLET.ER PO (08:29)
[2020-04-29] MEDS: ASPIRIN 81 MG ENTERIC TABLET PO (08:29)
[2020-04-29] MEDS: FUROSEMIDE INJ 40 MG/4 ML VIAL IV PUSH (08:30)
[2020-04-29] MEDS: FINASTERIDE 5 MG TABLET PO (08:30)
[2020-04-29] MEDS: DONEPEZIL HCL 10 MG TABLET PO (08:30)
[2020-04-29] MEDS: PRAVASTATIN SODIUM 20 MG TABLET 80 MG PO (08:30)
[2020-04-29] MEDS: WATER, STERILE FOR INJECTION 10 ML VIAL XX (08:31)
[2020-04-29 09:05] VITALS: PULSE 73; RESP 22; O2SAT 96
[2020-04-29 09:12] VITALS: PULSE 76; RESP 20
--- NOTE | 2020-04-29 10:53 | PCRCNOTE ---
NIMESH FROM [facility] AUTHORIZATION IS STILL PENDING FOR LIZETH
[2020-04-29 13:31] VITALS: BP 117/57; PULSE 71; RESP 22; TEMP 36.4; O2SAT 10
--- NOTE | 2020-04-29 15:06 | PC.NURSE ---
Spoke with Dr. Harris this morning who stated patient should go home with trilogy set up. Also spoke with respiratory who stated that they were waiting on insurance authorization for him to get this set up. Dr. Thomas notified and spoke with Dr. Harris. Martha stated that patient can still discharge without trilogy set up. He has a procedure at [facility] that he needs to be discharged today for.
--- NOTE | 2020-04-29 15:19 | PM.DS ---
DS: Admitting Diagnosis Admitting Diagnosis Admitting Diagnosis: shortness of breath DS: Discharge Diagnosis Discharge Diagnosis (1) Respiratory failure, [id number]: Qualifiers: Respiratory failure complication: hypoxia and hypercapnia Qualified Code(s): J96.21 - Acute and chronic respiratory failure with hypoxia; J96.22 - Acute and chronic respiratory failure with hypercapnia Code(s): J96.20 - Acute and chronic respiratory failure, unspecified whether with hypoxia or hypercapnia Status: Acute Assessment and Plan: -----likely due to COPD exacerbation but cannot rule out a small component of CHF. hopeful discharge on wednesday cxr still shows pleural effusion and pneumonia 04/28/20 15:06 84 year old male with a past medical history of critical aortic stenosis, atrial fibrillation, diastolic congestive heart failure, COPD and dementia who presented to the ER with shortness of breath That is been worse for the last 2 days. The patient is on 2 L of oxygen at home but had to turned up to 2.5 L on Wednesday. Gradually improving, today patient is required constant BiPAP, however repeat chest x-ray shows persistent pleural effusion and pneumonia, increased patient Lasix 40 mg IV b.i.d. for two dose and fluid restriction to 1500 cc per day, which did improve his clinicall symptoms however patient has significant aortic stenosis reduced significant diuresing, seen by lather apprentice recommending thoracentesis to reduce pleural effusion, and held Xarelto and patient had thoracentesis on 04/24 and 1000 cc was removed suspected transudate most likely secondary to CHF, patient was seen by lather apprentice again on 04/25 and ordered under the thoracentesis and 600 cc was removed, lather apprentice also recommended trilogy for BIPAP ventilation, to improve his oxygenation, on 04/26 again patient was seen by lather apprentice patient is much improved and recommended to continue IV Lasix 40 mg b.i.d. to help reduce pleural effusion and CHF, lather apprentice also recommending the patient will benefit going into intermediate or SNF to continue use improvement, today patient was seen by Cardiology as patient has history severe aortic stenosis and coronary artery disease patient is scheduled for TEVAR on May 02 at [facility], if remains clinically stable will discharge the patient to have his procedure Wednesday or , patient is feeling much better denies any shortness of breath fever or chills (2) Acute exacerbation of chronic obstructive airways disease: Code(s): J44.1 - Chronic obstructive pulmonary disease with (acute) exacerbation Status: Acute Assessment and Plan: -----Continue IV Solu-Medrol and nebulizer treatments.iv rocephin and oral doxycycline, patient is a completed course of IV Solu-Medrol is being DC. (3) Acute on chronic diastolic CHF (congestive heart failure): Code(s): I50.33 - Acute on chronic diastolic (congestive) heart failure Status: Acute Assessment and Plan: -----continue Lasix 40 mg IV daily (4) Severe aortic stenosis: Code(s): I35.0 - Nonrheumatic aortic (valve) stenosis Status: Acute Assessment and Plan: -----patient has critical aortic stenosis that he is planning to get repair later this month at [facility]. needs to get stable for surgery (5) Dementia: Code(s): F03.90 - Unspecified dementia without behavioral disturbance Status: Acute Assessment and Plan: -----continue home medications. It sounds like the patient's memory varies. DS: Summary Hospital Course Reason for hospitalization: Chief complaint: shortness of breath Narrative: Jm Wheeler is a 84 year old male with a past medical history of critical aortic stenosis, atrial fibrillation, diastolic congestive heart failure, COPD and dementia who presented to the ER with shortness of breath That is been
--- NOTE | 2020-04-29 18:17 | PC.NURSE ---
During patients stay on the floor, staff, therapy, doctors, etc. have been encouraging patient to discharge to SNF for therapy. However, patient and have been refusing and are adamant that they are going to be able to take him home with the help of their grandson. Myself, and two [employer]'s attempted to assist patient to the vehicle with a gaitbelt and walker. However, patient was very unsteady, almost falling twice, and unable to be assisted into van with the help of an RN and two [employer]'s. Patient's was adamant that they wanted to go home still even though he was very unsafe getting into vehicle. I discussed with her on multiple occasions that I didn't feel that it was safe for them to take the patient home. Even if we were able to get the patient into the vehicle, they more than likely wouldn't be able to get him out when they got home. The verbalized understanding but still wanted to take him home. Myself and two [employer] SE[employer]'s used the lily stedy and gaitbelt to assist patient into the [employer] vehicle. Even with the use of the lily stedy, patient was very unstable and unsafe, in my opinion, to return to home. However, patient and still adamant and persistent that they are taking him home.
== END 2020-04-29 17:00 | disposition home health service (06) | DRG 291 ==
LOC: ANHED 15:09 → ANHICU 21:11 → ANHIMU 04-17 07:07 → ANH2MED 04-19 13:20 → ANHICU 04-30 13:25 → ANHIMU 04-30 13:25
PROVIDERS: Family Medicine; Internal Medicine; Internal Medicine Critical Care Medicine; Admitting Provider Internal Medicine; Emergency Provider Emergency Medicine; PCP Internal Medicine; Visit Provider Physician Assistant
DX: I50.33 Acute on chronic diastolic (congestive) heart failure (principal); J96.21 Acute and chronic respiratory failure with hypoxia; J18.9 Pneumonia, unspecified organism; J96.22 Acute and chronic respiratory failure with hypercapnia; J44.0 Chronic obstructive pulmonary disease with (acute) lower respiratory infection; J44.1 Chronic obstructive pulmonary disease with (acute) exacerbation; G47.33 Obstructive sleep apnea (adult) (pediatric); E78.5 Hyperlipidemia, unspecified; Z87.891 Personal history of nicotine dependence; Z20.828 Contact with and (suspected) exposure to other viral communicable diseases; I35.0 Nonrheumatic aortic (valve) stenosis; F03.90 Unspecified dementia, unspecified severity, without behavioral disturbance, psychotic disturbance, mood disturbance, and anxiety; I48.0 Paroxysmal atrial fibrillation; I25.10 Atherosclerotic heart disease of native coronary artery without angina pectoris; Z79.01 Long term (current) use of anticoagulants; Z86.73 Personal history of transient ischemic attack (TIA), and cerebral infarction without residual deficits; Z99.81 Dependence on supplemental oxygen
CPT/HCPCS: 32555; 36415; 36600; 71045; 80048; 81001; 82040; 82042; 82375; 82465; 82728; 82805; 82945; 82947; 83050; 83605; 83615; 83735; 83880; 83986; 84145; 84155; 84157; 84311; 84478; 84484; 85025; 85027; 85610; 85730; 87040; 87070; 87075; 87102; 87205; 87206; 87635; 88104; 88108; 88305; 89051; 93005; 94002; 94003; 94640; 96365; 96367; 96368; 96375; 97110; 97116; 97161; 97165; 97530; 97535; 99285; A9270; C9803; J0131; J0456; J0696; J1120; J1940; J2920; J2930; J3475; J7040; U0003

== ENCOUNTER 2020-05-10 11:24 | Emergency (ER) | payer MEDICARE, SELFPAY ==
[2020-05-10] VITALS (22 sets, daily range): BP systolic 103–130; BP diastolic 54–68; PULSE 76–88; RESP 19–42; TEMP 36.6; O2SAT 92–100
--- NOTE | ~2020-05-10 | XR_ITS ---
EXAMINATION: [id number] DATE: 05/10/2020 15:56 INDICATION: Right pleural effusion status post thoracentesis. TECHNIQUE: Frontal and lateral views of the chest were obtained on 3 radiographs. COMPARISON: Chest 2 views 05/10/2020, chest CT 03/28/2020 FINDINGS: There are small pleural effusions. There are airspace opacities at the lung bases. There ar e lucencies in the lungs, consistent with emphysema. There is mild scarring at the lung apices. No pn eumothorax. The heart size is normal. IMPRESSION: 1. Small pleural effusions with improvement on the right status post thoracentesis. 2. Emphysema. 3. Airspace opacities at the lung bases, likely atelectasis. Reviewed, dictated and finalized at location A. IMPRESSION: 1. Small pleural effusions with improvement on the right status post thoracente sis. 2. Emphysema. 3. Airspace opacities at the lung bases, likely atelectasis.
--- NOTE | ~2020-05-10 | US_ITS ---
EXAMINATION: US thoracentesis DATE: 05/10/2020 15:58 INDICATION: pleural effusion TECHNIQUE: The procedure and its risks, benefits, and alternatives were discussed with the patient. P otential risks discussed included bleeding, infection, and pneumothorax. The patient understood the r isks and agreed to proceed. The skin was prepped and draped in sterile fashion. 1% lidocaine was used for local anesthesia. Under ultrasound guidance, a 5 Fr catheter with trochar was advanced into the right pleural effusion. Fluid was aspirated. The catheter was removed, and a dressing was applied. Th ere were no immediate complications. FINDINGS: Ultrasound images demonstrate a right pleural effusion and the catheter within the fluid. IMPRESSION: 1. Successful ultrasound-guided thoracentesis yielding 1000 mL of clear, saritha-colored fluid. Reviewed, dictated and finalized at location A. IMPRESSION: 1. Successful ultrasound-guided thoracentesis yielding 1000 mL of clear, saritha -colored fluid.
--- NOTE | ~2020-05-10 | XR_ITS ---
EXAMINATION: XR chest 2V DATE: 05/10/2020 12:55 INDICATION: Shortness of breath TECHNIQUE: AP and lateral views of the chest are obtained. COMPARISON: 04/25/2020 FINDINGS: Small pleural effusions are present, right greater than left. There are associated airspace opacities of the lung bases. No pneumothorax is identified. The heart size is normal for technique. There is moderate thoracic spondylosis. IMPRESSION: 1. Small pleural effusions, right greater than left. 2. Bibasilar airspace opacities, likely passive atelectasis. Reviewed, dictated and finalized at location A.
--- NOTE | 2020-05-10 11:34 | ECG_ITS ---
Measurements Intervals [place] Rate: 84 P: 40 IL: 221 QRS: 17 QRSD: 82 T: 54 QT: 379 QTc: 451 Interpretive Statements SINUS RHYTHM WITH FIRST DEGREE AV BLOCK BASELINE ARTIFACT- I, II, III, AVR, AVL, AVF, V4-V6 ABNORMAL ECG Electronically Signed On 05-10-2020 15:17:31 CDT by Sarwat Tolentino D.O.
--- NOTE | 2020-05-10 11:59 | PC.NURSE ---
pt. assisted with urinal in [facility] bathroom. No acute distress, stands with assist of 1
--- NOTE | 2020-05-10 12:47 | PC.NURSE ---
Pt taken to Xray
--- NOTE | 2020-05-10 12:50 | PC.NURSE ---
Report received from LALO Martin. Pt just returning from radiology.
[2020-05-10 13:41] LABS: Basophils Percent Auto 0.7 % (0.2-1.2); Eosinophils Absolute Auto 0.4 K/mm3 (0-0.3); Eosinophils Percent Auto 9.5 % (0-4.4); Hematocrit 35.2 % (42.0-52.0); Hemoglobin 10.9 g/dL (14.0-18.0); Immature Granulocyte Absolute 0.02 K/mm3 (0.00-0.031); Immature Granulocyte Percent A 0.5 % (0-0.5); Lymphocytes Absolute Auto 0.86 K/mm3 (0.9-3.2); Lymphocytes Percent Auto 20.5 % (18.3-44.2); Mean Corpuscular Hemoglobin 27.3 pg (26-34); Mean Corpuscular Volume 88.2 fl (80-100); Mean Platelet Volume 10.7 fl (7.4-10.4); Monocytes Absolute Auto 0.4 K/mm3 (0.1-0.6); Monocytes Percent Auto 8.6 % (2.6-8.5); Neutrophils Absolute Auto 2.5 K/mm3 (1.3-6.7); Neutrophils Percent Auto 60.2 % (45.5-73.1); Platelet Count Result 200 k/mm3 (150-375); Red Blood Count 3.99 M/mm3 (4.6-6.20); Red Cell Distribution Width 17.6 % (11.5-14.5); White Blood Count 4.2 K/mm3 (4.5-10.0)
[2020-05-10 13:50] LABS: INR 1.1; Prothrombin Time 13.6 Seconds (11.1-14.7)
[2020-05-10 13:51] LABS: Partial Thromboplastin Time 28.1 SECONDS (22.3-36.8)
[2020-05-10 13:55] LABS: Anion Gap 7 mmol/L (8-16); Blood Urea Nitrogen 8 mg/dL (9-20); Calcium 8.9 mg/dL (8.4-10.2); Carbon Dioxide 29 mmol/L (22-30); Chloride 101 mmol/L (98-107); Estimated Glomerular Filt Rate > 60; Glucose 105 mg/dL (75-110); Potassium 3.4 mmol/L (3.4-5.0); Sodium 137 mmol/L (137-145)
[2020-05-10 14:04] LABS: NT Pro B Type Natriuretic Pept 1140 PG/ML (5-100)
--- NOTE | 2020-05-10 15:03 | PC.NURSE ---
Pt to go to ultrasound for therapeutic thoracentesis. Per pt's pt's last xaralto was at 1900 last evening.
--- NOTE | 2020-05-10 15:14 | PC.NURSE ---
To U/S via stretcher.
--- NOTE | 2020-05-10 15:16 | ED.SOB ---
HPI - SOB/Dyspnea General Chief Complaint: Shortness of Breath/Dyspnea Stated Complaint: shortness breath, edema Time Seen by Provider: 05/10/20 12:30 History of Present Illness HPI Narrative: Patient is an 84-year-old male who presents the ER with lower extremity edema and shortness of breath. Patient was referred here by his radiological technologist to receive a thoracentesis on the right side. Patient received a thoracentesis approximately 2 weeks ago which resulted in removal of 650 mL of fluid. Patient is currently undergoing work-up and evaluation to have a TAVR procedure. Patient is not having chest pain/Raynaud's/sore throat/productive cough. Related Data Home Medications Medication Instructions Recorded Confirmed Trelegy Ellipta 1 inh INHALATION DAILY 03/29/20 04/16/20 Xarelto 20 mg PO DAILY 03/29/20 04/16/20 donepezil [Aricept] 10 mg PO DAILY 03/29/20 04/16/20 finasteride 5 mg PO DAILY 03/29/20 04/16/20 furosemide [Lasix] 40 mg PO DAILY 03/29/20 04/16/20 oxybutynin chloride [Ditropan XL] 5 mg PO QID 03/29/20 04/16/20 pravastatin 80 mg PO DAILY 03/29/20 04/16/20 trazodone 200 mg PO HS 03/29/20 04/16/20 Adults Multivitamin 05/10/20 Glucosamine Chondroitin 05/10/20 Lexapro 10 mg 05/10/20 PreserVision AREDS 05/10/20 Probiotic (B. coagulans) 05/10/20 Saccharomyces boulardii 05/10/20 acetaminophen-codeine tablet 05/10/20 calcium carbonate-vitamin D3 05/10/20 clopidogrel 05/10/20 flecainide 05/10/20 guaifenesin 05/10/20 lansoprazole [Prevacid] 05/10/20 meclizine 25 mg PO TID 05/10/20 05/10/20 melatonin 10 mg PO HS PRN 05/10/20 05/10/20 potassium chloride 05/10/20 vitamin [id number] acid 05/10/20 Allergies Allergy/AdvReac Type Severity Reaction Status Date / Time No Known Drug Allergies Allergy Unknown Other Verified 05/10/20 14:14 Review of Systems Review of Systems: All systems reviewed & are unremarkable except as noted in HPI and below Constitutional: Constitutional: Denies chills, Denies fever(s) and Reports weakness ENT: Denies nasal congestion and Denies sore throat Cardiovascular: Cardiovascular: Denies chest pain and Denies radiating jaw, neck or arm pain Respiratory: Respiratory: Denies cough, Reports dyspnea and Denies wheezing Gastrointestinal: Gastrointestinal: Denies abdominal pain, Denies nausea and Denies vomiting PMFSH Social History Social History Social History: He drank beer quite heavily until the late 1960s. Primary care physician: Dr. Ramo Hughes Code status: Full code per EMR. Healthcare power of civil litigation attorney: Daughter, Robinson Lopez Smoking packs per day: 1 Smoking cigarettes per day: 20.0 Years smoked: 24 Smoking pack-years: 24.00 Smoking status: Former smoker Tobacco type: cigarettes Smoking end date: 09/06/11 Alcohol intake: never Substance use: never Additional living arrangements comments: He lives in [place] with his of 35 years. This is 2nd marriage. He ambulates with a walker. 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 Gender identity (if verbalized by the patient): Male Spiritual care concerns: No Exam Narrative: Exam Narrative: GENERAL: Well-appearing, well-nourished, and in no acute distress. HEAD: Normocephalic, atraumatic. ENT: Mucous membranes moist. CHEST: Clear to auscultation. No respiratory distress. HEART: Regular rate and rhythm. Normal peripheral pulses. ABDOMEN: Soft, nontender, nondistended. EXTREMITIES: Normal range of motion. No edema. SKIN: Warm, dry, no rash. NEURO: Alert and oriented x3. Course Course Emergency Course: Patient has been resting comfortably since thoracentesis. Patient feels like he can breathe much better. He has been observed for 2 hours post procedure. is present and comfortable with discharge. Vital Signs Vital signs: Vital Signs Pulse Rate 87 09/0
--- NOTE | 2020-05-10 16:11 | PC.NURSE ---
Pt states is feeling so much better after thoracentesis. Warm blanket offered.
== END 2020-05-10 19:20 | disposition home or self-care (01) ==
PROVIDERS: Emergency Provider Emergency Medicine; PCP Internal Medicine
DX: J90 Pleural effusion, not elsewhere classified (principal); R06.02 Shortness of breath; Z87.891 Personal history of nicotine dependence; I44.0 Atrioventricular block, first degree
CPT/HCPCS: 32555; 36415; 71046; 80048; 83880; 85025; 85610; 85730; 93005; 99284

== ENCOUNTER 2020-05-17 10:24 | Outpatient (CLI) | payer MEDICARE, SELFPAY ==
--- NOTE | ~2020-05-17 | XR_ITS ---
XR chest 2V 05/17/2020 10:50 Indication: Pleural effusion Procedure: AP and lateral views of the chest Comparison: Comparison to multiple prior studies sequentially, with oldest reviewed study dated 04/22. Findings: Cardiomegaly with interstitial edema. Small pleural effusions. No pneumothorax. Chronic api marian pleural thickening or scarring. Impression: 1: Cardiomegaly with interstitial edema. 2: Small pleural effusions. Reviewed, dictated and finalized at location A. Impression: 1: Cardiomegaly with interstitial edema. 2: Small pleural effusions.
== END 2020-05-17 10:25 | disposition home or self-care (01) ==
LOC: ANHIMG 10:30
PROVIDERS: PCP Internal Medicine; Visit Provider Nurse Practitioner
DX: J90 Pleural effusion, not elsewhere classified (principal); I51.7 Cardiomegaly
CPT/HCPCS: 71046